=== PATIENT | male | born 1965 | race Caucasian/White ===

== ENCOUNTER 2016-07-13 11:23 | Emergency (ER) | payer MEDICAID ==
[2016-07-13] MEDS ORDERED: LORazepam 2 MG/ML SYRINGE IVP STA (12:41)
[2016-07-13] MEDS ORDERED: SODIUM CHLORIDE 0.9% 1,000 ML IV ONE (12:41)
[2016-07-13] MEDS ORDERED: LORazepam 2 MG/ML SYRINGE ONE (13:02)
== END 2016-07-13 15:14 | disposition home or self-care (01) ==
DX: F10.120 Alcohol abuse with intoxication, uncomplicated (principal); F41.9 Anxiety disorder, unspecified
CPT/HCPCS: 80053; 80320; 83690; 85025; 96361; 96375; 99283; 99284; J2060

== ENCOUNTER 2016-08-24 13:35 | Outpatient (CLI) | payer MEDICAID | END 2016-08-24 13:36 | disposition home or self-care (01) | DX: I10 Essential (primary) hypertension (principal); E78.5 Hyperlipidemia, unspecified ==

== ENCOUNTER 2016-08-28 13:05 | Outpatient (CLI) | payer MEDICAID | END 2016-08-28 13:06 | disposition home or self-care (01) | DX: D53.9 Nutritional anemia, unspecified (principal) ==

== ENCOUNTER 2016-10-30 14:33 | Outpatient (CLI) | payer MEDICAID | END 2016-10-30 14:34 | disposition critical access hospital (66) | DX: R45.851 Suicidal ideations (principal) | CPT/HCPCS: A0425; A0429 ==

== ENCOUNTER 2016-10-30 15:00 | Emergency (ER) | payer MEDICAID ==
--- NOTE | 2016-10-30 15:23 | ED Physician Documentation ---
PD HPI MHE - Stated complaint Stated Complaint: ETOH, SI - Chief complaint Chief Complaint: General - History obtained from History obtained from: Patient - History of Present Illness Primary symptom: Suicidal ideation Timing - onset: Other (several days worse than usual) Pain level max: 0 Pain level now: 0 Contributing factors: Substance abuse - ETOH ("on a reynaga since Wednesday".) Similar symptoms before: Diagnosis (SI, depression, alcoholism.) Recently seen: Not recently seen Review of Systems Unable to obtain: Intoxicated Ten Systems: 10 systems reviewed and negative Constitutional: denies: Fever, Chills Ears: denies: Ear pain Nose: denies: Rhinorrhea / runny nose, Congestion Throat: denies: Sore throat Cardiac: denies: Chest pain / pressure Respiratory: denies: Cough GI: denies: Abdominal Pain, Nausea, Vomiting, Diarrhea Skin: denies: Rash Musculoskeletal: denies: Neck pain, Back pain Psychiatric: reports: Suicidal (states wants the police to shoot him or he wants to take a lot of pills.) PD PAST MEDICAL HISTORY - Past Medical History Past Medical History: Yes Cardiovascular: High cholesterol, Arrhythmia Respiratory: Other Neuro: None Endocrine/Autoimmune: None GI: None : None HEENT: Chronic sinusitis Psych: Depression, Anxiety Musculoskeletal: None Derm: None - Past Surgical History Past Surgical History: No - Present Medications Home Medications: Ambulatory Orders Medication Instructions Recorded Confirmed Atorvastatin Calcium 80 mg PO DAILY 07/13/16 07/13/16 Gabapentin 600 mg PO DAILY 07/13/16 07/13/16 Lorazepam [Ativan] 1 mg PO Q6H PRN #25 tablet 07/13/16 Promethazine [Phenergan] 25 mg PO Q6H PRN #20 tab 07/13/16 - Allergies Allergies/Adverse Reactions: Allergies Allergy/AdvReac Type Severity Reaction Status Date / Time Penicillins Allergy Mild Unknown Verified 07/13/16 12:15 - Social History Does the pt smoke?: Yes Smoking Status: Current every day smoker Does the pt drink ETOH?: Yes Does the pt have substance abuse?: No - Immunizations Immunizations are current?: Yes - POLST Patient has POLST: No PD ED PE NORMAL - Vitals Vital signs reviewed: Yes - General General: Alert and oriented X 3, No acute distress, Well developed/nourished - HEENT HEENT: PERRL, Moist mucous membranes - Neck Neck: Supple, no meningeal sign - Cardiac Cardiac: RRR, Strong equal pulses - Respiratory Respiratory: No respiratory distress, Clear bilaterally - Abdomen Abdomen: Soft, Non tender, Non distended - Derm Derm: Warm and dry, No rash - Extremities Extremities: No deformity - Neuro Neuro: Alert and oriented X 3 - Psych Psych: Other (intoxicated) Results - Vitals Vitals: Vital Signs - 24 hr 10/30/16 10/30/16 10/30/16 15:01 18:16 23:38 Temperature 37.4 C 36.7 C Heart Rate 84 91 67 Respiratory 19 16 16 Rate Blood Pressure 153/103 H 113/90 H 120/81 H O2 Saturation 98 97 97 Oxygen O2 Source Room air - Labs Labs: Laboratory Tests 10/30/16 10/30/16 10/30/16 15:20 15:30 15:30 WBC 7.7 RBC 4.27 L Hgb 14.1 Hct 39.7 L MCV 92.9 MCH 33.0 H MCHC 35.5 RDW 13.7 Plt Count 250 MPV 7.5 Neut # 4.7 Lymph # 2.3 Bertie # 0.6 Eos # 0.0 Baso # 0.1 Absolute Nucleated RBC 0.00 Nucleated RBCs 0.0 Sodium 134 L Potassium 3.7 Chloride 97 L Carbon Dioxide 25 Anion Gap 12.0 BUN 13 Creatinine 0.7 Estimated GFR (MDRD) 118 Glucose 100 Calcium 9.8 Total Bilirubin 1.0 AST 38 ALT 30 Alkaline Phosphatase 51 Total Protein 7.3 Albumin 4.7 Globulin 2.6 Albumin/Globulin Ratio 1.8 Lipase 25 TSH Urine Color STRAW Urine Clarity CLEAR Urine pH 7.0 Ur Specific [place] <=1.005 Urine Protein NEGATIVE Urine Glucose (UA) NEGATIVE Urine Ketones NEGATIVE Urine Occult Blood NEGATIVE Urine Nitrite NEGATIVE Urine Bilirubin NEGATIVE Urine Urobilinogen 0.2 (NORMAL) Ur Leukocyte Esterase NEGATIVE Ur Microscopic Review NOT INDICATED Urine Culture Comments NOT INDICATED Salicylates < 6.0 Urine Opiates Screen NEGATIVE Ur Oxycodone Screen NEGATIVE Urine Methadone Screen NEGATIVE Ur Propoxyphene Screen NEGATIVE Acetaminophen < 10 L Ur Barbiturates Screen NEGATIVE Ur Tricyclics Screen NEGATIVE Ur Phencyclidine Scrn NEGATIVE Ur Amphetamine Screen NEGATIVE U Methamphetamines Scrn NEGATIVE U Benzodiazepines Scrn NEGATIVE Urine Cocaine Screen NEGATIVE U Cannabinoids Screen NEGATIVE Ethyl Alcohol 323.3 10/30/16 15:30 WBC RBC Hgb Hct MCV MCH MCHC RDW Plt Count MPV Neut # Lymph # Bertie # Eos # Baso # Absolute Nucleated RBC Nucleated RBCs Sodium Potassium Chloride Carbon Dioxide Anion Gap BUN Creatinine Estimated GFR (MDRD) Glucose Calcium Total Bilirubin AST ALT Alkaline Phosphatase Total Protein Albumin Globulin Albumin/Globulin Ratio Lipase TSH 1.19 Urine Color Urine Clarity Urine pH Ur Specific [place] Urine Protein Urine Glucose (UA) Urine Ketones Urine Occult Blood Urine Nitrite Urine Bilirubin Urine Urobilinogen Ur Leukocyte Esterase Ur Microscopic Review Urine Culture Comments Salicylates Urine Opiates Screen Ur Oxycodone Screen Urine Methadone Screen Ur Propoxyphene Screen Acetaminophen Ur Barbiturates Screen Ur Tricyclics Screen Ur Phencyclidine Scrn Ur Amphetamine Screen U Methamphetamines Scrn U Benzodiazepines Scrn Urine Cocaine Screen U Cannabinoids Screen Ethyl Alcohol PD MEDICAL DECISION MAKING - ED course Complexity details: reviewed old records, reviewed results, re-evaluated patient , considered differential, d/w patient ED course: Patient is a 51-year-old male with suicidal ideation. States that he has lost everything in his life and has nothing to live for. Does not see the point of going to treatment as it has not helped in the past. Patient is an alcoholic and states that he began drinking again because his doctor would not give him Ativan. He lives at home with his elderly mother. As he is significantly intoxicated here, will allow him to sober in the emergency department and be reevaluated for suicidal ideation. Patient signed out to Dr. Beach, [facility] emergency department physician for further evaluation. This document was made in part using voice recognition software. While efforts are made to proofread this document, sound alike and grammatical errors may occur. Departure - Departure Clinical Impression: Suicidal ideation Alcohol intoxication Qualifiers: Complication of substance-induced condition: uncomplicated Qualified Code(s): F10.120 - Alcohol abuse with intoxication, uncomplicated Depression Qualifiers: Depression Type: unspecified Qualified Code(s): F32.9 - Major depressive disorder, single episode, unspecified Condition: Stable
[2016-10-30 15:35] LABS: BILIRUBIN,URINE NEGATIVE (NEGATIVE)
[2016-10-30 15:36] LABS: UA CHARGE (STRIP ONLY) YES; UR CULTURE IF IND NOT INDICATED
[2016-10-30] MEDS ORDERED: FOLIC ACID INJ 1 MG, THIAMINE INJ 100 MG, MAGNESIUM SULFATE 2 GM, MULTIVITAMIN 10 ML in... IV STA ×5 (15:46)
[2016-10-30] MEDS ORDERED: PANTOPRAZOLE 40 MG VIAL IVP STA (15:46)
[2016-10-30] MEDS ORDERED: PANTOPRAZOLE 40 MG VIAL ONE (15:47)
[2016-10-30 15:49] LABS: BASOPHILS # (AUTO) 0.1 10^3/uL (0.0-0.1); EOSINOPHILS % (AUTO) 0.3 %; HCT - HEMATOCRIT 39.7 % (42.0-52.0); HGB - HEMOGLOBIN 14.1 g/dL (14.0-18.0); LYMPHOCYTES # (AUTO) 2.3 10^3/uL (1.5-3.5); LYMPHOCYTES % (AUTO) 29.9 %; MEAN CORPUSCULAR HGB CONC 35.5 g/dL (32.0-36.0); MEAN CORPUSCULAR VOLUME 92.9 fL (80.0-94.0); MEAN PLATELET VOLUME 7.5 fL (7.4-11.4); MONOCYTES # (AUTO) 0.6 10^3/uL (0.0-1.0); MONOCYTES % (AUTO) 7.2 %; NEUTROPHILS # (AUTO) 4.7 10^3/uL (1.5-6.6); NEUTROPHILS % (AUTO) 61.6 %; RED BLOOD COUNT 4.27 10^6/uL (4.70-6.10); RED CELL DISTRIBUTION WIDTH 13.7 % (12.0-15.0); UNCORRECTED WHITE BLOOD COUNT 7.7 x10^3/uL; WHITE BLOOD COUNT 7.7 x10^3/uL (4.8-10.8)
[2016-10-30 15:59] LABS: ALBUMIN/GLOBULIN RATIO 1.8 (1.0-2.2); BUN - BLOOD UREA NITROGEN 13 mg/dL (6-20); CALCIUM 9.8 mg/dL (8.5-10.3); CARBON DIOXIDE - CO2 25 mmol/L (21-32); CHLORIDE 97 mmol/L (101-111); CREATININE 0.7 mg/dL (0.6-1.2); GFR - MDRD 118 (>89); GLUCOSE 100 mg/dL (70-100); LIPASE 25 U/L (22-51); POTASSIUM 3.7 mmol/L (3.5-5.0); SALICYLATE < 6.0 mg/dL; SODIUM 134 mmol/L (135-145); TOTAL PROTEIN 7.3 g/dL (6.7-8.2)
[2016-10-30 16:04] LABS: ACETAMINOPHEN < 10 ug/mL (10-30)
[2016-10-30] MEDS ORDERED: IBUPROFEN 600 MG TABLET PO ONE (20:55)
[2016-10-30] MEDS ORDERED: IBUPROFEN 600 MG TABLET PO STA (21:47)
[2016-10-31] MEDS ORDERED: chlordiazePOXIDE 25 MG CAPSULE PO ONE (01:52)
[2016-10-31] MEDS ORDERED: chlordiazePOXIDE 25 MG CAPSULE PO STA (01:52)
[2016-10-31 01:57] VITALS: BP 133/83
--- NOTE | 2016-10-31 02:01 | ED Physician Documentation ---
ED Addendum - Addendum Addendum: 10/31/16 02:00 Patient was signed over to me from dr. Gutierrez. Patient was pending sobriety and re-evaluation. repeat etoh was 62. Patient was awake, alert and coherent. Patient was starting to feel a little tremulous and was treated with librium. patient states that he remembers last night and that he went to the ambulance station and that he wanted help to stop drinking. questioning this morning revealed an awake and alert patient. he denied any suicidal or homicidal ideation at this point. Patient's vital signs were within normal limits and patient was stable for discharge with outpatient follow up.
== END 2016-10-31 02:18 | disposition home or self-care (01) ==
LOC: EDUNIT# → SUPCPDRO 15:00 → ED 15:00
DX: F10.129 Alcohol abuse with intoxication, unspecified (principal); F32.9 Major depressive disorder, single episode, unspecified; R45.851 Suicidal ideations; E78.00 Pure hypercholesterolemia, unspecified; F17.200 Nicotine dependence, unspecified, uncomplicated
CPT/HCPCS: 36415; 80053; 80306; 80307; 80320; 80329; 81003; 83690; 84443; 85025; 96374; 96375; 99284; A9270; J3411; 81001; 87086

== ENCOUNTER 2017-02-12 09:47 | Outpatient (CLI) | payer MEDICAID | END 2017-02-12 09:48 | disposition EMS.NT | LOC: EMS 09:47 | PROVIDERS: ATTEND Surgery | DX: Z03.89 Encounter for observation for other suspected diseases and conditions ruled out (principal) ==

== ENCOUNTER → 2017-05-30 | Outpatient (CLI) | payer MEDICAID | LOC: LAB.F 08:00 | PROVIDERS: ATTEND Nurse Practitioner Family | DX: Z53.9 Procedure and treatment not carried out, unspecified reason (principal) ==

== ENCOUNTER 2017-06-03 11:35 | Outpatient (CLI) | payer MEDICAID ==
[2017-06-03 18:32] LABS: BASOPHILS % (AUTO) 0.6 %; EOSINOPHILS # (AUTO) 0.1 10^3/uL (0.0-0.7); EOSINOPHILS % (AUTO) 2.6 %; HCT - HEMATOCRIT 43.3 % (42.0-52.0); HGB - HEMOGLOBIN 14.4 g/dL (14.0-18.0); LYMPHOCYTES # (AUTO) 1.9 10^3/uL (1.5-3.5); LYMPHOCYTES % (AUTO) 34.9 %; MEAN CORPUSCULAR HEMOGLOBIN 32.5 pg (27.0-31.0); MEAN CORPUSCULAR HGB CONC 33.2 g/dL (32.0-36.0); MEAN CORPUSCULAR VOLUME 97.9 fL (80.0-94.0); MEAN PLATELET VOLUME 8.3 fL (7.4-11.4); MONOCYTES # (AUTO) 0.6 10^3/uL (0.0-1.0); MONOCYTES % (AUTO) 10.3 %; NEUTROPHILS # (AUTO) 2.8 10^3/uL (1.5-6.6); NEUTROPHILS % (AUTO) 51.6 %; NUCLEATED RED BLOOD CELLS AUTO 0.1 /100WBC; RED BLOOD COUNT 4.42 10^6/uL (4.70-6.10); RED CELL DISTRIBUTION WIDTH 14.4 % (12.0-15.0); UNCORRECTED WHITE BLOOD COUNT 5.4 x10^3/uL; WHITE BLOOD COUNT 5.4 x10^3/uL (4.8-10.8)
[2017-06-03 18:42] LABS: ALBUMIN/GLOBULIN RATIO 1.7 (1.0-2.2); BILIRUBIN,TOTAL 0.9 mg/dL (0.2-1.0); BUN - BLOOD UREA NITROGEN 16 mg/dL (6-20); CALCIUM 9.8 mg/dL (8.5-10.3); CARBON DIOXIDE - CO2 26 mmol/L (21-32); CHLORIDE 101 mmol/L (101-111); CHOL/HDL RATIO 4.4 (<5.0); CHOLESTEROL 258 mg/dL; CREATININE 0.8 mg/dL (0.6-1.2); GFR - MDRD 101 (>89); GLUCOSE 106 mg/dL (70-100); HDL CHOLESTEROL 59 mg/dL; LDL/HDL RATIO 2.8 (<3.6); POTASSIUM 4.6 mmol/L (3.5-5.0); SODIUM 137 mmol/L (135-145); TOTAL PROTEIN 7.7 g/dL (6.7-8.2); TRIGLYCERIDES 178 mg/dL; VLDL CHOLESTEROL 36 mg/dL
== END 2017-06-03 11:36 | disposition home or self-care (01) ==
LOC: LAB.F 11:35
PROVIDERS: ATTEND Nurse Practitioner Family
DX: I10 Essential (primary) hypertension (principal); E78.5 Hyperlipidemia, unspecified; Z12.11 Encounter for screening for malignant neoplasm of colon
CPT/HCPCS: 36415; 80050; 80061; 82270

== ENCOUNTER 2017-08-05 08:21 | Outpatient (CLI) | payer MEDICAID ==
[2017-08-05 14:26] LABS: ALBUMIN 4.7 g/dL (3.2-5.5); ALKALINE PHOSPHATASE 58 IU/L (42-121); ALT ALANINE AMINOTRANSFERASE 29 IU/L (10-60); AST ASPARTATE AMINOTRANSFERASE 33 IU/L (10-42); BILIRUBIN,DIRECT 0.2 mg/dL (0.1-0.5); BILIRUBIN,TOTAL 1.1 mg/dL (0.2-1.0); CHOL/HDL RATIO 2.7 (<5.0); CHOLESTEROL 146 mg/dL; HDL CHOLESTEROL 55 mg/dL; LDL CHOLESTEROL,CALCULATED 74 mg/dL; LDL/HDL RATIO 1.3 (<3.6); TOTAL PROTEIN 7.3 g/dL (6.7-8.2); VLDL CHOLESTEROL 17 mg/dL
== END 2017-08-05 08:22 | disposition home or self-care (01) ==
LOC: LAB.F 08:21
PROVIDERS: ATTEND Nurse Practitioner Family
DX: E78.5 Hyperlipidemia, unspecified (principal)
CPT/HCPCS: 36415; 80061; 80076; 83721

== ENCOUNTER 2018-05-02 07:25 | Outpatient (CLI) | payer MEDICAID | END 2018-05-02 07:26 | disposition EMS.NT | LOC: EMS 07:25 | PROVIDERS: ATTEND Surgery | DX: R44.1 Visual hallucinations (principal) ==

== ENCOUNTER 2018-05-02 08:16 | Inpatient (IN) | payer MEDICAID ==
--- NOTE | 2018-05-02 08:34 | ED Physician Documentation ---
PD HPI ALTERED MENTAL STATUS - Stated complaint Stated Complaint: TREMORS - Chief complaint Chief Complaint: MHE - History obtained from History obtained from: Patient - History of Present Illness Timing - onset: Today Timing - duration: Days (1) Timing - details: Gradual onset, Still present Quality / character: Agitated, Hallucinating (The patient was feeling anxious and reportedly was a little bit hyperactive agitated but not upset or combative. He was at home and thought he saw cats in the house that were not there and also people standing on the porch that were not there according to his mother. She called the EMS. The Dance Historian noted that the patient was really little bit anxious and agitated and was adamant about having the visions. However the officer could not see anything either. The patient was brought here for further evaluation with concern of withdrawal delirium. He states he does have history of alcoholism and had only been having 2 drinks a day for the last several months. He states he drank a little more heavily with with the football game last and may be for a few days before that. He states he then wanted to stop and so had only had 1 glass of wine 2 days ago but otherwise no alcohol for the last 3-1/2 days aside from that. He denies any new medications. He denies any recreational drug use.) Associated symptoms: No: Fever, Headache, Stiff neck, Cough, NVD, General weakness Contributing factors: Substance abuse (alcohol, with last drink 2 days ago). No: Recent med change, Recent illness, Intoxicated [place] status: Alert and oriented X 3, Ambulatory Similar symptoms before: Diagnosis (had withdrawal delerium and hallucinations few years ago, then was in detox.) Recently seen: Not recently seen Review of Systems Constitutional: denies: Fever, Chills, Myalgias Nose: denies: Rhinorrhea / runny nose, Congestion Throat: denies: Sore throat Cardiac: denies: Chest pain / pressure Respiratory: denies: Cough GI: reports: Nausea (for few days and states has not had much fluids nor food for few days.). denies: Vomiting, Diarrhea : denies: Dysuria, Frequency Neurologic: reports: Confused. denies: Generalized weakness, Focal weakness, Headache, Head injury PD PAST MEDICAL HISTORY - Past Medical History Cardiovascular: High cholesterol, Arrhythmia Respiratory: Other Endocrine/Autoimmune: None GI: None : None HEENT: Chronic sinusitis Psych: Depression, Anxiety Musculoskeletal: None Derm: None - Past Surgical History Past Surgical History: No - Present Medications Home Medications: Ambulatory Orders Medication Instructions Recorded Confirmed Gabapentin 600 mg PO TID 07/13/16 05/02/18 Lisinopril 40 mg PO DAILY 05/02/18 05/02/18 Propranolol HCl 20 mg PO TID 05/02/18 05/02/18 hydroCHLOROthiazide 25 mg PO DAILY 05/02/18 05/02/18 [Hydrochlorothiazide] - Allergies Allergies/Adverse Reactions: Allergies Allergy/AdvReac Type Severity Reaction Status Date / Time Penicillins Allergy Mild Unknown Verified 05/02/18 08:24 - Social History Does the pt smoke?: Yes Smoking Status: Current every day smoker Does the pt drink ETOH?: Yes Does the pt have substance abuse?: No - Immunizations Immunizations are current?: Yes - POLST Patient has POLST: No PD ED PE NORMAL - Vitals Vital signs reviewed: Yes - General General: Alert and oriented X 3, Well developed/nourished, Other (somewhat anxious but pleasant and interacts. Moderately hyperactive/restless. Mild tremors. ) - HEENT HEENT: Atraumatic, Ears normal, Pharynx benign. No: Moist mucous membranes - Neck Neck: Supple, no meningeal sign, No adenopathy - Cardiac Cardiac: RRR, No murmur - Respiratory Respiratory: Clear bilaterally - Abdomen Abdomen: Soft, Non tender - Back Back: No CVA TTP - Derm Derm: Normal color, Warm and dry - Extremities Extremities: No deformity, No tenderness to palpate, Normal ROM s pain - Neuro Neuro: Alert and oriented X 3, senior android developer 2-12 intact, No motor deficit, No sensory deficit, Normal speech Eye Opening: Spontaneous Motor: Obeys Commands Verbal: Oriented GCS Score: 15 Results - Vitals Vitals: Vital Signs - 24 hr 05/02/18 05/02/18 08:20 10:34 Temperature 36.7 C Heart Rate 97 95 Respiratory 16 20 Rate Blood Pressure 158/131 H 122/76 O2 Saturation 97 97 Oxygen O2 Source Room air - Labs Labs: Laboratory Tests 05/02/18 05/02/18 05/02/18 09:10 09:10 09:10 WBC 12.3 H RBC 4.11 L Hgb 13.9 L Hct 38.2 L MCV 92.9 MCH 33.7 H MCHC 36.3 H RDW 12.6 Plt Count 157 MPV 7.7 Neut # (Auto) 9.1 H Lymph # (Auto) 1.6 Stone # (Auto) 1.4 H Eos # (Auto) 0.0 Baso # (Auto) 0.1 Absolute Nucleated RBC 0.00 Nucleated RBC % 0.0 PT INR Sodium 119 L* Potassium 3.0 L Chloride 85 L Carbon Dioxide 22 Anion Gap 12.0 BUN 30 H Creatinine 1.2 Estimated GFR (MDRD) 63 L Glucose 118 H Calcium 9.1 Magnesium 1.9 Total Bilirubin 1.5 H AST 44 H ALT 27 Alkaline Phosphatase 57 Total Protein 7.1 Albumin 4.6 Globulin 2.5 Albumin/Globulin Ratio 1.8 Lipase 60 H Ethyl Alcohol 05/02/18 05/02/18 09:10 09:40 WBC RBC Hgb Hct MCV MCH MCHC RDW Plt Count MPV Neut # (Auto) Lymph # (Auto) Stone # (Auto) Eos # (Auto) Baso # (Auto) Absolute Nucleated RBC Nucleated RBC % PT 11.5 INR 1.0 Sodium Potassium Chloride Carbon Dioxide Anion Gap BUN Creatinine Estimated GFR (MDRD) Glucose Calcium Magnesium Total Bilirubin AST ALT Alkaline Phosphatase Total Protein Albumin Globulin Albumin/Globulin Ratio Lipase Ethyl Alcohol < 5.0 PD MEDICAL DECISION MAKING - ED course Complexity details: reviewed results (His sodium level is low and is acutely low compared to prior blood tests in the past. This could be accounting for some of the confusion and agitation. We will give him IV fluids. However he will be hard to tell which causes most and we also want to increase his sodium slower given the low level. I therefore think he needs to be in the hospital for further care and evaluation.), re-evaluated patient, considered differential (He is a bit hyperactive and is certain that he had the visions of people on his porch and the cats in the house. This could be withdrawal delirium and he had been drinking a little bit heavier and then states he only had one glass of wine since . So that would be a possibility. Will check metabolic causes as well.), d/w patient Departure - Departure Disposition: 66 [facility] DC/Xfer Clinical Impression: Acute hyponatremia, Visual hallucinations, Alcohol withdrawal delirium, acute, hyperactive Condition: Stable Discharge Date/Time: 05/02/18 12:57
[2018-05-02] MEDS ORDERED: LORazepam 0.5 MG TABLET PO STA (09:03)
[2018-05-02 09:13] LABS: BASOPHILS # (AUTO) 0.1 10^3/uL (0.0-0.1); BASOPHILS % (AUTO) 1.1 %; EOSINOPHILS % (AUTO) 0.3 %; HGB - HEMOGLOBIN 13.9 g/dL (14.0-18.0); LYMPHOCYTES # (AUTO) 1.6 10^3/uL (1.5-3.5); LYMPHOCYTES % (AUTO) 12.9 %; MEAN CORPUSCULAR HEMOGLOBIN 33.7 pg (27.0-31.0); MEAN CORPUSCULAR HGB CONC 36.3 g/dL (32.0-36.0); MEAN CORPUSCULAR VOLUME 92.9 fL (80.0-94.0); MEAN PLATELET VOLUME 7.7 fL (7.4-11.4); MONOCYTES # (AUTO) 1.4 10^3/uL (0.0-1.0); MONOCYTES % (AUTO) 11.7 %; NEUTROPHILS # (AUTO) 9.1 10^3/uL (1.5-6.6); PLT - PLATELET COUNT 157 10^3/uL (130-450); RED BLOOD COUNT 4.11 10^6/uL (4.70-6.10); RED CELL DISTRIBUTION WIDTH 12.6 % (12.0-15.0); WHITE BLOOD COUNT 12.3 x10^3/uL (4.8-10.8)
[2018-05-02 09:56] LABS: ALBUMIN 4.6 g/dL (3.2-5.5); ALBUMIN/GLOBULIN RATIO 1.8 (1.0-2.2); BILIRUBIN,TOTAL 1.5 mg/dL (0.2-1.0); CALCIUM 9.1 mg/dL (8.5-10.3); CREATININE 1.2 mg/dL (0.6-1.2); TOTAL PROTEIN 7.1 g/dL (6.7-8.2)
[2018-05-02] MEDS ORDERED: SODIUM CHLORIDE 0.9% 1,000 ML IV ONE ×2 (10:04→18:58)
[2018-05-02] MEDS ORDERED: ONDANSETRON 4 MG/2 ML VIAL IVP PRN (11:56)
[2018-05-02] MEDS ORDERED: SODIUM CHLORIDE 0.9% 1,000 ML IV SCH (12:00)
[2018-05-02 12:45] LABS: PT - PROTHROMBIN TIME 11.5 secs (9.9-12.6)
--- NOTE | 2018-05-02 13:44 | HISTORY & PHYSICAL EXAMINATION ---
Chief Complaint - Chief Complaint Chief Complaint: tremors History of Present Illness - History of Present Illness HPI Comment/Other: Mr. Acosta is a 52-yrs-old male with a PMH significant for HTN, essential tremor, alcoholism, current cigarette smoker, who present ER for hyperactive agitated altered mental status, and alcohol withdrawal delirium and tremors. He states he drank a quite more heavily with the football game last and may had heavily drunk for a few days before. He states his last drinking was only had 1 glass of wine 2 days ago but otherwise no alcohol for the rest two days. He report he still smoke cigarette half pack per day. He denies any new medications. He denies any illicit drug use. he decline to have Nicotine patch. Pt states he does have history of alcoholism. Pt state he is living with mother and take care of his mother. Per ER report, according to his mother's report, pt was at home and thought he saw cats in the house that were not there, and also he saw people standing on the porch but there are no people. Pt denies chest pain, headache, shortness of breath. Pt's Na is 119, potassium is 3.0, BUN 30, Creatinine 1.2, elevated bilirubin 1.5, and WBC is 12.3. Pt's is hemodynamic stable. History - Past Medical History Cardiovascular: reports: High cholesterol, Arrhythmia Respiratory: reports: Other Endocrine/Autoimmune: reports: None GI: reports: None : reports: None HEENT: reports: Chronic sinusitis Psych: reports: Depression, Anxiety Musculoskeletal: reports: None Derm: reports: None MRSA Hx?: No - Family & Social History Family History Comment/Other: pt is living with mother at [facility]. pt report he had three brothers and two sisters. Pt state he is single, no child. Social History Notes: pt state he did smoke cigarette hald pack perday, alcoholism, denies illicit drug abuse - POLST Patient has POLST: No POLST Status: Full Code Meds/Allgy - Home Medications Home Medications: Ambulatory Orders Medication Instructions Recorded Confirmed Gabapentin 600 mg PO TID 07/13/16 05/02/18 Lisinopril 40 mg PO DAILY 05/02/18 05/02/18 Propranolol HCl 20 mg PO TID 05/02/18 05/02/18 hydroCHLOROthiazide 25 mg PO DAILY 05/02/18 05/02/18 [Hydrochlorothiazide] - Allergies Allergies/Adverse Reactions: Allergies Allergy/AdvReac Type Severity Reaction Status Date / Time Penicillins Allergy Mild Unknown Verified 05/02/18 08:24 Review of Systems - Constitutional Constitutional: denies: Fever, Chills, Poor appetite, Diaphoresis - Eyes Eyes: denies: Pain, Irritation, Blurred vision, Spots in vision, Vision loss, Dipolpia - Ears, Nose & Throat Ears, Nose & Throat: denies: Ear pain, Hearing loss, Hearing aids, Tinnitus, Vertigo, Nosebleeds, Postnasal drainage, Dentures, Sore throat, Mouth lesions, Bleeding gums - Cardiovascular Cariovascular: denies: Irregular heart rate, Palpitations, Chest pain, Edema, Lightheadedness, Syncope, Exertional dyspnea - Respiratory Respiratory: denies: Cough, Sputum production, Wheezing, Hemoptysis, Orthopnea, SOB at rest, SOB with exertion - Gastrointestinal Gastrointestinal: denies: Abdominal pain, Constipation, Diarrhea, Rectal bleeding, Black stools, Bloody stools, Nausea, Vomiting, Coffee grounds emesis, Reflux/heartburn - Genitourinary Genitourinary: denies: Dysuria, Urgency, Hematuria, Incontinence, Flank pain, Urethral discharge - Musculoskeletal Musculoskeletal: denies: Muscle pain, Back pain, Stiffness, Limited range of mo tion, Muscle weakness, Joint pain - Integumentary Integumentary: denies: Rash, Pruritis, Dryness, Lumps, Pigment changes, Nail changes - Neurological Neurological: denies: General weakness, Focal weakness, Headache, Dizziness, Numbness, Memory problems, Pre-existing deficit, Abnormal gait, Seizures, Incoordination, Slurred speech - Psychiatric Psychiatric: reports: Hallucinations. denies: Depression, Anxiety, Suicidal, Delusions, Homicidal - Endocrine Endocrine: denies: Polyphagia, Intolerance to cold - Hematologic/Lymphatic Hematologic/Lymphatic: denies: Anemia, Petechiae, Blood clots, Bleeding t endencies Prior Level of Functionality: independent Exam - Vital Signs Reviewed Vital Signs: Yes Vital Signs: Vital Signs x48h Temp Pulse Pulse Resp BP BP Pulse Ox 05/02/18 13:05 36.6 C 100 16 111/74 99 05/02/18 12:40 36.5 C 88 19 130/77 97 05/02/18 12:39 36.5 C 88 130/77 98 05/02/18 10:34 95 20 122/76 97 05/02/18 08:20 36.7 C 97 16 158/131 H 97 - Physical Exam General Appearance: positive: Alert, Mild distress. negative: Lethargic Eyes Bilateral: positive: Normal inspection, PERRL, No lid inflammation, Conjunctivae nml ENT: positive: ENT inspection nml, Pharynx nml, No signs of dehydration. negati ve: Purulent nasal drainage, Pharyngeal erythema, Oral lesions Neck: positive: Nml inspection, Thyroid nml, No JVD, Trachea midline. negative: Thyromegaly, Lymphadenopathy (R), Lymphadenopathy (L), Stiff neck, Swelling/bruising, Tracheal deviation Respiratory: positive: Chest non-tender, No respiratory distress, Breath sounds nml. negative: Wheezes, Rales, Rhonchi Cardiovascular: positive: Regular rate & rhythm, No murmur, No gallop. negative: Irregularly irregular, Extrasystoles, Tachycardia, Bradycardia, JVD present, Systolic murmur, Diastolic murmur Peripheral Pulses: positive: 2+ Abdomen: positive: Non-tender, No organomegaly, Nml bowel sounds, No distention. negative: Tenderness, Guarding, Rebound Back: positive: Nml inspection. negative: CVA tenderness (R), CVA tenderness (L) Skin: positive: Color nml, No rash, Warm, Dry. negative: Cyanosis, Diaphoresis, Pallor Extremities: positive: Non-tender, Full ROM, Nml appearance. negative: Calf tenderness, Joint swelling, Isabel's sign/cords Neurologic/Psychiatric: positive: Motor nml, Sensation nml. negative: Weakness, Sensory loss, Facial droop, Slurred/abnml speech, Depressed mood/affect Sepsis Event Note (H) - Evaluation Current Stage of Sepsis: Ruled out Conclusion/Plan - Problem List (1) Alcohol withdrawal delirium, acute, hyperactive Conclusion/Plan: hx of alcoholism, recent drunk CAWA protocol, Bana bag IV of ativan droop neuro check ACHS glucose monitor lab, tele, vital monitor ICU admission (2) Acute hyponatremia Conclusion/Plan: pt had home HCTZ, will hold. It may be caused by the medication, alcohol drunk and dehydration IVF of NS lab monitor (3) Visual hallucinations Conclusion/Plan: it may be partial of alcohol withdrawal on ICU floor and neuro check CAWA evaluation and treatment (4) Hypokalemia Conclusion/Plan: K is 3, pt did not present palpitation, chest pain. replacement of potassium. lab check (5) Tremor Conclusion/Plan: it may be caused alcohol withdrawal resume home Propranolol CAWA protocol to manage alcohol withdrawal (6) HTN (hypertension) Conclusion/Plan: stable, resume home Lisinopril and Propranolol vital monitor (7) Dehydration Conclusion/Plan: pt's lab reveals slight increase BUN and Creatinine, and present dry mouth IVF of NS (8) Elevated bilirubin Conclusion/Plan: pt's total Bili is 1.5 today, mild increase. it may be caused Alcoholism and chronic liver damage from alcohol lab monitor, if continue increase, may need image study. (9) Full code status Conclusion/Plan: pt request full code - Lab Results Fish Bones: 05/02/18 09:10 05/02/18 09:10 Core Measures - Anticipated LOS I expect patient to be DC'd or transferred within 96 hours.: Yes - DVT/VTE - Prophylaxis VTE/DVT Device ordered at admit?: Yes VTE/DVT Prophylaxis med ordered at admit?: Yes
[2018-05-02 13:59] LABS: BILIRUBIN,URINE NEGATIVE (NEGATIVE); GLUCOSE, URINE (UA) NEGATIVE (NEGATIVE); KETONES,URINE (UA) NEGATIVE (NEGATIVE); LEUKOCYTE ESTERASE, URINE NEGATIVE (NEGATIVE); MUDS CUTOFF CONCENTRATIONS CUTOFF CONC BELOW:; NITRITE,URINE NEGATIVE (NEGATIVE); OCCULT BLOOD,URINE NEGATIVE (NEGATIVE); PROTEIN,URINE NEGATIVE (NEGATIVE); UROBILINOGEN,URINE 0.2 (NORMAL) E.U./dL (NORMAL)
[2018-05-02 14:00] LABS: CLARITY,URINE CLEAR (CLEAR)
[2018-05-02 14:12] LABS: AMPHETAMINE SCREEN,URINE NEGATIVE (NEGATIVE); BENZODIAZEPINES SCREEN, URINE NEGATIVE (NEGATIVE); COCAINE SCREEN URINE NEGATIVE (NEGATIVE); METHADONE SCREEN, URINE NEGATIVE (NEGATIVE); METHAMPHETAMINES SCREEN, URINE NEGATIVE (NEGATIVE); OPIATE SCREEN, URINE NEGATIVE (NEGATIVE); OXYCODONE SCREEN, URINE NEGATIVE (NEGATIVE); PROPOXYPHENE SCREEN, URINE NEGATIVE (NEGATIVE); TRICYCLIC ANTIDEPRESSANT,URINE NEGATIVE (NEGATIVE)
[2018-05-02] MEDS: MULTIVITAMIN 10 ML, THIAMINE INJ 100 MG, FOLIC ACID INJ 1 MG in SODIUM CHLORIDE 0.9% 1,... IV SCH (14:24)
[2018-05-02] MEDS: LORazepam 2 MG/ML VIAL IVP PRN ×3 (14:39→16:29)
[2018-05-02] MEDS ORDERED: POTASSIUM CHLORIDE 20 MEQ TABLET PO ONE (16:00)
[2018-05-02] MEDS ORDERED: POTASSIUM CHLOR 20 MEQ/100 ML 20 MEQ/100 ML BAG IV ONE (16:01)
[2018-05-02] MEDS ORDERED: LORazepam 2 MG/ML VIAL IVP PRN (17:48)
[2018-05-02 18:29] LABS: BASOPHILS % (AUTO) 0.5 %; EOSINOPHILS # (AUTO) 0.1 10^3/uL (0.0-0.7); EOSINOPHILS % (AUTO) 0.8 %; LYMPHOCYTES # (AUTO) 1.7 10^3/uL (1.5-3.5); LYMPHOCYTES % (AUTO) 18.2 %; MEAN CORPUSCULAR HEMOGLOBIN 33.9 pg (27.0-31.0); MEAN CORPUSCULAR VOLUME 96.9 fL (80.0-94.0); MEAN PLATELET VOLUME 7.5 fL (7.4-11.4); MONOCYTES # (AUTO) 1.2 10^3/uL (0.0-1.0); NEUTROPHILS # (AUTO) 6.4 10^3/uL (1.5-6.6); NEUTROPHILS % (AUTO) 67.5 %; PLT - PLATELET COUNT 151 10^3/uL (130-450); RED BLOOD COUNT 3.82 10^6/uL (4.70-6.10); RED CELL DISTRIBUTION WIDTH 12.8 % (12.0-15.0); WHITE BLOOD COUNT 9.5 x10^3/uL (4.8-10.8)
[2018-05-02 18:41] LABS: ALBUMIN/GLOBULIN RATIO 1.5 (1.0-2.2); CALCIUM 8.6 mg/dL (8.5-10.3); TOTAL PROTEIN 6.7 g/dL (6.7-8.2)
[2018-05-02] MEDS: SODIUM CHLORIDE FLUSH 0.9% 10 ML SYRINGE IVP SCH ×2 (18:50→23:55)
[2018-05-02] MEDS: LORazepam 100MG/100ML 100 ML IV SCH (19:18)
[2018-05-02] MEDS ORDERED: FAMOTIDINE 20 MG TABLET PO SCH (21:00)
[2018-05-02] MEDS: PROPRANOLOL 10 MG TABLET PO SCH (21:51)
--- NOTE | 2018-05-02 21:55 | CT Report ---
Reason: AMS, unsteady Procedure Date: 05/02/2018 Accession Number: [id number] / [id number] Procedure: CT - Head W/O CPT Code: FULL RESULT: EXAM: CT HEAD EXAM DATE: 05/02/2018 09:42 PM. CLINICAL HISTORY: AMS, unsteady. COMPARISON: HEAD W/O 07/14/2013 12:22 PM. TECHNIQUE: Multiaxial CT images were obtained from the foramen magnum to the vertex. Reformats: Sagittal and coronal. IV contrast: None. In accordance with CT protocol optimization, one or more of the following dose reduction techniques were utilized for this exam: automated exposure control, adjustment of mA and/or KV based on patient size, or use of iterative reconstructive technique. FINDINGS: Parenchyma: No acute changes are noted within the brain parenchyma. There are areas of decreased attenuation within the white matter tracts compatible with small vessel atherosclerotic vascular changes. There are no infarction or hemorrhagic lesions. Extraaxial Spaces: The CSF spaces are generous yet stable. No significant changes. No subdural or epidural collections identified. Ventricles: Normal in size and position. Sinuses and Orbits: Imaged paranasal sinuses, orbits, and mastoids show no significant abnormality. Bones: No evidence of fracture or calvarial defect. Other: None. IMPRESSION: Stable appearance of the brain compared to the prior study. No acute findings. RADIA
[2018-05-02] MEDS: SODIUM CHLORIDE 0.9% 1,000 ML IV SCH (23:55)
[2018-05-03] MEDS: LORazepam 100MG/100ML 100 ML IV SCH (03:37)
[2018-05-03] MEDS: PROPRANOLOL 10 MG TABLET PO SCH (06:39)
[2018-05-03 07:22] LABS: BASOPHILS # (AUTO) 0.1 10^3/uL (0.0-0.1); BASOPHILS % (AUTO) 0.7 %; EOSINOPHILS # (AUTO) 0.1 10^3/uL (0.0-0.7); EOSINOPHILS % (AUTO) 1.8 %; LYMPHOCYTES # (AUTO) 1.2 10^3/uL (1.5-3.5); LYMPHOCYTES % (AUTO) 14.8 %; MEAN CORPUSCULAR HEMOGLOBIN 34.1 pg (27.0-31.0); MEAN CORPUSCULAR HGB CONC 35.5 g/dL (32.0-36.0); MEAN CORPUSCULAR VOLUME 96.1 fL (80.0-94.0); MEAN PLATELET VOLUME 7.4 fL (7.4-11.4); MONOCYTES % (AUTO) 12.4 %; NEUTROPHILS # (AUTO) 5.8 10^3/uL (1.5-6.6); NEUTROPHILS % (AUTO) 70.3 %; PLT - PLATELET COUNT 143 10^3/uL (130-450); RED BLOOD COUNT 3.82 10^6/uL (4.70-6.10); RED CELL DISTRIBUTION WIDTH 13.2 % (12.0-15.0); WHITE BLOOD COUNT 8.2 x10^3/uL (4.8-10.8)
[2018-05-03 07:38] LABS: ALBUMIN 3.8 g/dL (3.2-5.5); ALBUMIN/GLOBULIN RATIO 1.4 (1.0-2.2); BILIRUBIN,TOTAL 1.1 mg/dL (0.2-1.0); CALCIUM 8.4 mg/dL (8.5-10.3); CREATININE 0.8 mg/dL (0.6-1.2); MAGNESIUM 2.3 mg/dL (1.7-2.8); TOTAL PROTEIN 6.5 g/dL (6.7-8.2)
[2018-05-03] MEDS ORDERED: LISINOPRIL 20 MG TABLET PO SCH (09:00)
[2018-05-03] MEDS: FAMOTIDINE 20 MG/50 ML 50 ML IV SCH ×2 (09:11→21:31)
[2018-05-03] MEDS: MULTIVITAMIN 10 ML, THIAMINE INJ 100 MG, FOLIC ACID INJ 1 MG in SODIUM CHLORIDE 0.9% 1,... IV SCH (09:14)
[2018-05-03] MEDS: POLYETHYLENE GLYCOL 3350 17 GM PACKET PO SCH (09:23)
[2018-05-03] MEDS: SODIUM CHLORIDE FLUSH 0.9% 10 ML SYRINGE IVP SCH ×2 (09:24→17:11)
[2018-05-03] MEDS: LORazepam 2 MG/ML VIAL IVP PRN ×2 (16:29→20:03)
[2018-05-03] MEDS: SODIUM CHLORIDE FLUSH 0.9% 10 ML SYRINGE IVP PRN (16:36)
[2018-05-03] MEDS: ACETAMINOPHEN 325 MG TABLET PO PRN (17:01)
--- NOTE | 2018-05-03 17:03 | PROVIDER PROGRESS NOTE ---
Assessment/Plan - Problem List (1) Alcohol withdrawal delirium, acute, hyperactive Assessment/Plan: hx of alcoholism last drink on 04/30/18 according to patient Presented with hallucinations and delirium Admitted to ICU JAMAR protocol, JAMAR Chau score up to 11 this am when awake now resting comfortably IV of ativan drip @ 3mg/hr Patient was getting apneic this am so had to reduce ativan from 4mg/hr to 3mg/hr neuro checks ACHS glucose monitor lab, tele, vital monitor CT head negative (2) Acute hyponatremia Conclusion/Plan: pt had home HCTZ, will hold. It may be caused by the medication, alcohol abuse and dehydration IVFs Na now improved from 119 to 132 (3) Visual hallucinations Conclusion/Plan: Secondary to alcohol withdrawal Continues to have hallucinations when alert and awake (4) Hypokalemia Conclusion/Plan: Resolved K now 3.5 (5) Alcohol Abuse Conclusion/Plan: Patient will be counselled once he recovers from withdrawal Social work consult (6) HTN (hypertension) Conclusion/Plan: stable despite alcohol withdrawal Patients BP meds held secondary to patient being sedated Will consider IV meds if needed (7) Dehydration Conclusion/Plan: On IVFs Improving (8) Elevated bilirubin Conclusion/Plan: Improved Likely secondary to alcohol abuse (9) Full code status Conclusion/Plan: pt request full code - Current Meds Current Meds: Current Medications Generic Name Dose Route Start Last Admin Trade Name Freq PRN Reason Stop Dose Admin Multivitamins 10 ml/ Thiamine 1,011.2 mls @ 100 mls/hr 05/02/18 13:00 05/03/18 10:00 HCl 100 mg/ Folic Acid 1 mg/ IV 100 mls/hr Sodium Chloride DAILY SAVANA Infusion Sodium Chloride 1,000 mls @ 100 mls/hr 05/03/18 00:00 05/03/18 09:21 Normal Saline 0.9% IV Infused .Q10H SAVANA Infusion Lorazepam 100 mls @ 5 mls/hr 05/02/18 18:00 05/03/18 08:20 Ativan IV 3 mg/hr .Q20H SAVANA 3 mls/hr Titration Protocol 5 MG/HR Famotidine 50 mls @ 100 mls/hr 05/03/18 09:00 05/03/18 09:41 Pepcid 20 Mg/50 Ml IV Infused BID SAVANA Infusion Lorazepam 1 mg 05/03/18 12:33 05/03/18 16:29 Ativan Inj (Vial) IVP 1 mg Q2H PRN Administration Agitation Polyethylene Glycol 17 gm 05/03/18 09:00 05/03/18 09:23 Miralax PO Not Given DAILY SAVANA Sodium Chloride 10 ml 05/02/18 11:56 05/03/18 16:36 Normal Saline Flush 0.9% IVP 10 ml PRN PRN Administration NEEDED PER PROVIDER ORDERS Sodium Chloride 10 ml 05/02/18 17:00 05/03/18 09:24 Normal Saline Flush 0.9% IVP Not Given 0100,0900,1700 SAVANA - Lab Result Lab results reviewed: Yes Fish Bone Diagrams: 05/03/18 07:13 05/03/18 07:13 - Additional Planning Condition/Complexity: Guarded My Orders: My Active Orders 05/03/18 09:00 Famotidine 20 mg/50 ml [Pepcid 20 mg/50 ml] 50 ml IV BID 05/03/18 12:33 LORazepam INJ [Ativan Inj (Vial)] 1 mg IVP Q2H PRN Plan Discussed with:: Patient Time Spent: 31-60 minutes Subjective - Subjective Patient Reports: Other (Sedated. When aroused he is hallucinating and inco herant.) Nursing Reports: Sedated Objective Vital Signs: Vital Signs - 24 hr 05/02/18 05/02/18 05/02/18 18:37 19:00 19:19 Temperature 37.5 C 37.4 C Heart Rate [ 97 112 H 89 Monitoring electrodes] Respiratory 16 16 17 Rate Blood Pressure 123/91 H 137/109 H 114/93 H [Right Brachial artery] O2 Saturation 97 96 05/02/18 05/02/18 05/02/18 20:08 21:00 22:00 Temperature Heart Rate [ 99 88 88 Monitoring electrodes] Respiratory 15 20 Rate Blood Pressure 88/64 L 127/91 H 138/53 H [Right Brachial artery] O2 Saturation 99 97 05/02/18 05/03/18 05/03/18 23:00 00:00 01:00 Temperature 36.6 C 36.3 C L Heart Rate [ 87 77 76 Monitoring electrodes] Respiratory 14 13 28 H Rate Blood Pressure 126/62 136/66 H 130/78 [Right Brachial artery] O2 Saturation 100 100 99 05/03/18 05/03/18 05/03/18 02:00 03:00 04:00 Temperature 36.1 C L Heart Rate [ 71 68 72 Monitoring electrodes] Respiratory 18 16 13 Rate Blood Pressure 112/90 H 122/78 111/84 H [Right Brachial artery] O2 Saturation 100 100 96 05/03/18 05/03/18 05/03/18 05:00 06:11 07:00 Temperature Heart Rate [ 62 64 70 Monitoring electrodes] Respiratory 18 18 18 Rate Blood Pressure 127/96 H 113/79 117/87 H [Right Brachial artery] O2 Saturation 97 100 100 05/03/18 05/03/18 05/03/18 07:37 08:46 09:00 Temperature 36.4 C L Heart Rate [ 77 60 62 Monitoring electrodes] Respiratory 20 14 14 Rate Blood Pressure 117/85 H 113/68 [Right Brachial artery] O2 Saturation 98 100 100 05/03/18 05/03/18 05/03/18 10:00 11:00 11:52 Temperature 36.9 C Heart Rate [ 52 L 69 71 Monitoring electrodes] Respiratory 14 28 H 15 Rate Blood Pressure 115/80 121/87 H 125/98 H [Right Brachial artery] O2 Saturation 100 100 100 05/03/18 05/03/18 05/03/18 14:34 15:00 16:00 Temperature Heart Rate [ 61 66 50 L Monitoring electrodes] Respiratory 11 L 16 15 Rate Blood Pressure 115/84 H 119/98 H 124/88 H [Right Brachial artery] O2 Saturation 100 100 100 05/03/18 16:53 Temperature 36.4 C L Heart Rate [ Monitoring electrodes] Respiratory Rate Blood Pressure [Right Brachial artery] O2 Saturation Oxygen O2 Source Nasal cannula I&O (Last 24 Hrs): Intake and Output Totals x24h 05/01/18 05/02/18 05/03/18 23:59 23:59 23:59 Intake Total 2212.433 1182.384 Output Total 0 1050 Balance 162.433 132.384 General: Other (Sedated, resting comfortably. When he wakes up still agitated and hallucinating) HEENT: Atraumatic, PERRLA, EOMI, Other (Dry mucus membranes) Neck: Supple, No JVD, No thyromegaly, +2 carotid pulse wo bruit, No LAD Lymphatic: no adenopathy Neuro: Non Focal, CN 2-12 Grossly Intact Cardiovascular: Regular rate, Normal S1, Normal S2 Respiratory: Chest non-tender, No respiratory distress, Breath sounds nml Abdomen: Normal bowel sounds, Soft, No tenderness, No hepatospenomegaly Extremities: No clubbing, No cyanosis, No edema, Normal pulses Skin: No rashes, No breakdown - Results Results: Laboratory Results WBC 8.2 x10^3/uL (4.8-10.8) 05/03/18 07:13 RBC 3.82 10^6/uL (4.70-6.10) L 05/03/18 07:13 Hgb 13.0 g/dL (14.0-18.0) L 05/03/18 07:13 Hct 36.7 % (42.0-52.0) L 05/03/18 07:13 MCV 96.1 fL (80.0-94.0) H 05/03/18 07:13 MCH 34.1 pg (27.0-31.0) H 05/03/18 07:13 MCHC 35.5 g/dL (32.0-36.0) 05/03/18 07:13 RDW 13.2 % (12.0-15.0) 05/03/18 07:13 Plt Count 143 10^3/uL (130-450) 05/03/18 07:13 MPV 7.4 fL (7.4-11.4) 05/03/18 07:13 Neut # (Auto) 5.8 10^3/uL (1.5-6.6) 05/03/18 07:13 Lymph # (Auto) 1.2 10^3/uL (1.5-3.5) L 05/03/18 07:13 [place] # (Auto) 1.0 10^3/uL (0.0-1.0) 05/03/18 07:13 Eos # (Auto) 0.1 10^3/uL (0.0-0.7) 05/03/18 07:13 Baso # (Auto) 0.1 10^3/uL (0.0-0.1) 05/03/18 07:13 Absolute Nucleated RBC 0.01 x10^3/uL 05/03/18 07:13 Nucleated RBC % 0.1 /100WBC 05/03/18 07:13 PT 11.5 secs (9.9-12.6) 05/02/18 09:10 INR 1.0 (0.8-1.2) 05/02/18 09:10 Sodium 132 mmol/L (135-145) L 05/03/18 07:13 Potassium 3.5 mmol/L (3.5-5.0) 05/03/18 07:13 Chloride 102 mmol/L (101-111) 05/03/18 07:13 Carbon Dioxide 25 mmol/L (21-32) 05/03/18 07:13 Anion Gap 5.0 (6-13) L 05/03/18 07:13 BUN 14 mg/dL (6-20) 05/03/18 07:13 Creatinine 0.8 mg/dL (0.6-1.2) 05/03/18 07:13 Estimated GFR (MDRD) 101 (>89) 05/03/18 07:13 Glucose 106 mg/dL (70-100) H 05/03/18 07:13 Calcium 8.4 mg/dL (8.5-10.3) L 05/03/18 07:13 Magnesium 2.3 mg/dL (1.7-2.8) 05/03/18 07:13 Total Bilirubin 1.1 mg/dL (0.2-1.0) H 05/03/18 07:13 AST 32 IU/L (10-42) 05/03/18 07:13 ALT 21 IU/L (10-60) 05/03/18 07:13 Alkaline Phosphatase 48 IU/L (42-121) 05/03/18 07:13 Total Protein 6.5 g/dL (6.7-8.2) L 05/03/18 07:13 Albumin 3.8 g/dL (3.2-5.5) 05/03/18 07:13 Globulin 2.7 g/dL (2.1-4.2) 05/03/18 07:13 Albumin/Globulin Ratio 1.4 (1.0-2.2) 05/03/18 07:13 Lipase 60 U/L (22-51) H 05/02/18 09:10 Urine Color YELLOW 05/02/18 13:45 Urine Clarity CLEAR (CLEAR) 05/02/18 13:45 Urine pH 6.0 PH (5.0-7.5) 05/02/18 13:45 Ur Specific [place] <=1.005 (1.002-1.030) 05/02/18 13:45 Urine Protein NEGATIVE mg/dL (NEGATIVE) 05/02/18 13:45 Urine Glucose (UA) NEGATIVE mg/dL (NEGATIVE) 05/02/18 13:45 Urine Ketones NEGATIVE mg/dL (NEGATIVE) 05/02/18 13:45 Urine Occult Blood NEGATIVE (NEGATIVE) 05/02/18 13:45 Urine Nitrite NEGATIVE (NEGATIVE) 05/02/18 13:45 Urine Bilirubin NEGATIVE (NEGATIVE) 05/02/18 13:45 Urine Urobilinogen 0.2 (NORMAL) E.U./dL (NORMAL) 05/02/18 13:45 Ur Leukocyte Esterase NEGATIVE (NEGATIVE) 05/02/18 13:45 Ur Microscopic Review NOT INDICATED 05/02/18 13:45 Urine Culture Comments NOT INDICATED 05/02/18 13:45 Urine Opiates Screen NEGATIVE (NEGATIVE) 05/02/18 13:45 Ur Oxycodone Screen NEGATIVE (NEGATIVE) 05/02/18 13:45 Urine Methadone Screen NEGATIVE (NEGATIVE) 05/02/18 13:45 Ur Propoxyphene Screen NEGATIVE (NEGATIVE) 05/02/18 13:45 Ur Barbiturates Screen NEGATIVE (NEGATIVE) 05/02/18 13:45 Ur Tricyclics Screen NEGATIVE (NEGATIVE) 05/02/18 13:45 Ur Phencyclidine Scrn NEGATIVE (NEGATIVE) 05/02/18 13:45 Ur Amphetamine Screen NEGATIVE (NEGATIVE) 05/02/18 13:45 U Methamphetamines Scrn NEGATIVE (NEGATIVE) 05/02/18 13:45 U Benzodiazepines Scrn NEGATIVE (NEGATIVE) 05/02/18 13:45 Urine Cocaine Screen NEGATIVE (NEGATIVE) 05/02/18 13:45 U Cannabinoids Screen NEGATIVE (NEGATIVE) 05/02/18 13:45 Ethyl Alcohol < 5.0 mg/dL 05/02/18 09:40 - Procedures Procedures: Procedures ALCOHOL DETOXIFICATION (07/14/13) Sepsis Event Note (H) - Evaluation Current Stage of Sepsis: Ruled out ABX Reporting Has patient been on IV antibiotics over the past 48 hours?: No Current Medications - Current Medications Current Medications: Medications Summary Multivitamins 10 ml/ Thiamine HCl 100 mg/ Folic Acid 1 mg/Sodium Chloride 1,011.2 mls @ 100 mls/hr IV DAILY SAVANA Last Infusion: 05/03/18 10:00 Dose: 100 mls/hr Medication Titration Document 05/03/18 10:00 HS (Rec: 05/03/18 10:33 HS [id number]) Titration Intake Titration Intake 76.667 Cumulative Intake 76.667 Container Volume 934.533 Elapsed Time 10h 17m Titration Dosing IV Rate 100 Increase/Decrease Running Cumulative Dose Not Applicable Total Intake (Rx) 1,087.867 Volume Adjustment/Waste 0 Sodium Chloride (Normal Saline 0.9%) 1,000 mls @ 100 mls/hr IV .Q10H [facility] Last Infusion: 05/03/18 09:21 Dose: 0 mls/hr Medication Titration Document 05/03/18 09:21 HS (Rec: 05/03/18 09:22 HS [id number]) Titration Intake Titration Intake 0 Cumulative Intake 935 Container Volume 0 Elapsed Time 9h 21m Titration Dosing IV Rate 0 Increase/Decrease Infused Cumulative Dose Not Applicable Total Intake (Rx) 935 Volume Adjustment/Waste 65 Lorazepam (Ativan) 100 mls @ 5 mls/hr IV .Q20H SAVANA; Protocol Last Titration: 05/03/18 08:20 Dose: 3 mg/hr, 3 mls/hr Medication Titration Document 05/03/18 08:20 [facility] (Rec: 05/03/18 08:25 [facility] [id number]) Titration Intake Titration Intake 7.6 Cumulative Intake 21.95 Container Volume 78.05 Elapsed Time 13h 2m Titration Dosing Titration Dose 3 IV Rate 3 Increase/Decrease Decreased Cumulative Dose 121.95 Total Intake (Rx) 121.95 Volume Adjustment/Waste 0 Famotidine (Pepcid 20 Mg/50 Ml) 50 mls @ 100 mls/hr IV BID SAVANA Last Infusion: 05/03/18 09:41 Dose: 0 mls/hr Medication Titration Document 05/03/18 09:41 HS (Rec: 05/03/18 10:32 HS [id number]) Titration Intake Titration Intake 50 Cumulative Intake 50 Container Volume 0 Elapsed Time 30m Titration Dosing IV Rate 0 Increase/Decrease Infused Cumulative Dose 20 Total Intake (Rx) 50 Volume Adjustment/Waste 0 Lorazepam (Ativan Inj (Vial)) 1 mg IVP Q2H PRN PRN Reason: Agitation Last Admin: 05/03/18 16:29 Dose: 1 mg CIWA-Ar Score Document 05/03/18 16:29 [facility] (Rec: 05/03/18 16:32 [facility] [id number]) Regimen Current Score 12-15 Polyethylene Glycol (Miralax) 17 gm PO DAILY SAVANA Last Admin: 05/03/18 09:23 Dose: Not Given Non-Admin Reason: Physiologically Contraindicated Sodium Chloride (Normal Saline Flush 0.9%) 10 ml IVP PRN PRN PRN Reason: NEEDED PER PROVIDER ORDERS Last Admin: 05/03/18 16:36 Dose: 10 ml Sodium Chloride (Normal Saline Flush 0.9%) 10 ml IVP 0100,0900,1700 [facility] Last Admin: 05/03/18 09:24 Dose: Not Given Non-Admin Reason: not needed Discontinued Medications Famotidine (Pepcid) 20 mg PO BID [facility] Last Admin: 05/02/18 21:51 Dose: Not Given Non-Admin Reason: Patient Refused Sodium Chloride (Normal Saline 0.9%) 1,000 mls @ 0 mls/hr IV .Q0M ONE Stop: 05/02/18 10:05 Last Infusion: 05/02/18 11:57 Dose: 0 mls/hr Medication Titration Document 05/02/18 11:57 EL (Rec: 05/02/18 11:58 EL [id number]) Titration Intake Titration Intake 1,000 Cumulative Intake 1,000 Container Volume 0 Elapsed Time 1h 23m Titration Dosing IV Rate 0 Increase/Decrease Infused Cumulative Dose Not Applicable Total Intake (Rx) 1,000 Volume Adjustment/Waste 0 Potassium Chloride (Potassium Chloride) 20 meq in 100 mls @ 50 mls/hr IV ONCE ONE Stop: 05/02/18 18:00 Last Infusion: 05/02/18 19:30 Dose: 0 mls/hr Medication Titration Document 05/02/18 19:30 RG (Rec: 05/02/18 22:54 RG [id number]) Titration Intake Titration Intake 100 Cumulative Intake 100 Container Volume 0 Elapsed Time 2h 22m Titration Dosing IV Rate 0 Increase/Decrease Infused Cumulative Dose 0 Total Intake (Rx) 100 Volume Adjustment/Waste 0 Sodium Chloride (Normal Saline 0.9%) Confirm Administered Dose 1,000 mls @ as directed IV .STK-MED ONE Stop: 05/02/18 18:59 Last Admin: 05/02/18 19:43 Dose: 20 mls/hr Medication Titration Document 05/02/18 19:43 RG (Rec: 05/02/18 19:43 RG [id number]) Titration Intake Container Volume 1,000 Elapsed Time 0m Titration Dosing IV Rate 20 Increase/Decrease Started Cumulative Dose Not Applicable Volume Adjustment/Waste 0 Lorazepam (Ativan) 2 mg PO ONCE STA Stop: 05/02/18 09:04 Last Admin: 05/02/18 09:14 Dose: 2 mg Lorazepam (Ativan Inj (Vial)) 2 mg IVP Q30M PRN; Protocol PRN Reason: CIWA >8 Last Admin: 05/02/18 16:29 Dose: 2 mg CIWA-Ar Score Document 05/02/18 16:29 [facility] (Rec: 05/02/18 16:29 [facility] [id number]) Regimen Current Score 12-15 Re-Assess: General PRN Medication Reasses Document 05/02/18 16:59 [facility] (Rec: 05/02/18 18:50 [facility] [id number]) Reassessment Effective/Ineffective Ineffective Potassium Chloride (K-Dur) 40 meq PO ONCE ONE Stop: 05/02/18 16:01 Last Admin: 05/02/18 16:30 Dose: 40 meq Propranolol HCl (Inderal) 20 mg PO TID [facility] Last Admin: 05/03/18 06:39 Dose: 20 mg
[2018-05-03] MEDS: SODIUM CHLORIDE 0.9% 1,000 ML IV SCH ×2 (19:40→21:33)
[2018-05-04] MEDS: SODIUM CHLORIDE FLUSH 0.9% 10 ML SYRINGE IVP SCH ×3 (03:07→19:01)
[2018-05-04 05:09] LABS: BASOPHILS % (AUTO) 0.6 %; EOSINOPHILS # (AUTO) 0.2 10^3/uL (0.0-0.7); EOSINOPHILS % (AUTO) 2.2 %; HGB - HEMOGLOBIN 11.9 g/dL (14.0-18.0); LYMPHOCYTES # (AUTO) 1.4 10^3/uL (1.5-3.5); LYMPHOCYTES % (AUTO) 20.5 %; MEAN CORPUSCULAR HEMOGLOBIN 33.9 pg (27.0-31.0); MEAN CORPUSCULAR HGB CONC 34.1 g/dL (32.0-36.0); MEAN CORPUSCULAR VOLUME 99.3 fL (80.0-94.0); MEAN PLATELET VOLUME 7.7 fL (7.4-11.4); MONOCYTES # (AUTO) 0.8 10^3/uL (0.0-1.0); MONOCYTES % (AUTO) 11.7 %; NEUTROPHILS # (AUTO) 4.6 10^3/uL (1.5-6.6); PLT - PLATELET COUNT 153 10^3/uL (130-450); RED BLOOD COUNT 3.52 10^6/uL (4.70-6.10); RED CELL DISTRIBUTION WIDTH 13.4 % (12.0-15.0); WHITE BLOOD COUNT 7.1 x10^3/uL (4.8-10.8)
[2018-05-04] MEDS: LORazepam 100MG/100ML 100 ML IV SCH (05:15)
[2018-05-04 05:23] LABS: ALBUMIN 3.5 g/dL (3.2-5.5); ALBUMIN/GLOBULIN RATIO 1.5 (1.0-2.2); BILIRUBIN,TOTAL 0.8 mg/dL (0.2-1.0); CALCIUM 8.3 mg/dL (8.5-10.3); CREATININE 0.7 mg/dL (0.6-1.2); TOTAL PROTEIN 5.8 g/dL (6.7-8.2)
[2018-05-04] MEDS: SODIUM CHLORIDE 0.9% 1,000 ML IV SCH (06:22)
[2018-05-04] MEDS: ACETAMINOPHEN 325 MG TABLET PO PRN ×3 (08:01→17:20)
[2018-05-04] MEDS: FAMOTIDINE 20 MG/50 ML 50 ML IV SCH ×2 (10:07→22:55)
[2018-05-04] MEDS: POLYETHYLENE GLYCOL 3350 17 GM PACKET PO SCH (10:18)
[2018-05-04] MEDS: MULTIVITAMIN 10 ML, THIAMINE INJ 100 MG, FOLIC ACID INJ 1 MG in SODIUM CHLORIDE 0.9% 1,... IV SCH (10:18)
--- NOTE | 2018-05-04 10:33 | PROVIDER PROGRESS NOTE ---
Assessment/Plan - Problem List (1) Alcohol withdrawal delirium, acute, hyperactive Assessment/Plan: hx of alcoholism last drink on 04/30/18 according to patient Presented with hallucinations and delirium Admitted to ICU CIWA protocol, Banana bag Patient was very agitated overnight Ativan drip was increased to @ 5mg/hr Patient is more alert and cooperative this am still confused but seems comfortable Will wean drip and see if patient can tolerate CT head negative (2) Acute hyponatremia Conclusion/Plan: Pt had home HCTZ, will hold. It may have been caused by the medication, alcohol abuse and dehydration Resolved (3) Visual hallucinations Conclusion/Plan: Secondary to alcohol withdrawal Improving (4) Hypokalemia Conclusion/Plan: Resolved K now 3.7 (5) Alcohol Abuse Conclusion/Plan: Patient will be counselled once he recovers from withdrawal Social work consulted (6) HTN (hypertension) Conclusion/Plan: stable despite alcohol withdrawal Patients BP meds held for now Will consider restarting if BP goes up (7) Dehydration Conclusion/Plan: On IVFs Improving (8) Elevated bilirubin Conclusion/Plan: Resolved Likely secondary to alcohol abuse - Current Meds Current Meds: Current Medications Generic Name Dose Route Start Last Admin Trade Name Freq PRN Reason Stop Dose Admin Acetaminophen 650 mg 05/02/18 11:56 05/04/18 08:01 Tylenol PO 650 mg Q4HR PRN Administration Pain 1 to 4 Multivitamins 10 ml/ Thiamine 1,011.2 mls @ 100 mls/hr 05/02/18 13:00 05/03/18 19:45 HCl 100 mg/ Folic Acid 1 mg/ IV Infused Sodium Chloride DAILY SAVANA Infusion Sodium Chloride 1,000 mls @ 100 mls/hr 05/03/18 00:00 05/04/18 08:08 Normal Saline 0.9% IV 100 mls/hr .Q10H SAVNAA Infusion Lorazepam 100 mls @ 5 mls/hr 05/02/18 18:00 05/04/18 08:08 Ativan IV 5 mg/hr .Q20H SAVANA 5 mls/hr Titration Protocol 5 MG/HR Famotidine 50 mls @ 100 mls/hr 05/03/18 09:00 05/03/18 22:05 Pepcid 20 Mg/50 Ml IV Infused BID SAVANA Infusion Lorazepam 1 mg 05/03/18 12:33 05/03/18 20:03 Ativan Inj (Vial) IVP 1 mg Q2H PRN Administration Agitation Polyethylene Glycol 17 gm 05/03/18 09:00 05/03/18 09:23 Miralax PO Not Given DAILY SAVANA Sodium Chloride 10 ml 05/02/18 11:56 05/03/18 16:36 Normal Saline Flush 0.9% IVP 10 ml PRN PRN Administration NEEDED PER PROVIDER ORDERS Sodium Chloride 10 ml 05/02/18 17:00 05/04/18 03:07 Normal Saline Flush 0.9% IVP Not Given 0100,0900,1700 SAVANA - Lab Result Lab results reviewed: Yes Fish Bone Diagrams: 05/04/18 04:20 05/04/18 04:20 - Diagnostic Imaging Results Diagnostic Imaging Results: Final report reviewed - Additional Planning Condition/Complexity: Guarded My Orders: My Active Orders 05/03/18 12:33 LORazepam INJ [Ativan Inj (Vial)] 1 mg IVP Q2H PRN Consult/Specialty: Other (Social Work) Plan Discussed with:: Patient Time Spent: 31-60 minutes Subjective - Subjective Patient Reports: Resting Comfortably, Other (Confused but alert and more oriented then yesterday. Denies any shaking or hallucinations this morning. Eating, denies any pain.) Nursing Reports: Confused Objective Vital Signs: Vital Signs - 24 hr 05/03/18 05/03/18 05/03/18 11:00 11:52 14:34 Temperature 36.9 C Heart Rate [ 69 71 61 Monitoring electrodes] Respiratory 28 H 15 11 L Rate Blood Pressure 121/87 H 125/98 H 115/84 H [Right Brachial artery] O2 Saturation 100 100 100 05/03/18 05/03/18 05/03/18 15:00 16:00 16:53 Temperature 36.4 C L Heart Rate [ 66 50 L Monitoring electrodes] Respiratory 16 15 Rate Blood Pressure 119/98 H 124/88 H [Right Brachial artery] O2 Saturation 100 100 05/03/18 05/03/18 05/03/18 17:00 18:00 19:00 Temperature Heart Rate [ 73 99 93 Monitoring electrodes] Respiratory 22 24 25 H Rate Blood Pressure 111/62 129/108 H 101/70 [Right Brachial artery] O2 Saturation 100 100 05/03/18 05/03/18 05/03/18 20:00 21:00 22:00 Temperature Heart Rate [ 75 89 66 Monitoring electrodes] Respiratory 17 29 H 13 Rate Blood Pressure 108/83 H 121/83 H 106/74 [Right Brachial artery] O2 Saturation 96 99 97 05/03/18 05/04/18 05/04/18 23:00 00:00 01:00 Temperature 36.6 C Heart Rate [ 57 L 56 L 51 L Monitoring electrodes] Respiratory 13 14 15 Rate Blood Pressure 118/79 116/84 H 135/86 H [Right Brachial artery] O2 Saturation 97 98 99 05/04/18 05/04/18 05/04/18 02:00 03:00 04:00 Temperature 36.8 C Heart Rate [ 55 L 85 71 Monitoring electrodes] Respiratory 17 24 13 Rate Blood Pressure 127/93 H 133/96 H 150/111 H [Right Brachial artery] O2 Saturation 99 99 99 05/04/18 05/04/18 05/04/18 05:00 06:00 07:00 Temperature 36.9 C Heart Rate [ 47 L 47 L 52 L Monitoring electrodes] Respiratory 11 L 13 18 Rate Blood Pressure 138/97 H 122/94 H 125/90 H [Right Brachial artery] O2 Saturation 98 99 99 05/04/18 05/04/18 05/04/18 08:00 08:44 09:06 Temperature 36.9 C Heart Rate [ 82 98 90 Monitoring electrodes] Respiratory 15 17 20 Rate Blood Pressure 125/94 H 125/94 H 128/100 H [Right Brachial artery] O2 Saturation 99 97 99 Oxygen O2 Source Room air I&O (Last 24 Hrs): Intake and Output Totals x24h 05/02/18 05/03/18 05/04/18 23:59 23:59 23:59 Intake Total 2212.433 2612.117 1423.934 Output Total 2050 1350 300 Balance 361.445 1824.117 1123.934 General: Alert, Cooperative, Other (Confused, oriented x 2) HEENT: Atraumatic, PERRLA, EOMI, Other (Dry mucus membranes) Neck: Supple, No JVD, No thyromegaly, +2 carotid pulse wo bruit, No LAD Lymphatic: no adenopathy Neuro: Alert, Non Focal, CN 2-12 Grossly Intact, Other (Oriented x 2) Cardiovascular: Regular rate, Normal S1, Normal S2, No murmurs Respiratory: Chest non-tender, No respiratory distress, Breath sounds nml Abdomen: Normal bowel sounds, Soft, No tenderness, No hepatospenomegaly Extremities: No clubbing, No cyanosis, No edema, Normal pulses Skin: No rashes, No breakdown - Results Results: Laboratory Results WBC 7.1 x10^3/uL (4.8-10.8) 05/04/18 04:20 RBC 3.52 10^6/uL (4.70-6.10) L 05/04/18 04:20 Hgb 11.9 g/dL (14.0-18.0) L 05/04/18 04:20 Hct 34.9 % (42.0-52.0) L 05/04/18 04:20 MCV 99.3 fL (80.0-94.0) H 05/04/18 04:20 MCH 33.9 pg (27.0-31.0) H 05/04/18 04:20 MCHC 34.1 g/dL (32.0-36.0) 05/04/18 04:20 RDW 13.4 % (12.0-15.0) 05/04/18 04:20 Plt Count 153 10^3/uL (130-450) 05/04/18 04:20 MPV 7.7 fL (7.4-11.4) 05/04/18 04:20 Neut # (Auto) 4.6 10^3/uL (1.5-6.6) 05/04/18 04:20 Lymph # (Auto) 1.4 10^3/uL (1.5-3.5) L 05/04/18 04:20 [place] # (Auto) 0.8 10^3/uL (0.0-1.0) 05/04/18 04:20 Eos # (Auto) 0.2 10^3/uL (0.0-0.7) 05/04/18 04:20 Baso # (Auto) 0.0 10^3/uL (0.0-0.1) 05/04/18 04:20 Absolute Nucleated RBC 0.00 x10^3/uL 05/04/18 04:20 Nucleated RBC % 0.0 /100WBC 05/04/18 04:20 PT 11.5 secs (9.9-12.6) 05/02/18 09:10 INR 1.0 (0.8-1.2) 05/02/18 09:10 Sodium 136 mmol/L (135-145) 05/04/18 04:20 Potassium 3.7 mmol/L (3.5-5.0) 05/04/18 04:20 Chloride 104 mmol/L (101-111) 05/04/18 04:20 Carbon Dioxide 25 mmol/L (21-32) 05/04/18 04:20 Anion Gap 7.0 (6-13) 05/04/18 04:20 BUN 9 mg/dL (6-20) 05/04/18 04:20 Creatinine 0.7 mg/dL (0.6-1.2) 05/04/18 04:20 Estimated GFR (MDRD) 118 (>89) 05/04/18 04:20 Glucose 119 mg/dL (70-100) H 05/04/18 04:20 Calcium 8.3 mg/dL (8.5-10.3) L 05/04/18 04:20 Magnesium 2.3 mg/dL (1.7-2.8) 05/03/18 07:13 Total Bilirubin 0.8 mg/dL (0.2-1.0) 05/04/18 04:20 AST 26 IU/L (10-42) 05/04/18 04:20 ALT 18 IU/L (10-60) 05/04/18 04:20 Alkaline Phosphatase 43 IU/L (42-121) 05/04/18 04:20 Total Protein 5.8 g/dL (6.7-8.2) L 05/04/18 04:20 Albumin 3.5 g/dL (3.2-5.5) 05/04/18 04:20 Globulin 2.3 g/dL (2.1-4.2) 05/04/18 04:20 Albumin/Globulin Ratio 1.5 (1.0-2.2) 05/04/18 04:20 Lipase 60 U/L (22-51) H 05/02/18 09:10 Urine Color YELLOW 05/02/18 13:45 Urine Clarity CLEAR (CLEAR) 05/02/18 13:45 Urine pH 6.0 PH (5.0-7.5) 05/02/18 13:45 Ur Specific [place] <=1.005 (1.002-1.030) 05/02/18 13:45 Urine Protein NEGATIVE mg/dL (NEGATIVE) 05/02/18 13:45 Urine Glucose (UA) NEGATIVE mg/dL (NEGATIVE) 05/02/18 13:45 Urine Ketones NEGATIVE mg/dL (NEGATIVE) 05/02/18 13:45 Urine Occult Blood NEGATIVE (NEGATIVE) 05/02/18 13:45 Urine Nitrite NEGATIVE (NEGATIVE) 05/02/18 13:45 Urine Bilirubin NEGATIVE (NEGATIVE) 05/02/18 13:45 Urine Urobilinogen 0.2 (NORMAL) E.U./dL (NORMAL) 05/02/18 13:45 Ur Leukocyte Esterase NEGATIVE (NEGATIVE) 05/02/18 13:45 Ur Microscopic Review NOT INDICATED 05/02/18 13:45 Urine Culture Comments NOT INDICATED 05/02/18 13:45 Urine Opiates Screen NEGATIVE (NEGATIVE) 05/02/18 13:45 Ur Oxycodone Screen NEGATIVE (NEGATIVE) 05/02/18 13:45 Urine Methadone Screen NEGATIVE (NEGATIVE) 05/02/18 13:45 Ur Propoxyphene Screen NEGATIVE (NEGATIVE) 05/02/18 13:45 Ur Barbiturates Screen NEGATIVE (NEGATIVE) 05/02/18 13:45 Ur Tricyclics Screen NEGATIVE (NEGATIVE) 05/02/18 13:45 Ur Phencyclidine Scrn NEGATIVE (NEGATIVE) 05/02/18 13:45 Ur Amphetamine Screen NEGATIVE (NEGATIVE) 05/02/18 13:45 U Methamphetamines Scrn NEGATIVE (NEGATIVE) 05/02/18 13:45 U Benzodiazepines Scrn NEGATIVE (NEGATIVE) 05/02/18 13:45 Urine Cocaine Screen NEGATIVE (NEGATIVE) 05/02/18 13:45 U Cannabinoids Screen NEGATIVE (NEGATIVE) 05/02/18 13:45 Ethyl Alcohol < 5.0 mg/dL 05/02/18 09:40 - Procedures Procedures: Procedures ALCOHOL DETOXIFICATION (07/14/13) Sepsis Event Note (H) - Evaluation Current Stage of Sepsis: Ruled out ABX Reporting Has patient been on IV antibiotics over the past 48 hours?: No Current Medications - Current Medications Current Medications: Active Medications Generic Name Dose Route Start Last Admin Trade Name Freq PRN Reason Stop Dose Admin Acetaminophen 650 mg 05/02/18 11:56 05/04/18 08:01 Tylenol PO 650 mg Q4HR PRN Administration Pain 1 to 4 Multivitamins 10 ml/ Thiamine 1,011.2 mls @ 100 mls/hr 05/02/18 13:00 05/04/18 10:18 HCl 100 mg/ Folic Acid 1 mg/ IV 100 mls/hr Sodium Chloride DAILY SAVANA Administration Sodium Chloride 1,000 mls @ 100 mls/hr 05/03/18 00:00 05/04/18 10:19 Normal Saline 0.9% IV Infused .Q10H SAVANA Infusion Lorazepam 100 mls @ 5 mls/hr 05/02/18 18:00 05/04/18 08:08 Ativan IV 5 mg/hr .Q20H SAVANA 5 mls/hr Titration Protocol 5 MG/HR Famotidine 50 mls @ 100 mls/hr 05/03/18 09:00 05/04/18 10:07 Pepcid 20 Mg/50 Ml IV 100 mls/hr BID SAVANA Administration Lorazepam 1 mg 05/03/18 12:33 05/03/18 20:03 Ativan Inj (Vial) IVP 1 mg Q2H PRN Administration Agitation Ondansetron HCl 4 mg 05/02/18 11:56 Zofran Inj IVP Q6HR PRN Nausea / Vomiting Polyethylene Glycol 17 gm 05/03/18 09:00 05/04/18 10:18 Miralax PO Not Given DAILY SAVANA Sodium Chloride 10 ml 05/02/18 11:56 05/03/18 16:36 Normal Saline Flush 0.9% IVP 10 ml PRN PRN Administration NEEDED PER PROVIDER ORDERS Sodium Chloride 10 ml 05/02/18 17:00 05/04/18 10:21 Normal Saline Flush 0.9% IVP Not Given 0100,0900,1700 SAVANA Gabapentin 600 mg PO TID 07/13/16 Lisinopril 40 mg PO DAILY 05/02/18 Propranolol HCl 20 mg PO TID 05/02/18 hydroCHLOROthiazide [Hydrochlorothiazide] 25 mg PO DAILY 05/02/18
[2018-05-04] MEDS: LORazepam 2 MG/ML VIAL IVP PRN ×3 (16:06→21:51)
[2018-05-04] MEDS: SODIUM CHLORIDE FLUSH 0.9% 10 ML SYRINGE IVP PRN ×2 (16:07→19:18)
[2018-05-04] MEDS: NS W/20 MEQ KCL 1,000 ML IV SCH (22:43)
[2018-05-04] MEDS: DEXMEDETOMIDINE 400 MCG/100 ML 100 ML IV PRN ×2 (22:43→22:47)
[2018-05-05] MEDS: SODIUM CHLORIDE FLUSH 0.9% 10 ML SYRINGE IVP SCH ×4 (01:43→23:47)
[2018-05-05] MEDS: LORazepam 2 MG/ML VIAL IVP PRN ×2 (04:35→21:55)
[2018-05-05 04:41] LABS: BASOPHILS # (AUTO) 0.1 10^3/uL (0.0-0.1); BASOPHILS % (AUTO) 0.8 %; EOSINOPHILS # (AUTO) 0.2 10^3/uL (0.0-0.7); EOSINOPHILS % (AUTO) 2.5 %; HGB - HEMOGLOBIN 11.7 g/dL (14.0-18.0); LYMPHOCYTES # (AUTO) 1.9 10^3/uL (1.5-3.5); LYMPHOCYTES % (AUTO) 27.9 %; MEAN CORPUSCULAR HEMOGLOBIN 33.8 pg (27.0-31.0); MEAN CORPUSCULAR HGB CONC 34.2 g/dL (32.0-36.0); MEAN CORPUSCULAR VOLUME 98.6 fL (80.0-94.0); MEAN PLATELET VOLUME 7.5 fL (7.4-11.4); MONOCYTES # (AUTO) 0.7 10^3/uL (0.0-1.0); MONOCYTES % (AUTO) 10.2 %; NEUTROPHILS % (AUTO) 58.6 %; PLT - PLATELET COUNT 158 10^3/uL (130-450); RED BLOOD COUNT 3.45 10^6/uL (4.70-6.10); RED CELL DISTRIBUTION WIDTH 13.3 % (12.0-15.0); WHITE BLOOD COUNT 6.8 x10^3/uL (4.8-10.8)
[2018-05-05 04:48] LABS: ALBUMIN 3.3 g/dL (3.2-5.5); ALBUMIN/GLOBULIN RATIO 1.1 (1.0-2.2); BILIRUBIN,TOTAL 0.7 mg/dL (0.2-1.0); CALCIUM 8.4 mg/dL (8.5-10.3); CREATININE 0.7 mg/dL (0.6-1.2); TOTAL PROTEIN 6.3 g/dL (6.7-8.2)
[2018-05-05] MEDS ORDERED: WATER FOR INJECTION,STERILE 10 ML ONE ×2 (05:06→10:51)
[2018-05-05] MEDS: ZIPRASIDONE 20 MG VIAL IM PRN ×2 (05:10→10:56)
[2018-05-05] MEDS: NS W/20 MEQ KCL 1,000 ML IV SCH ×3 (08:50→19:49)
[2018-05-05] MEDS: FAMOTIDINE 20 MG/50 ML 50 ML IV SCH ×2 (09:08→20:49)
[2018-05-05] MEDS: ENOXAPARIN 40 MG/0.4 ML SYRINGE SUBQ SCH (09:09)
[2018-05-05] MEDS: DEXMEDETOMIDINE 400 MCG/100 ML 100 ML IV PRN (09:31)
[2018-05-05] MEDS: PRENATAL VITAMIN TABLET PO SCH (11:30)
[2018-05-05] MEDS: POLYETHYLENE GLYCOL 3350 17 GM PACKET PO SCH (11:30)
[2018-05-05] MEDS: THIAMINE 100 MG TABLET PO SCH (11:30)
[2018-05-05] MEDS ORDERED: SODIUM CHLORIDE 0.9% 1,000 ML IV ONE ×2 (14:33→14:54)
[2018-05-05] MEDS ORDERED: LORazepam 100MG/100ML 100 ML IV SCH (15:15)
[2018-05-05] MEDS ORDERED: hydrALAZINE INJ 20 MG/ML VIAL IVP PRN (16:45)
--- NOTE | 2018-05-05 16:46 | PROVIDER PROGRESS NOTE ---
Assessment/Plan - Problem List (1) Alcohol withdrawal delirium, acute, hyperactive Assessment/Plan: hx of alcoholism last drink on 04/30/18 according to patient Presented with hallucinations and delirium Admitted to ICU Was on an ativan drip but was on max dose last night very combative and delirious therefore given Giodon and switched to precedex drip Today on precedex drip patient became very bradycardic down to the 30s therefore it was stopped and patient placed back on ativan drip and librium ATC Patient is currently well sedated and seems to be comfortable but continues to be very combative and delirious when he is awake Will wean drip and see if patient can tolerate CT head negative (2) Bradycardia Conclusion/Plan: Patient had bradycardia with HR in the 30s today Secondary to precedex EKG showed sinus eve with prolonged QT Precedex stopped Monitor closely on tele BP stable (3) Acute hyponatremia Conclusion/Plan: Pt had home HCTZ, will hold. It may have been caused by the medication, alcohol abuse and dehydration Resolved (4) Visual hallucinations Conclusion/Plan: Secondary to alcohol withdrawal Improving (5) Hypokalemia Conclusion/Plan: Resolved K now 4.1 (6) Alcohol Abuse Conclusion/Plan: Patient will be counselled once he recovers from withdrawal Social work consulted (7) HTN (hypertension) Conclusion/Plan: BP has been trending up since last night likely secondary to withdrawal Start prn hydralazine IV Once patient more alert will restart PO meds (8) Dehydration Conclusion/Plan: Resolved (9) Elevated bilirubin Conclusion/Plan: Resolved Likely secondary to alcohol abuse - Current Meds Current Meds: Current Medications Generic Name Dose Route Start Last Admin Trade Name Freq PRN Reason Stop Dose Admin Acetaminophen 650 mg 05/02/18 11:56 05/04/18 17:20 Tylenol PO 650 mg Q4HR PRN Administration Pain 1 to 4 Enoxaparin Sodium 40 mg 05/05/18 09:00 05/05/18 09:09 Lovenox SUBQ 40 mg DAILY SAVANA Administration Famotidine 50 mls @ 100 mls/hr 05/03/18 09:00 05/05/18 09:30 Pepcid 20 Mg/50 Ml IV Infused BID SAVANA Infusion Potassium Chloride/Sodium Chloride 1,000 mls @ 125 mls/hr 05/04/18 23:00 05/05/18 15:00 Normal Saline 0.9% W/20 Meq Kcl IV 125 mls/hr .Q8H SAVANA Infusion Lorazepam 100 mls @ 5 mls/hr 05/05/18 15:15 05/05/18 16:00 Ativan IV 5 mg/hr .Q20H SAVNAA 5 mls/hr Administration Protocol 5 MG/HR Lorazepam 1 mg 05/03/18 12:33 05/05/18 04:35 Ativan Inj (Vial) IVP 1 mg Q2H PRN Administration Agitation Polyethylene Glycol 17 gm 05/03/18 09:00 05/05/18 11:30 Miralax PO Not Given DAILY SAVANA Multivit/Folic Acid/Iron 1 tab 05/05/18 09:00 05/05/18 11:30 Trinatal Rx 1 PO Not Given DAILY SAVANA Sodium Chloride 10 ml 05/02/18 11:56 05/04/18 19:18 Normal Saline Flush 0.9% IVP 10 ml PRN PRN Administration NEEDED PER PROVIDER ORDERS Sodium Chloride 10 ml 05/02/18 17:00 05/05/18 09:12 Normal Saline Flush 0.9% IVP 10 ml 0100,0900,1700 SAVANA Administration Thiamine HCl 100 mg 05/05/18 09:00 05/05/18 11:30 Vitamin B-1 PO Not Given DAILY SAVANA Ziprasidone 10 mg 05/05/18 04:48 05/05/18 10:56 Geodon Im IM 10 mg Q6H PRN Administration Agitation - Lab Result Lab results reviewed: Yes Fish Bone Diagrams: 05/05/18 04:05 05/05/18 04:05 - EKG Results EKG Interpreted Independently: Yes EKG Findings: Sinus bradycardia - Diagnostic Imaging Results Diagnostic Imaging Results: Final report reviewed - Additional Planning Condition/Complexity: Critical My Orders: My Active Orders 05/04/18 18:58 1:1 Observation [RC] once 05/05/18 09:00 Enoxaparin [Lovenox] 40 mg SUBQ DAILY Vitamin [Trinatal Rx 1] 1 tab PO DAILY Thiamine [Vitamin B-1] 100 mg PO DAILY 05/05/18 15:15 LORazepam 100MG/100ML [Ativan] 100 ml IV 5 mg/hr 05/05/18 18:00 chlordiazePOXIDE [Librium] 25 mg PO Q6HR Plan Discussed with:: Patient Time Spent: Greater than 60 minutes Subjective - Subjective Patient Reports: Other (Patient agitated and delirious this am. He is now re sting comfortably as he is sedated. Patient continues to want to leave and has been aggresive towards the nursing staff. He does get loud and beligerant at times.) Nursing Reports: No Complaints Objective Vital Signs: Vital Signs - 24 hr 05/04/18 05/04/18 05/04/18 17:00 17:57 18:00 Temperature 37.2 C Heart Rate 99 Heart Rate [ 106 H 73 Monitoring electrodes] Respiratory 22 17 26 H Rate Blood Pressure 112/70 87/54 L [Right Brachial artery] O2 Saturation 100 05/04/18 05/04/18 05/04/18 19:00 20:00 20:26 Temperature 36.7 C Heart Rate Heart Rate [ 63 104 H 68 Monitoring electrodes] Respiratory 22 20 14 Rate Blood Pressure 102/57 L 131/103 H 137/97 H [Right Brachial artery] O2 Saturation 05/04/18 05/04/18 05/04/18 21:00 22:00 23:00 Temperature Heart Rate Heart Rate [ 69 57 L 62 Monitoring electrodes] Respiratory 19 19 19 Rate Blood Pressure 129/96 H 152/106 H 135/101 H [Right Brachial artery] O2 Saturation 97 05/05/18 05/05/18 05/05/18 00:00 01:00 02:00 Temperature 36.7 C Heart Rate Heart Rate [ 60 54 L 48 L Monitoring electrodes] Respiratory 13 11 L 11 L Rate Blood Pressure 144/100 H 148/97 H 142/106 H [Right Brachial artery] O2 Saturation 97 97 97 05/05/18 05/05/18 05/05/18 03:00 04:00 05:00 Temperature Heart Rate Heart Rate [ 50 L 47 L 46 L Monitoring electrodes] Respiratory 10 L 11 L 13 Rate Blood Pressure 146/101 H 150/104 H 124/79 [Right Brachial artery] O2 Saturation 97 97 97 05/05/18 05/05/18 05/05/18 06:00 07:00 08:00 Temperature Heart Rate Heart Rate [ 45 L 43 L 48 L Monitoring electrodes] Respiratory 13 11 L 14 Rate Blood Pressure 138/86 H 114/54 L 166/105 H [Right Brachial artery] O2 Saturation 98 98 97 05/05/18 05/05/18 05/05/18 09:00 10:00 11:00 Temperature 37.0 C Heart Rate Heart Rate [ 65 68 61 Monitoring electrodes] Respiratory 13 15 14 Rate Blood Pressure 177/124 H 162/149 H 174/111 H [Right Brachial artery] O2 Saturation 98 100 98 05/05/18 05/05/18 05/05/18 12:00 12:02 12:05 Temperature Heart Rate Heart Rate [ 44 L 36 L 53 L Monitoring electrodes] Respiratory 9 L Rate Blood Pressure 151/105 H 148/102 H 168/119 H [Right Brachial artery] O2 Saturation 98 05/05/18 05/05/18 05/05/18 12:08 13:03 14:00 Temperature Heart Rate Heart Rate [ 35 L 41 L 35 L Monitoring electrodes] Respiratory 13 11 L Rate Blood Pressure 157/103 H 170/104 H 170/99 H [Right Brachial artery] O2 Saturation 99 99 05/05/18 05/05/18 05/05/18 14:02 15:00 16:00 Temperature Heart Rate Heart Rate [ 42 L 36 L 36 L Monitoring electrodes] Respiratory 13 18 9 L Rate Blood Pressure 146/107 H 168/106 H 167/101 H [Right Brachial artery] O2 Saturation 99 100 Oxygen O2 Source Room air I&O (Last 24 Hrs): Intake and Output Totals x24h 05/03/18 05/04/18 05/05/18 23:59 23:59 23:59 Intake Total 2612.117 5504.467 2904.667 Output Total 1350 2625 1650 Balance 1002.256 8917.467 1254.667 General: Moderate distress (Agrivated and delirious), Other (Combative.) HEENT: Atraumatic, PERRLA, EOMI, Mucous membr. moist/pink, Other (Diaphoretic) Neck: Supple, No JVD, No thyromegaly, +2 carotid pulse wo bruit, No LAD Lymphatic: no adenopathy Neuro: Disoriented, Non Focal, CN 2-12 Grossly Intact Cardiovascular: Normal S1, Normal S2, Other (Bradycardic) Respiratory: Chest non-tender, No respiratory distress, Breath sounds nml Abdomen: Normal bowel sounds, Soft, No tenderness, No hepatospenomegaly Extremities: No clubbing, No cyanosis, No edema, Normal pulses Skin: No rashes, No breakdown - Results Results: Laboratory Results WBC 6.8 x10^3/uL (4.8-10.8) 05/05/18 04:05 RBC 3.45 10^6/uL (4.70-6.10) L 05/05/18 04:05 Hgb 11.7 g/dL (14.0-18.0) L 05/05/18 04:05 Hct 34.0 % (42.0-52.0) L 05/05/18 04:05 MCV 98.6 fL (80.0-94.0) H 05/05/18 04:05 MCH 33.8 pg (27.0-31.0) H 05/05/18 04:05 MCHC 34.2 g/dL (32.0-36.0) 05/05/18 04:05 RDW 13.3 % (12.0-15.0) 05/05/18 04:05 Plt Count 158 10^3/uL (130-450) 05/05/18 04:05 MPV 7.5 fL (7.4-11.4) 05/05/18 04:05 Neut # (Auto) 4.0 10^3/uL (1.5-6.6) 05/05/18 04:05 Lymph # (Auto) 1.9 10^3/uL (1.5-3.5) 05/05/18 04:05 [place] # (Auto) 0.7 10^3/uL (0.0-1.0) 05/05/18 04:05 Eos # (Auto) 0.2 10^3/uL (0.0-0.7) 05/05/18 04:05 Baso # (Auto) 0.1 10^3/uL (0.0-0.1) 05/05/18 04:05 Absolute Nucleated RBC 0.00 x10^3/uL 05/05/18 04:05 Nucleated RBC % 0.0 /100WBC 05/05/18 04:05 PT 11.5 secs (9.9-12.6) 05/02/18 09:10 INR 1.0 (0.8-1.2) 05/02/18 09:10 Sodium 140 mmol/L (135-145) 05/05/18 04:05 Potassium 4.1 mmol/L (3.5-5.0) 05/05/18 04:05 Chloride 109 mmol/L (101-111) 05/05/18 04:05 Carbon Dioxide 24 mmol/L (21-32) 05/05/18 04:05 Anion Gap 7.0 (6-13) 05/05/18 04:05 BUN 7 mg/dL (6-20) 05/05/18 04:05 Creatinine 0.7 mg/dL (0.6-1.2) 05/05/18 04:05 Estimated GFR (MDRD) 118 (>89) 05/05/18 04:05 Glucose 115 mg/dL (70-100) H 05/05/18 04:05 Calcium 8.4 mg/dL (8.5-10.3) L 05/05/18 04:05 Magnesium 2.3 mg/dL (1.7-2.8) 05/03/18 07:13 Total Bilirubin 0.7 mg/dL (0.2-1.0) 05/05/18 04:05 AST 22 IU/L (10-42) 05/05/18 04:05 ALT 18 IU/L (10-60) 05/05/18 04:05 Alkaline Phosphatase 42 IU/L (42-121) 05/05/18 04:05 Total Protein 6.3 g/dL (6.7-8.2) L 05/05/18 04:05 Albumin 3.3 g/dL (3.2-5.5) 05/05/18 04:05 Globulin 3.0 g/dL (2.1-4.2) 05/05/18 04:05 Albumin/Globulin Ratio 1.1 (1.0-2.2) 05/05/18 04:05 Lipase 60 U/L (22-51) H 05/02/18 09:10 Urine Color YELLOW 05/02/18 13:45 Urine Clarity CLEAR (CLEAR) 05/02/18 13:45 Urine pH 6.0 PH (5.0-7.5) 05/02/18 13:45 Ur Specific [place] <=1.005 (1.002-1.030) 05/02/18 13:45 Urine Protein NEGATIVE mg/dL (NEGATIVE) 05/02/18 13:45 Urine Glucose (UA) NEGATIVE mg/dL (NEGATIVE) 05/02/18 13:45 Urine Ketones NEGATIVE mg/dL (NEGATIVE) 05/02/18 13:45 Urine Occult Blood NEGATIVE (NEGATIVE) 05/02/18 13:45 Urine Nitrite NEGATIVE (NEGATIVE) 05/02/18 13:45 Urine Bilirubin NEGATIVE (NEGATIVE) 05/02/18 13:45 Urine Urobilinogen 0.2 (NORMAL) E.U./dL (NORMAL) 05/02/18 13:45 Ur Leukocyte Esterase NEGATIVE (NEGATIVE) 05/02/18 13:45 Ur Microscopic Review NOT INDICATED 05/02/18 13:45 Urine Culture Comments NOT INDICATED 05/02/18 13:45 Urine Opiates Screen NEGATIVE (NEGATIVE) 05/02/18 13:45 Ur Oxycodone Screen NEGATIVE (NEGATIVE) 05/02/18 13:45 Urine Methadone Screen NEGATIVE (NEGATIVE) 05/02/18 13:45 Ur Propoxyphene Screen NEGATIVE (NEGATIVE) 05/02/18 13:45 Ur Barbiturates Screen NEGATIVE (NEGATIVE) 05/02/18 13:45 Ur Tricyclics Screen NEGATIVE (NEGATIVE) 05/02/18 13:45 Ur Phencyclidine Scrn NEGATIVE (NEGATIVE) 05/02/18 13:45 Ur Amphetamine Screen NEGATIVE (NEGATIVE) 05/02/18 13:45 U Methamphetamines Scrn NEGATIVE (NEGATIVE) 05/02/18 13:45 U Benzodiazepines Scrn NEGATIVE (NEGATIVE) 05/02/18 13:45 Urine Cocaine Screen NEGATIVE (NEGATIVE) 05/02/18 13:45 U Cannabinoids Screen NEGATIVE (NEGATIVE) 05/02/18 13:45 Ethyl Alcohol < 5.0 mg/dL 05/02/18 09:40 - Procedures Procedures: Procedures ALCOHOL DETOXIFICATION (07/14/13) Sepsis Event Note (H) - Evaluation Current Stage of Sepsis: Ruled out ABX Reporting Has patient been on IV antibiotics over the past 48 hours?: No Current Medications - Current Medications Current Medications: Active Medications Generic Name Dose Route Start Last Admin Trade Name Freq PRN Reason Stop Dose Admin Acetaminophen 650 mg 05/02/18 11:56 05/04/18 17:20 Tylenol PO 650 mg Q4HR PRN Administration Pain 1 to 4 Chlordiazepoxide HCl 25 mg 05/05/18 18:00 Librium PO Q6HR SAVANA Enoxaparin Sodium 40 mg 05/05/18 09:00 05/05/18 09:09 Lovenox SUBQ 40 mg DAILY SAVANA Administration Hydralazine HCl 10 mg 05/05/18 16:45 Apresoline Inj IVP TID PRN hypertension SBP >160 Famotidine 50 mls @ 100 mls/hr 05/03/18 09:00 05/05/18 09:30 Pepcid 20 Mg/50 Ml IV Infused BID SAVANA Infusion Potassium Chloride/Sodium Chloride 1,000 mls @ 125 mls/hr 05/04/18 23:00 05/05/18 15:00 Normal Saline 0.9% W/20 Meq Kcl IV 125 mls/hr .Q8H SAVANA Infusion Lorazepam 100 mls @ 5 mls/hr 05/05/18 15:15 05/05/18 16:00 Ativan IV 5 mg/hr .Q20H SAVANA 5 mls/hr Administration Protocol 5 MG/HR Lorazepam 1 mg 05/03/18 12:33 05/05/18 04:35 Ativan Inj (Vial) IVP 1 mg Q2H PRN Administration Agitation Ondansetron HCl 4 mg 05/02/18 11:56 Zofran Inj IVP Q6HR PRN Nausea / Vomiting Polyethylene Glycol 17 gm 05/03/18 09:00 05/05/18 11:30 Miralax PO Not Given DAILY [facility] Multivit/Folic Acid/Iron 1 tab 05/05/18 09:00 05/05/18 11:30 Trinatal Rx 1 PO Not Given DAILY [facility] Sodium Chloride 10 ml 05/02/18 11:56 05/04/18 19:18 Normal Saline Flush 0.9% IVP 10 ml PRN PRN Administration NEEDED PER PROVIDER ORDERS Sodium Chloride 10 ml 05/02/18 17:00 05/05/18 09:12 Normal Saline Flush 0.9% IVP 10 ml 0100,[id number],1700 [facility] Administration Thiamine HCl 100 mg 05/05/18 09:00 05/05/18 11:30 Vitamin B-1 PO Not Given DAILY [facility] Ziprasidone 10 mg 05/05/18 04:48 05/05/18 10:56 Geodon Im IM 10 mg Q6H PRN Administration Agitation Gabapentin 600 mg PO TID 07/13/16 Lisinopril 40 mg PO DAILY 05/02/18 Propranolol HCl 20 mg PO TID 05/02/18 hydroCHLOROthiazide [Hydrochlorothiazide] 25 mg PO DAILY 05/02/18
[2018-05-05] MEDS: chlordiazePOXIDE 25 MG CAPSULE PO SCH ×2 (18:37→23:47)
[2018-05-05] MEDS ORDERED: DEXTROSE 5% 50 ML IV ONE (21:52)
[2018-05-05] MEDS ORDERED: DEXMEDETOMIDINE 400 MCG/100 ML 100 ML IV PRN (23:16)
[2018-05-05] MEDS ORDERED: LACTATED RINGERS 1,000 ML IV SCH (23:45)
[2018-05-06] MEDS: LORazepam 2 MG/ML VIAL IVP PRN ×2 (00:55→05:24)
[2018-05-06] MEDS: SODIUM CHLORIDE FLUSH 0.9% 10 ML SYRINGE IVP SCH ×4 (00:56→18:30)
[2018-05-06 05:17] LABS: BASOPHILS % (AUTO) 0.8 %; EOSINOPHILS # (AUTO) 0.2 10^3/uL (0.0-0.7); EOSINOPHILS % (AUTO) 3.1 %; HGB - HEMOGLOBIN 11.4 g/dL (14.0-18.0); LYMPHOCYTES # (AUTO) 1.7 10^3/uL (1.5-3.5); LYMPHOCYTES % (AUTO) 25.7 %; MEAN CORPUSCULAR HEMOGLOBIN 34.3 pg (27.0-31.0); MEAN CORPUSCULAR HGB CONC 34.6 g/dL (32.0-36.0); MEAN PLATELET VOLUME 7.6 fL (7.4-11.4); MONOCYTES # (AUTO) 0.8 10^3/uL (0.0-1.0); NEUTROPHILS # (AUTO) 3.7 10^3/uL (1.5-6.6); NEUTROPHILS % (AUTO) 57.4 %; PLT - PLATELET COUNT 170 10^3/uL (130-450); RED BLOOD COUNT 3.32 10^6/uL (4.70-6.10); RED CELL DISTRIBUTION WIDTH 13.7 % (12.0-15.0); WHITE BLOOD COUNT 6.4 x10^3/uL (4.8-10.8)
[2018-05-06] MEDS: chlordiazePOXIDE 25 MG CAPSULE PO SCH (05:24)
[2018-05-06 05:27] LABS: ALBUMIN 3.4 g/dL (3.2-5.5); ALBUMIN/GLOBULIN RATIO 1.4 (1.0-2.2); BILIRUBIN,TOTAL 0.6 mg/dL (0.2-1.0); CALCIUM 8.4 mg/dL (8.5-10.3); CREATININE 0.8 mg/dL (0.6-1.2); TOTAL PROTEIN 5.8 g/dL (6.7-8.2)
[2018-05-06] MEDS: ENOXAPARIN 40 MG/0.4 ML SYRINGE SUBQ SCH (09:39)
[2018-05-06] MEDS: FAMOTIDINE 20 MG/50 ML 50 ML IV SCH (09:44)
[2018-05-06] MEDS: PRENATAL VITAMIN TABLET PO SCH (09:55)
[2018-05-06] MEDS: THIAMINE 100 MG TABLET PO SCH (09:55)
[2018-05-06] MEDS: POLYETHYLENE GLYCOL 3350 17 GM PACKET PO SCH (12:06)
[2018-05-06] MEDS: HALOPERIDOL 5 MG/ML VIAL IVP PRN ×3 (12:09→22:48)
[2018-05-06] MEDS: SODIUM CHLORIDE FLUSH 0.9% 10 ML SYRINGE IVP PRN ×2 (12:15→22:48)
--- NOTE | 2018-05-06 14:02 | PROVIDER PROGRESS NOTE ---
Assessment/Plan - Problem List (1) Alcohol withdrawal delirium, acute, hyperactive Assessment/Plan: Pt still very confused, only oriented to self. Will start to transition off Ativan, in case that is causing some of the confusion. Will make the CIWA protocol prn, not q1h. Will used HAldol prn agitation. Pt still needs 1:1 BARREL TESTER. (2) HTN (hypertension) Assessment/Plan: Pt on his Lisinopril and Propranolol tid for BP. HCTZ on hold, since he wasn't hydrating. Will change short-acting Propranolol, to Metoprilol Succinate, fo better BP control. - Current Meds Current Meds: Current Medications Generic Name Dose Route Start Last Admin Trade Name Freq PRN Reason Stop Dose Admin Acetaminophen 650 mg 05/02/18 11:56 05/04/18 17:20 Tylenol PO 650 mg Q4HR PRN Administration Pain 1 to 4 Enoxaparin Sodium 40 mg 05/05/18 09:00 05/06/18 09:39 Lovenox SUBQ 40 mg DAILY SAVANA Administration Haloperidol 1 mg 05/06/18 11:00 05/06/18 12:09 Haldol Inj IVP 1 mg Q6H PRN Administration Agitation Famotidine 50 mls @ 100 mls/hr 05/03/18 09:00 05/06/18 12:08 Pepcid 20 Mg/50 Ml IV Infused BID SAVANA Infusion Lorazepam 1 mg 05/03/18 12:33 05/06/18 05:24 Ativan Inj (Vial) IVP 1 mg Q2H PRN Administration Agitation Polyethylene Glycol 17 gm 05/03/18 09:00 05/06/18 12:06 Miralax PO Not Given DAILY SAVANA Multivit/Folic Acid/Iron 1 tab 05/05/18 09:00 05/06/18 09:55 Trinatal Rx 1 PO 1 tab DAILY SAVANA Administration Sodium Chloride 10 ml 05/02/18 11:56 05/06/18 12:15 Normal Saline Flush 0.9% IVP 10 ml PRN PRN Administration NEEDED PER PROVIDER ORDERS Sodium Chloride 10 ml 05/02/18 17:00 05/06/18 12:07 Normal Saline Flush 0.9% IVP Not Given 0100,0900,1700 SAVANA Thiamine HCl 100 mg 05/05/18 09:00 05/06/18 09:55 Vitamin B-1 PO 100 mg DAILY SAVANA Administration - Lab Result Fish Bone Diagrams: 05/06/18 04:54 05/06/18 04:54 - Additional Planning My Orders: My Active Orders 05/06/18 11:00 Haloperidol Inj [Haldol Inj] 1 mg IVP Q6H PRN Subjective - Subjective Patient Reports: Other (He says he "cannot figure out this puzzle", cried when I tarted talking abut his mother, who called after that and he did not know how long he has been here.) Nursing Reports: Other (Picking at his patches, confused, oriented to self only.) Objective Vital Signs: Vital Signs - 24 hr 05/05/18 05/05/18 05/05/18 14:02 15:00 16:00 Temperature Heart Rate [ 42 L 36 L 36 L Monitoring electrodes] Respiratory 13 18 9 L Rate Blood Pressure [Left Brachial artery] Blood Pressure 146/107 H 168/106 H 167/101 H [Right Brachial artery] O2 Saturation 99 100 05/05/18 05/05/18 05/05/18 17:00 19:00 20:00 Temperature 36.7 C Heart Rate [ 36 L 84 74 Monitoring electrodes] Respiratory 9 L 16 10 L Rate Blood Pressure [Left Brachial artery] Blood Pressure 170/88 H 111/92 H 138/97 H [Right Brachial artery] O2 Saturation 99 99 100 05/05/18 05/05/18 05/05/18 21:00 22:00 23:00 Temperature Heart Rate [ 75 73 94 Monitoring electrodes] Respiratory 19 16 16 Rate Blood Pressure [Left Brachial artery] Blood Pressure 122/107 H 148/98 H 154/93 H [Right Brachial artery] O2 Saturation 100 100 100 05/06/18 05/06/18 05/06/18 00:03 01:02 02:00 Temperature Heart Rate [ 84 65 76 Monitoring electrodes] Respiratory 18 16 18 Rate Blood Pressure [Left Brachial artery] Blood Pressure 145/99 H 128/91 H 141/94 H [Right Brachial artery] O2 Saturation 97 100 100 05/06/18 05/06/18 05/06/18 03:00 04:02 05:02 Temperature Heart Rate [ 63 66 83 Monitoring electrodes] Respiratory 16 16 16 Rate Blood Pressure [Left Brachial artery] Blood Pressure 136/97 H 147/101 H 160/106 H [Right Brachial artery] O2 Saturation 98 100 96 05/06/18 05/06/18 05/06/18 06:03 07:05 08:00 Temperature 36.5 C Heart Rate [ 60 79 94 Monitoring electrodes] Respiratory 16 18 19 Rate Blood Pressure 168/104 H [Left Brachial artery] Blood Pressure 137/85 H 130/87 H [Right Brachial artery] O2 Saturation 99 100 97 05/06/18 05/06/18 05/06/18 09:00 10:00 11:00 Temperature 36.5 C Heart Rate [ 95 74 52 L Monitoring electrodes] Respiratory 13 21 18 Rate Blood Pressure 149/98 H 171/142 H 151/99 H [Left Brachial artery] Blood Pressure [Right Brachial artery] O2 Saturation 98 97 95 05/06/18 05/06/18 11:55 13:00 Temperature Heart Rate [ 59 L 80 Monitoring electrodes] Respiratory 20 17 Rate Blood Pressure 168/102 H 166/113 H [Left Brachial artery] Blood Pressure [Right Brachial artery] O2 Saturation 97 98 Oxygen O2 Source Room air I&O (Last 24 Hrs): Intake and Output Totals x24h 05/04/18 05/05/18 05/06/18 23:59 23:59 23:59 Intake Total 5504.467 5112.666 2295.700 Output Total 2625 1650 2750 Balance 2879.467 3462.666 -454.300 General: Other (speaking but confused and poss still hallucinating.) HEENT: Mucous membr. moist/pink Neck: Supple Neuro: Non Focal Cardiovascular: Regular rate, No murmurs Respiratory: No respiratory distress, Breath sounds nml Abdomen: Soft Extremities: No cyanosis, No edema - Results Results: Laboratory Results WBC 6.4 x10^3/uL (4.8-10.8) 05/06/18 04:54 RBC 3.32 10^6/uL (4.70-6.10) L 05/06/18 04:54 Hgb 11.4 g/dL (14.0-18.0) L 05/06/18 04:54 Hct 32.9 % (42.0-52.0) L 05/06/18 04:54 MCV 99.0 fL (80.0-94.0) H 05/06/18 04:54 MCH 34.3 pg (27.0-31.0) H 05/06/18 04:54 MCHC 34.6 g/dL (32.0-36.0) 05/06/18 04:54 RDW 13.7 % (12.0-15.0) 05/06/18 04:54 Plt Count 170 10^3/uL (130-450) 05/06/18 04:54 MPV 7.6 fL (7.4-11.4) 05/06/18 04:54 Neut # (Auto) 3.7 10^3/uL (1.5-6.6) 05/06/18 04:54 Lymph # (Auto) 1.7 10^3/uL (1.5-3.5) 05/06/18 04:54 [place] # (Auto) 0.8 10^3/uL (0.0-1.0) 05/06/18 04:54 Eos # (Auto) 0.2 10^3/uL (0.0-0.7) 05/06/18 04:54 Baso # (Auto) 0.0 10^3/uL (0.0-0.1) 05/06/18 04:54 Absolute Nucleated RBC 0.01 x10^3/uL 05/06/18 04:54 Nucleated RBC % 0.1 /100WBC 05/06/18 04:54 PT 11.5 secs (9.9-12.6) 05/02/18 09:10 INR 1.0 (0.8-1.2) 05/02/18 09:10 Sodium 140 mmol/L (135-145) 05/06/18 04:54 Potassium 3.9 mmol/L (3.5-5.0) 05/06/18 04:54 Chloride 113 mmol/L (101-111) H 05/06/18 04:54 Carbon Dioxide 22 mmol/L (21-32) 05/06/18 04:54 Anion Gap 5.0 (6-13) L 05/06/18 04:54 BUN 5 mg/dL (6-20) L 05/06/18 04:54 Creatinine 0.8 mg/dL (0.6-1.2) 05/06/18 04:54 Estimated GFR (MDRD) 101 (>89) 05/06/18 04:54 Glucose 97 mg/dL (70-100) 05/06/18 04:54 Calcium 8.4 mg/dL (8.5-10.3) L 05/06/18 04:54 Magnesium 2.3 mg/dL (1.7-2.8) 05/03/18 07:13 Total Bilirubin 0.6 mg/dL (0.2-1.0) 05/06/18 04:54 AST 22 IU/L (10-42) 05/06/18 04:54 ALT 18 IU/L (10-60) 05/06/18 04:54 Alkaline Phosphatase 41 IU/L (42-121) L 05/06/18 04:54 Total Protein 5.8 g/dL (6.7-8.2) L 05/06/18 04:54 Albumin 3.4 g/dL (3.2-5.5) 05/06/18 04:54 Globulin 2.4 g/dL (2.1-4.2) 05/06/18 04:54 Albumin/Globulin Ratio 1.4 (1.0-2.2) 05/06/18 04:54 Lipase 60 U/L (22-51) H 05/02/18 09:10 Urine Color YELLOW 05/02/18 13:45 Urine Clarity CLEAR (CLEAR) 05/02/18 13:45 Urine pH 6.0 PH (5.0-7.5) 05/02/18 13:45 Ur Specific [place] <=1.005 (1.002-1.030) 05/02/18 13:45 Urine Protein NEGATIVE mg/dL (NEGATIVE) 05/02/18 13:45 Urine Glucose (UA) NEGATIVE mg/dL (NEGATIVE) 05/02/18 13:45 Urine Ketones NEGATIVE mg/dL (NEGATIVE) 05/02/18 13:45 Urine Occult Blood NEGATIVE (NEGATIVE) 05/02/18 13:45 Urine Nitrite NEGATIVE (NEGATIVE) 05/02/18 13:45 Urine Bilirubin NEGATIVE (NEGATIVE) 05/02/18 13:45 Urine Urobilinogen 0.2 (NORMAL) E.U./dL (NORMAL) 05/02/18 13:45 Ur Leukocyte Esterase NEGATIVE (NEGATIVE) 05/02/18 13:45 Ur Microscopic Review NOT INDICATED 05/02/18 13:45 Urine Culture Comments NOT INDICATED 05/02/18 13:45 Urine Opiates Screen NEGATIVE (NEGATIVE) 05/02/18 13:45 Ur Oxycodone Screen NEGATIVE (NEGATIVE) 05/02/18 13:45 Urine Methadone Screen NEGATIVE (NEGATIVE) 05/02/18 13:45 Ur Propoxyphene Screen NEGATIVE (NEGATIVE) 05/02/18 13:45 Ur Barbiturates Screen NEGATIVE (NEGATIVE) 05/02/18 13:45 Ur Tricyclics Screen NEGATIVE (NEGATIVE) 05/02/18 13:45 Ur Phencyclidine Scrn NEGATIVE (NEGATIVE) 05/02/18 13:45 Ur Amphetamine Screen NEGATIVE (NEGATIVE) 05/02/18 13:45 U Methamphetamines Scrn NEGATIVE (NEGATIVE) 05/02/18 13:45 U Benzodiazepines Scrn NEGATIVE (NEGATIVE) 05/02/18 13:45 Urine Cocaine Screen NEGATIVE (NEGATIVE) 05/02/18 13:45 U Cannabinoids Screen NEGATIVE (NEGATIVE) 05/02/18 13:45 Ethyl Alcohol < 5.0 mg/dL 05/02/18 09:40 - Procedures Procedures: Procedures ALCOHOL DETOXIFICATION (07/14/13) Sepsis Event Note (H) - Evaluation Current Stage of Sepsis: Ruled out
[2018-05-06] MEDS ORDERED: LISINOPRIL 5 MG TABLET PO SCH (15:42)
[2018-05-06] MEDS ORDERED: ACETAMINOPHEN 1,000 MG/100 ML 100 ML IV PRN (17:58)
[2018-05-06] MEDS: FAMOTIDINE 20 MG TABLET PO SCH (20:45)
[2018-05-06] MEDS: METOPROLOL SUCCINATE 25 MG TABLET PO SCH (20:45)
[2018-05-06] MEDS ORDERED: LABETALOL 20 MG/4 ML SYRINGE IVP ONE (22:22)
[2018-05-07] MEDS: SODIUM CHLORIDE FLUSH 0.9% 10 ML SYRINGE IVP SCH ×3 (05:12→16:41)
[2018-05-07] MEDS: LISINOPRIL 20 MG TABLET PO SCH (08:05)
[2018-05-07] MEDS: METOPROLOL SUCCINATE 25 MG TABLET PO SCH ×2 (08:05→20:46)
[2018-05-07] MEDS: THIAMINE 100 MG TABLET PO SCH (08:05)
[2018-05-07] MEDS: FAMOTIDINE 20 MG TABLET PO SCH ×2 (08:06→20:46)
[2018-05-07] MEDS: POLYETHYLENE GLYCOL 3350 17 GM PACKET PO SCH (08:06)
[2018-05-07] MEDS: PRENATAL VITAMIN TABLET PO SCH (08:18)
[2018-05-07] MEDS: ENOXAPARIN 40 MG/0.4 ML SYRINGE SUBQ SCH (09:20)
--- NOTE | 2018-05-07 16:08 | PROVIDER PROGRESS NOTE ---
Assessment/Plan - Problem List (1) Alcohol withdrawal delirium, acute, hyperactive Assessment/Plan: Pt is now > 5 days since his last EtOH, and off iv Ativan, iv Precedex and Haldol boluses. Ammonia level is neg. Pt refused brain MRI and is still fidgety, per RN and may not stay still for brain imaging. Confusion remains. Will continue close 1:1 observation in ICU, restraints prn and try to stay off sedatives to allow sensorium to clear. I also plan to reach out to Neurology at [facility] to discuss his case. (2) HTN (hypertension) Assessment/Plan: HT is not adequately controlled. This may be a sign of hos DTs yet plus underlying essential HTN. Meds being adjusted for BP control with prn iv Labetolol, however he refuses those doses occais. - Current Meds Current Meds: Current Medications Generic Name Dose Route Start Last Admin Trade Name Freq PRN Reason Stop Dose Admin Acetaminophen 650 mg 05/02/18 11:56 05/04/18 17:20 Tylenol PO 650 mg Q4HR PRN Administration Pain 1 to 4 Enoxaparin Sodium 40 mg 05/05/18 09:00 05/07/18 09:20 Lovenox SUBQ 40 mg DAILY SAVANA Administration Famotidine 20 mg 05/06/18 21:00 05/07/18 08:06 Pepcid PO 20 mg BID SAVANA Administration Haloperidol 1 mg 05/06/18 22:25 05/06/18 22:48 Haldol Inj IVP 1 mg Q1HR PRN Administration Agitation Lisinopril 20 mg 05/07/18 09:00 05/07/18 08:05 Zestril PO 20 mg DAILY SAVANA Administration Lorazepam 1 mg 05/03/18 12:33 05/06/18 05:24 Ativan Inj (Vial) IVP 1 mg Q2H PRN Administration Agitation Metoprolol Succinate 25 mg 05/06/18 21:00 05/07/18 08:05 Toprol Xl PO 25 mg BID SAVANA Administration Polyethylene Glycol 17 gm 05/03/18 09:00 05/07/18 08:06 Miralax PO Not Given DAILY SAVANA Multivit/Folic Acid/Iron 1 tab 05/05/18 09:00 05/07/18 08:18 Trinatal Rx 1 PO 1 tab DAILY SAVANA Administration Sodium Chloride 10 ml 05/02/18 11:56 05/06/18 22:48 Normal Saline Flush 0.9% IVP 10 ml PRN PRN Administration NEEDED PER PROVIDER ORDERS Sodium Chloride 10 ml 05/02/18 17:00 05/07/18 08:06 Normal Saline Flush 0.9% IVP 10 ml 0100,0900,1700 SAVANA Administration Thiamine HCl 100 mg 05/05/18 09:00 05/07/18 08:05 Vitamin B-1 PO 100 mg DAILY SAVANA Administration - Lab Result Fish Bone Diagrams: 05/06/18 04:54 05/06/18 04:54 - Additional Planning My Orders: My Active Orders 05/06/18 17:58 Acetaminophen 1,000 mg/100 ml [Ofirmev] 100 ml IV Q6HR 05/06/18 21:00 Famotidine [Pepcid] 20 mg PO BID Metoprolol Succinate [Toprol Xl] 25 mg PO BID 05/07/18 09:00 Lisinopril [Zestril] 20 mg PO DAILY Subjective - Subjective Patient Reports: Other (Thinks he is in a place with columns outdoors, cannot be more spcific.) Nursing Reports: Other (Confused and talking about things that are not there) Objective Vital Signs: Vital Signs - 24 hr 05/06/18 05/06/18 05/06/18 17:00 18:00 19:00 Temperature 37.4 C Heart Rate [ 112 H 129 H 95 Monitoring electrodes] Respiratory 17 16 19 Rate Blood Pressure 168/119 H 160/117 H 155/113 H [Left Brachial artery] O2 Saturation 96 94 96 05/06/18 05/06/18 05/06/18 20:00 21:00 22:00 Temperature Heart Rate [ 74 68 95 Monitoring electrodes] Respiratory 15 22 17 Rate Blood Pressure 169/113 H 165/106 H 185/103 H [Left Brachial artery] O2 Saturation 96 97 05/06/18 05/06/18 05/06/18 22:45 22:52 22:57 Temperature Heart Rate [ 98 Monitoring electrodes] Respiratory 14 Rate Blood Pressure 124/93 H 186/109 H 176/110 H [Left Brachial artery] O2 Saturation 96 05/06/18 05/06/18 05/06/18 23:15 23:30 23:45 Temperature Heart Rate [ Monitoring electrodes] Respiratory Rate Blood Pressure 165/106 H 174/99 H 162/91 H [Left Brachial artery] O2 Saturation 05/07/18 05/07/18 05/07/18 00:00 01:00 02:00 Temperature 36.6 C Heart Rate [ 74 54 L Monitoring electrodes] Respiratory 20 14 Rate Blood Pressure 167/98 H 145/96 H 142/95 H [Left Brachial artery] O2 Saturation 97 97 05/07/18 05/07/18 05/07/18 03:00 04:00 05:00 Temperature Heart Rate [ 73 43 L 54 L Monitoring electrodes] Respiratory 16 14 14 Rate Blood Pressure 156/107 H 153/103 H 146/97 H [Left Brachial artery] O2 Saturation 97 05/07/18 05/07/18 05/07/18 06:00 07:00 08:00 Temperature 36.6 C 36.7 C Heart Rate [ 83 53 L 85 Monitoring electrodes] Respiratory 15 13 19 Rate Blood Pressure 151/101 H 160/100 H 144/104 H [Left Brachial artery] O2 Saturation 98 96 05/07/18 05/07/18 05/07/18 09:00 10:00 11:00 Temperature Heart Rate [ 111 H 72 83 Monitoring electrodes] Respiratory 18 15 18 Rate Blood Pressure 141/105 H 119/83 H 158/102 H [Left Brachial artery] O2 Saturation 96 97 96 05/07/18 05/07/18 05/07/18 12:00 13:00 14:00 Temperature Heart Rate [ 113 H 108 H 99 Monitoring electrodes] Respiratory 16 19 20 Rate Blood Pressure 185/112 H 165/107 H 179/109 H [Left Brachial artery] O2 Saturation 96 96 96 05/07/18 05/07/18 15:00 16:00 Temperature Heart Rate [ 111 H 88 Monitoring electrodes] Respiratory 19 16 Rate Blood Pressure 154/100 H 183/119 H [Left Brachial artery] O2 Saturation 96 97 Oxygen O2 Source Room air I&O (Last 24 Hrs): Intake and Output Totals x24h 05/05/18 05/06/18 05/07/18 23:59 23:59 23:59 Intake Total 5112.666 3275.700 600 Output Total 1650 4575 675 Balance 3462.666 -1299.300 -75 General: Other (Appears fatigued, is awake and answering slowly.) HEENT: Mucous membr. moist/pink Neck: Supple, No JVD Neuro: Non Focal, Speech Slurred Cardiovascular: Regular rate, No murmurs Respiratory: No respiratory distress, Breath sounds nml Abdomen: Soft Extremities: No edema - Results Results: Laboratory Results WBC 6.4 x10^3/uL (4.8-10.8) 05/06/18 04:54 RBC 3.32 10^6/uL (4.70-6.10) L 05/06/18 04:54 Hgb 11.4 g/dL (14.0-18.0) L 05/06/18 04:54 Hct 32.9 % (42.0-52.0) L 05/06/18 04:54 MCV 99.0 fL (80.0-94.0) H 05/06/18 04:54 MCH 34.3 pg (27.0-31.0) H 05/06/18 04:54 MCHC 34.6 g/dL (32.0-36.0) 05/06/18 04:54 RDW 13.7 % (12.0-15.0) 05/06/18 04:54 Plt Count 170 10^3/uL (130-450) 05/06/18 04:54 MPV 7.6 fL (7.4-11.4) 05/06/18 04:54 Neut # (Auto) 3.7 10^3/uL (1.5-6.6) 05/06/18 04:54 Lymph # (Auto) 1.7 10^3/uL (1.5-3.5) 05/06/18 04:54 [place] # (Auto) 0.8 10^3/uL (0.0-1.0) 05/06/18 04:54 Eos # (Auto) 0.2 10^3/uL (0.0-0.7) 05/06/18 04:54 Baso # (Auto) 0.0 10^3/uL (0.0-0.1) 05/06/18 04:54 Absolute Nucleated RBC 0.01 x10^3/uL 05/06/18 04:54 Nucleated RBC % 0.1 /100WBC 05/06/18 04:54 PT 11.5 secs (9.9-12.6) 05/02/18 09:10 INR 1.0 (0.8-1.2) 05/02/18 09:10 Sodium 140 mmol/L (135-145) 05/06/18 04:54 Potassium 3.9 mmol/L (3.5-5.0) 05/06/18 04:54 Chloride 113 mmol/L (101-111) H 05/06/18 04:54 Carbon Dioxide 22 mmol/L (21-32) 05/06/18 04:54 Anion Gap 5.0 (6-13) L 05/06/18 04:54 BUN 5 mg/dL (6-20) L 05/06/18 04:54 Creatinine 0.8 mg/dL (0.6-1.2) 05/06/18 04:54 Estimated GFR (MDRD) 101 (>89) 05/06/18 04:54 Glucose 97 mg/dL (70-100) 05/06/18 04:54 Calcium 8.4 mg/dL (8.5-10.3) L 05/06/18 04:54 Magnesium 2.3 mg/dL (1.7-2.8) 05/03/18 07:13 Total Bilirubin 0.6 mg/dL (0.2-1.0) 05/06/18 04:54 AST 22 IU/L (10-42) 05/06/18 04:54 ALT 18 IU/L (10-60) 05/06/18 04:54 Alkaline Phosphatase 41 IU/L (42-121) L 05/06/18 04:54 Ammonia < 10.0 umol/L (7-35) 05/07/18 00:10 Total Protein 5.8 g/dL (6.7-8.2) L 05/06/18 04:54 Albumin 3.4 g/dL (3.2-5.5) 05/06/18 04:54 Globulin 2.4 g/dL (2.1-4.2) 05/06/18 04:54 Albumin/Globulin Ratio 1.4 (1.0-2.2) 05/06/18 04:54 Lipase 60 U/L (22-51) H 05/02/18 09:10 Urine Color YELLOW 05/02/18 13:45 Urine Clarity CLEAR (CLEAR) 05/02/18 13:45 Urine pH 6.0 PH (5.0-7.5) 05/02/18 13:45 Ur Specific [place] <=1.005 (1.002-1.030) 05/02/18 13:45 Urine Protein NEGATIVE mg/dL (NEGATIVE) 05/02/18 13:45 Urine Glucose (UA) NEGATIVE mg/dL (NEGATIVE) 05/02/18 13:45 Urine Ketones NEGATIVE mg/dL (NEGATIVE) 05/02/18 13:45 Urine Occult Blood NEGATIVE (NEGATIVE) 05/02/18 13:45 Urine Nitrite NEGATIVE (NEGATIVE) 05/02/18 13:45 Urine Bilirubin NEGATIVE (NEGATIVE) 05/02/18 13:45 Urine Urobilinogen 0.2 (NORMAL) E.U./dL (NORMAL) 05/02/18 13:45 Ur Leukocyte Esterase NEGATIVE (NEGATIVE) 05/02/18 13:45 Ur Microscopic Review NOT INDICATED 05/02/18 13:45 Urine Culture Comments NOT INDICATED 05/02/18 13:45 Urine Opiates Screen NEGATIVE (NEGATIVE) 05/02/18 13:45 Ur Oxycodone Screen NEGATIVE (NEGATIVE) 05/02/18 13:45 Urine Methadone Screen NEGATIVE (NEGATIVE) 05/02/18 13:45 Ur Propoxyphene Screen NEGATIVE (NEGATIVE) 05/02/18 13:45 Ur Barbiturates Screen NEGATIVE (NEGATIVE) 05/02/18 13:45 Ur Tricyclics Screen NEGATIVE (NEGATIVE) 05/02/18 13:45 Ur Phencyclidine Scrn NEGATIVE (NEGATIVE) 05/02/18 13:45 Ur Amphetamine Screen NEGATIVE (NEGATIVE) 05/02/18 13:45 U Methamphetamines Scrn NEGATIVE (NEGATIVE) 05/02/18 13:45 U Benzodiazepines Scrn NEGATIVE (NEGATIVE) 05/02/18 13:45 Urine Cocaine Screen NEGATIVE (NEGATIVE) 05/02/18 13:45 U Cannabinoids Screen NEGATIVE (NEGATIVE) 05/02/18 13:45 Ethyl Alcohol < 5.0 mg/dL 05/02/18 09:40 - Procedures Procedures: Procedures ALCOHOL DETOXIFICATION (07/14/13) Sepsis Event Note (H) - Evaluation Current Stage of Sepsis: Ruled out
[2018-05-07] MEDS: LABETALOL 20 MG/4 ML SYRINGE IVP PRN (17:48)
[2018-05-07] MEDS: HALOPERIDOL 5 MG/ML VIAL IVP PRN (23:33)
[2018-05-08] MEDS: SODIUM CHLORIDE FLUSH 0.9% 10 ML SYRINGE IVP SCH ×5 (00:40→23:41)
[2018-05-08] MEDS: HALOPERIDOL 5 MG/ML VIAL IVP PRN ×2 (00:41→09:07)
[2018-05-08] MEDS: LABETALOL 20 MG/4 ML SYRINGE IVP PRN ×2 (03:10→11:00)
[2018-05-08] MEDS: LORazepam 2 MG/ML VIAL IVP PRN ×2 (03:22→09:29)
[2018-05-08] MEDS: SODIUM CHLORIDE FLUSH 0.9% 10 ML SYRINGE IVP PRN ×2 (03:22→09:07)
[2018-05-08] MEDS: ENOXAPARIN 40 MG/0.4 ML SYRINGE SUBQ SCH (08:32)
[2018-05-08] MEDS: FAMOTIDINE 20 MG TABLET PO SCH ×2 (08:33→20:56)
[2018-05-08] MEDS: LISINOPRIL 20 MG TABLET PO SCH ×2 (08:33→20:56)
[2018-05-08] MEDS: PRENATAL VITAMIN TABLET PO SCH (08:35)
[2018-05-08] MEDS: THIAMINE 100 MG TABLET PO SCH (08:35)
[2018-05-08] MEDS: METOPROLOL SUCCINATE 25 MG TABLET PO SCH ×2 (08:39→20:56)
[2018-05-08] MEDS ORDERED: METOPROLOL SUCCINATE 25 MG TABLET PO SCH (10:46)
[2018-05-08] MEDS ORDERED: cloNIDine 0.1 MG PATCH TOP SCH (11:00)
[2018-05-08] MEDS ORDERED: LORazepam 0.5 MG TABLET PO PRN (11:35)
--- NOTE | 2018-05-08 11:42 | PROVIDER PROGRESS NOTE ---
Assessment/Plan - Problem List (1) Alcohol withdrawal delirium, acute, hyperactive Assessment/Plan: I spoke to the Neurologist On-Call from [facility] today and reviewed the case. The Neurologist's impression was that the patient is still going through a long alcohol withdrawal, by exhibiting diffuse encephalopathy and agitation. These symptoms could last as long as 10-14 days from an alcoholic's last alcohol drink. We are now on day 8 post-last drink of alcohol and his 5th day as an inpatient. This is an unexpectedly long withdrawal period, that could not have been anticipated at the time of admission. He will need continued inpatient management here, as there are no procedures, meds or management that we need to transfer him for. No repeat imaging of the brain is necessary, per the specialist. The Neurologist advised continued management with a [facility] protocol to watch for seizures, and use benzodiazepines or anti-psychotics for treating agitation, to prevent harm to himself and staff. Will start a scheduled dose of po Ativan and continue prn Haldol and prn iv At [place]. Continue restraints if he is agitated. Continue Thiamine replacement. Will check a MUDS test for any toxic metabolites, in case there has been anyone possibly visiting and slipping him illicit drugs. (2) HTN (hypertension) Assessment/Plan: HR and BP are elevated. This does suggest continued withdrawal symptoms. Will increase his B-kaley dose. Will order his home dose of Lisinopril 40 mg daily, but in divided doses of 20 mg bid. Will NOT resume his HCTZ which likely added to his hyponatremia, seen at admission. Will add a Clonidone topical patch. Continue Labetolol iv prn, for excessive BPs. Will change his Reg diet to a 2gm low-salt diet. - Current Meds Current Meds: Current Medications Generic Name Dose Route Start Last Admin Trade Name Freq PRN Reason Stop Dose Admin Acetaminophen 650 mg 05/02/18 11:56 05/04/18 17:20 Tylenol PO 650 mg Q4HR PRN Administration Pain 1 to 4 Clonidine HCl 1 patch 05/08/18 11:00 05/08/18 10:53 [id number] TOP 1 patch Q7D SAVANA Administration Enoxaparin Sodium 40 mg 05/05/18 09:00 05/08/18 08:32 Lovenox SUBQ 40 mg DAILY SAVANA Administration Famotidine 20 mg 05/06/18 21:00 05/08/18 08:33 Pepcid PO 20 mg BID SAVANA Administration Haloperidol 1 mg 05/06/18 22:25 05/08/18 09:07 Haldol Inj IVP 1 mg Q1HR PRN Administration Agitation Labetalol HCl 10 mg 05/06/18 23:59 05/08/18 11:00 Trandate Syringe IVP 10 mg Q8HR PRN Administration SBP>165 Lorazepam 1 mg 05/03/18 12:33 05/08/18 09:29 Ativan Inj (Vial) IVP 1 mg Q2H PRN Administration Agitation Polyethylene Glycol 17 gm 05/03/18 09:00 05/07/18 08:06 Miralax PO Not Given DAILY SAVANA Multivit/Folic Acid/Iron 1 tab 05/05/18 09:00 05/08/18 08:35 Trinatal Rx 1 PO 1 tab DAILY SAVANA Administration Sodium Chloride 10 ml 05/02/18 11:56 05/08/18 09:07 Normal Saline Flush 0.9% IVP 10 ml PRN PRN Administration NEEDED PER PROVIDER ORDERS Sodium Chloride 10 ml 05/02/18 17:00 05/08/18 08:38 Normal Saline Flush 0.9% IVP 10 ml 0100,0900,1700 SAVANA Administration Thiamine HCl 100 mg 05/05/18 09:00 05/08/18 08:35 Vitamin B-1 PO 100 mg DAILY SAVANA Administration - Lab Result Fish Bone Diagrams: 05/06/18 04:54 05/06/18 04:54 - Additional Planning My Orders: My Active Orders 05/07/18 16:50 Restraints [RC] Q24H 05/08/18 DRUG SCREEN MEDICAL (MUDS) [URIN] Routine 05/08/18 10:35 Restraints Safety Checks [RC] Q5MIN Restraints [RC] Q24H 05/08/18 10:46 Metoprolol Succinate [Toprol Xl] 25 mg PO ONCE 05/08/18 11:00 cloNIDine 0.1 MG PATCH [[id number]-Zyh-5] 1 patch TOP Q7D 05/08/18 12:00 LORazepam [Ativan] 0.5 mg PO Q6H 05/08/18 21:00 Lisinopril [Zestril] 20 mg PO BID Metoprolol Succinate [Toprol Xl] 50 mg PO BID 05/08/18 Lunch DIET [Low Sodium Diet] [DIET] Subjective - Subjective Patient Reports: Feeling Better, Other (Fidgety) Nursing Reports: Other (He was again combative overnight, got Haldol.) Objective Vital Signs: Vital Signs - 24 hr 05/07/18 05/07/18 05/07/18 12:00 13:00 14:00 Temperature Heart Rate [ 113 H 108 H 99 Monitoring electrodes] Respiratory 16 19 20 Rate Blood Pressure 185/112 H 165/107 H 179/109 H [Left Brachial artery] Blood Pressure [Right Brachial artery] O2 Saturation 96 96 96 05/07/18 05/07/18 05/07/18 15:00 16:00 17:00 Temperature Heart Rate [ 111 H 88 110 H Monitoring electrodes] Respiratory 19 16 20 Rate Blood Pressure 154/100 H 183/119 H 194/119 H [Left Brachial artery] Blood Pressure [Right Brachial artery] O2 Saturation 96 97 96 05/07/18 05/07/18 05/07/18 17:52 18:02 18:10 Temperature Heart Rate [ 87 84 95 Monitoring electrodes] Respiratory 19 15 17 Rate Blood Pressure 176/117 H 176/108 H 176/116 H [Left Brachial artery] Blood Pressure [Right Brachial artery] O2 Saturation 96 96 96 05/07/18 05/07/18 05/07/18 19:00 20:00 21:00 Temperature Heart Rate [ 88 70 76 Monitoring electrodes] Respiratory 20 13 16 Rate Blood Pressure 159/107 H 138/105 H 173/109 H [Left Brachial artery] Blood Pressure [Right Brachial artery] O2 Saturation 96 96 05/07/18 05/07/18 05/08/18 22:00 23:00 00:00 Temperature Heart Rate [ 72 82 90 Monitoring electrodes] Respiratory 13 17 17 Rate Blood Pressure 152/98 H 170/119 H 172/119 H [Left Brachial artery] Blood Pressure [Right Brachial artery] O2 Saturation 96 95 05/08/18 05/08/18 05/08/18 01:02 02:03 03:00 Temperature Heart Rate [ 60 79 105 H Monitoring electrodes] Respiratory 12 16 20 Rate Blood Pressure 158/109 H 136/85 H 181/124 H [Left Brachial artery] Blood Pressure [Right Brachial artery] O2 Saturation 05/08/18 05/08/18 05/08/18 03:15 03:20 03:32 Temperature Heart Rate [ 95 89 92 Monitoring electrodes] Respiratory 13 14 14 Rate Blood Pressure 182/123 H 189/121 H 185/116 H [Left Brachial artery] Blood Pressure [Right Brachial artery] O2 Saturation 05/08/18 05/08/18 05/08/18 03:45 04:00 04:15 Temperature Heart Rate [ 92 71 65 Monitoring electrodes] Respiratory 14 16 16 Rate Blood Pressure 199/136 H 179/110 H 168/92 H [Left Brachial artery] Blood Pressure [Right Brachial artery] O2 Saturation 95 05/08/18 05/08/18 05/08/18 05:00 06:00 07:00 Temperature Heart Rate [ 81 55 L Monitoring electrodes] Respiratory 14 11 L 12 Rate Blood Pressure 176/118 H 131/101 H 137/113 H [Left Brachial artery] Blood Pressure [Right Brachial artery] O2 Saturation 05/08/18 05/08/18 05/08/18 08:00 09:00 09:14 Temperature 37 C Heart Rate [ 67 107 H 105 H Monitoring electrodes] Respiratory 14 17 Rate Blood Pressure [Left Brachial artery] Blood Pressure 135/99 H 168/114 H 157/111 H [Right Brachial artery] O2 Saturation 93 95 95 05/08/18 05/08/18 05/08/18 10:00 11:00 11:05 Temperature Heart Rate [ 103 H 88 85 Monitoring electrodes] Respiratory 15 13 12 Rate Blood Pressure [Left Brachial artery] Blood Pressure 187/116 H 158/116 H 166/109 H [Right Brachial artery] O2 Saturation 96 92 95 05/08/18 05/08/18 11:10 11:15 Temperature Heart Rate [ 89 98 Monitoring electrodes] Respiratory 14 12 Rate Blood Pressure [Left Brachial artery] Blood Pressure 160/117 H 164/114 H [Right Brachial artery] O2 Saturation 95 98 Oxygen O2 Source Room air I&O (Last 24 Hrs): Intake and Output Totals x24h 05/06/18 05/07/18 05/08/18 23:59 23:59 23:59 Intake Total 3275.700 1000 950 Output Total 4575 950 775 Balance -1299.300 50 175 General: Other (Lethargic, words are slurring) HEENT: Mucous membr. moist/pink Neck: Supple Neuro: Other (Lethargic, words are alurring, was able to walk in hallway this am however, side by side with RN and PHOTO EDITOR) Cardiovascular: Regular rate, No murmurs Respiratory: No respiratory distress, Breath sounds nml Abdomen: Soft Extremities: No edema - Results Results: Laboratory Results WBC 6.4 x10^3/uL (4.8-10.8) 05/06/18 04:54 RBC 3.32 10^6/uL (4.70-6.10) L 05/06/18 04:54 Hgb 11.4 g/dL (14.0-18.0) L 05/06/18 04:54 Hct 32.9 % (42.0-52.0) L 05/06/18 04:54 MCV 99.0 fL (80.0-94.0) H 05/06/18 04:54 MCH 34.3 pg (27.0-31.0) H 05/06/18 04:54 MCHC 34.6 g/dL (32.0-36.0) 05/06/18 04:54 RDW 13.7 % (12.0-15.0) 05/06/18 04:54 Plt Count 170 10^3/uL (130-450) 05/06/18 04:54 MPV 7.6 fL (7.4-11.4) 05/06/18 04:54 Neut # (Auto) 3.7 10^3/uL (1.5-6.6) 05/06/18 04:54 Lymph # (Auto) 1.7 10^3/uL (1.5-3.5) 05/06/18 04:54 [place] # (Auto) 0.8 10^3/uL (0.0-1.0) 05/06/18 04:54 Eos # (Auto) 0.2 10^3/uL (0.0-0.7) 05/06/18 04:54 Baso # (Auto) 0.0 10^3/uL (0.0-0.1) 05/06/18 04:54 Absolute Nucleated RBC 0.01 x10^3/uL 05/06/18 04:54 Nucleated RBC % 0.1 /100WBC 05/06/18 04:54 PT 11.5 secs (9.9-12.6) 05/02/18 09:10 INR 1.0 (0.8-1.2) 05/02/18 09:10 Sodium 140 mmol/L (135-145) 05/06/18 04:54 Potassium 3.9 mmol/L (3.5-5.0) 05/06/18 04:54 Chloride 113 mmol/L (101-111) H 05/06/18 04:54 Carbon Dioxide 22 mmol/L (21-32) 05/06/18 04:54 Anion Gap 5.0 (6-13) L 05/06/18 04:54 BUN 5 mg/dL (6-20) L 05/06/18 04:54 Creatinine 0.8 mg/dL (0.6-1.2) 05/06/18 04:54 Estimated GFR (MDRD) 101 (>89) 05/06/18 04:54 Glucose 97 mg/dL (70-100) 05/06/18 04:54 Calcium 8.4 mg/dL (8.5-10.3) L 05/06/18 04:54 Magnesium 2.3 mg/dL (1.7-2.8) 05/03/18 07:13 Total Bilirubin 0.6 mg/dL (0.2-1.0) 05/06/18 04:54 AST 22 IU/L (10-42) 05/06/18 04:54 ALT 18 IU/L (10-60) 05/06/18 04:54 Alkaline Phosphatase 41 IU/L (42-121) L 05/06/18 04:54 Ammonia < 10.0 umol/L (7-35) 05/07/18 00:10 Total Protein 5.8 g/dL (6.7-8.2) L 05/06/18 04:54 Albumin 3.4 g/dL (3.2-5.5) 05/06/18 04:54 Globulin 2.4 g/dL (2.1-4.2) 05/06/18 04:54 Albumin/Globulin Ratio 1.4 (1.0-2.2) 05/06/18 04:54 Lipase 60 U/L (22-51) H 05/02/18 09:10 Urine Color YELLOW 05/02/18 13:45 Urine Clarity CLEAR (CLEAR) 05/02/18 13:45 Urine pH 6.0 PH (5.0-7.5) 05/02/18 13:[address] <=1.005 (1.002-1.030) 05/02/18 13:45 Urine Protein NEGATIVE mg/dL (NEGATIVE) 05/02/18 13:45 Urine Glucose (UA) NEGATIVE mg/dL (NEGATIVE) 05/02/18 13:45 Urine Ketones NEGATIVE mg/dL (NEGATIVE) 05/02/18 13:45 Urine Occult Blood NEGATIVE (NEGATIVE) 05/02/18 13:45 Urine Nitrite NEGATIVE (NEGATIVE) 05/02/18 13:45 Urine Bilirubin NEGATIVE (NEGATIVE) 05/02/18 13:45 Urine Urobilinogen 0.2 (NORMAL) E.U./dL (NORMAL) 05/02/18 13:45 Ur Leukocyte Esterase NEGATIVE (NEGATIVE) 05/02/18 13:45 Ur Microscopic Review NOT INDICATED 05/02/18 13:45 Urine Culture Comments NOT INDICATED 05/02/18 13:45 Urine Opiates Screen NEGATIVE (NEGATIVE) 05/02/18 13:45 Ur Oxycodone Screen NEGATIVE (NEGATIVE) 05/02/18 13:45 Urine Methadone Screen NEGATIVE (NEGATIVE) 05/02/18 13:45 Ur Propoxyphene Screen NEGATIVE (NEGATIVE) 05/02/18 13:45 Ur Barbiturates Screen NEGATIVE (NEGATIVE) 05/02/18 13:45 Ur Tricyclics Screen NEGATIVE (NEGATIVE) 05/02/18 13:45 Ur Phencyclidine Scrn NEGATIVE (NEGATIVE) 05/02/18 13:45 Ur Amphetamine Screen NEGATIVE (NEGATIVE) 05/02/18 13:45 U Methamphetamines Scrn NEGATIVE (NEGATIVE) 05/02/18 13:45 U Benzodiazepines Scrn NEGATIVE (NEGATIVE) 05/02/18 13:45 Urine Cocaine Screen NEGATIVE (NEGATIVE) 05/02/18 13:45 U Cannabinoids Screen NEGATIVE (NEGATIVE) 05/02/18 13:45 Ethyl Alcohol < 5.0 mg/dL 05/02/18 09:40 - Procedures Procedures: Procedures ALCOHOL DETOXIFICATION (07/14/13) Sepsis Event Note (H) - Evaluation Current Stage of Sepsis: Ruled out
[2018-05-08] MEDS: POLYETHYLENE GLYCOL 3350 17 GM PACKET PO SCH (12:11)
[2018-05-08] MEDS: LORazepam 0.5 MG TABLET PO SCH ×3 (12:46→23:41)
[2018-05-08 13:24] LABS: MUDS CUTOFF CONCENTRATIONS CUTOFF CONC BELOW:
[2018-05-08 13:46] LABS: AMPHETAMINE SCREEN,URINE NEGATIVE (NEGATIVE); BENZODIAZEPINES SCREEN, URINE POSITIVE (NEGATIVE); COCAINE SCREEN URINE NEGATIVE (NEGATIVE); METHADONE SCREEN, URINE NEGATIVE (NEGATIVE); METHAMPHETAMINES SCREEN, URINE NEGATIVE (NEGATIVE); OPIATE SCREEN, URINE NEGATIVE (NEGATIVE); OXYCODONE SCREEN, URINE NEGATIVE (NEGATIVE); PROPOXYPHENE SCREEN, URINE NEGATIVE (NEGATIVE); TRICYCLIC ANTIDEPRESSANT,URINE NEGATIVE (NEGATIVE)
[2018-05-09] MEDS: LORazepam 0.5 MG TABLET PO SCH ×3 (06:04→17:26)
[2018-05-09] MEDS: POLYETHYLENE GLYCOL 3350 17 GM PACKET PO SCH (08:46)
[2018-05-09] MEDS: PRENATAL VITAMIN TABLET PO SCH (09:16)
[2018-05-09] MEDS: FAMOTIDINE 20 MG TABLET PO SCH ×2 (09:16→20:43)
[2018-05-09] MEDS: METOPROLOL SUCCINATE 25 MG TABLET PO SCH ×2 (09:16→20:43)
[2018-05-09] MEDS: LISINOPRIL 20 MG TABLET PO SCH ×2 (09:16→20:43)
[2018-05-09] MEDS: THIAMINE 100 MG TABLET PO SCH (09:16)
[2018-05-09] MEDS: SODIUM CHLORIDE FLUSH 0.9% 10 ML SYRINGE IVP SCH ×2 (09:19→17:26)
[2018-05-09] MEDS: ENOXAPARIN 40 MG/0.4 ML SYRINGE SUBQ SCH ×2 (09:19→10:30)
--- NOTE | 2018-05-09 17:25 | PROVIDER PROGRESS NOTE ---
Assessment/Plan - Problem List (1) Alcohol withdrawal delirium, acute, hyperactive Assessment/Plan: Today is the first day that he converses normally and also has improved memory. He is able to tell me today that he has had possibly 8 previous episodes of hospitalization for alcohol withdrawal delerium, the longest hospitalization was 2 mos. Will ask for Social Work mental analiarodolfo lunaregina for recommendations about detox or psych treatment. He can come out of ICU to a MedSur bed and be off 1:1 observation, which was ordered for agitation and not for suicidal ideations. (2) HTN (hypertension) Qualifiers: Hypertension type: essential hypertension Qualified Code(s): I10 - Essential (primary) hypertension Assessment/Plan: Better control with increased meds and less agitated condition. Monitor VS less often out of ICU. - Current Meds Current Meds: Current Medications Generic Name Dose Route Start Last Admin Trade Name Freq PRN Reason Stop Dose Admin Acetaminophen 650 mg 05/02/18 11:56 05/04/18 17:20 Tylenol PO 650 mg Q4HR PRN Administration Pain 1 to 4 Clonidine HCl 1 patch 05/08/18 11:00 05/08/18 10:53 [id number]-Zhs-4 TOP 1 patch Q7D SAVANA Administration Enoxaparin Sodium 40 mg 05/05/18 09:00 05/09/18 10:30 Lovenox SUBQ Not Given DAILY SAVANA Famotidine 20 mg 05/06/18 21:00 05/09/18 09:16 Pepcid PO 20 mg BID SAVANA Administration Haloperidol 1 mg 05/06/18 22:25 05/08/18 09:07 Haldol Inj IVP 1 mg Q1HR PRN Administration Agitation Labetalol HCl 10 mg 05/06/18 23:59 05/08/18 11:00 Trandate Syringe IVP 10 mg Q8HR PRN Administration SBP>165 Lisinopril 20 mg 05/08/18 21:00 05/09/18 09:16 Zestril PO 20 mg BID SAVANA Administration Lorazepam 1 mg 05/03/18 12:33 05/08/18 09:29 Ativan Inj (Vial) IVP 1 mg Q2H PRN Administration Agitation Lorazepam 0.5 mg 05/08/18 12:00 05/09/18 12:36 Ativan PO 0.5 mg Q6H SAVANA Administration Metoprolol Succinate 50 mg 05/08/18 21:00 05/09/18 09:16 Toprol Xl PO 50 mg BID SAVANA Administration Polyethylene Glycol 17 gm 05/03/18 09:00 05/09/18 08:46 Miralax PO Not Given DAILY SAVANA Multivit/Folic Acid/Iron 1 tab 05/05/18 09:00 05/09/18 09:16 Trinatal Rx 1 PO 1 tab DAILY SAVANA Administration Sodium Chloride 10 ml 05/02/18 11:56 05/08/18 09:07 Normal Saline Flush 0.9% IVP 10 ml PRN PRN Administration NEEDED PER PROVIDER ORDERS Sodium Chloride 10 ml 05/02/18 17:00 05/09/18 09:19 Normal Saline Flush 0.9% IVP 10 ml 0100,0900,1700 SAVANA Administration Thiamine HCl 100 mg 05/05/18 09:00 05/09/18 09:16 Vitamin B-1 PO 100 mg DAILY SAVANA Administration - Lab Result Fish Bone Diagrams: 05/06/18 04:54 05/06/18 04:54 - Additional Planning My Orders: My Active Orders 05/08/18 16:32 Heat [Cold / Heat Application] [RC] PRN 05/08/18 21:00 Lisinopril [Zestril] 20 mg PO BID Metoprolol Succinate [Toprol Xl] 50 mg PO BID 05/09/18 Social Work Consult [CONS] Routine Subjective - Subjective Patient Reports: Feeling Better, Other (Walking in hallway, using a walker, does not turn his neck from side to side normally) Objective Vital Signs: Vital Signs - 24 hr 05/08/18 05/08/18 05/08/18 18:00 19:00 19:59 Temperature 36.7 C Heart Rate [ 96 90 77 Monitoring electrodes] Respiratory 16 15 16 Rate Blood Pressure 128/99 H 133/108 H 150/107 H [Right Brachial artery] O2 Saturation 96 96 99 05/08/18 05/09/18 05/09/18 23:52 06:00 09:14 Temperature 36.3 C L 37.1 C Heart Rate [ 67 77 109 H Monitoring electrodes] Respiratory 18 18 20 Rate Blood Pressure 153/91 H 133/95 H 130/95 H [Right Brachial artery] O2 Saturation 98 97 96 05/09/18 05/09/18 12:00 14:31 Temperature 37.1 C Heart Rate [ 96 93 Monitoring electrodes] Respiratory 19 Rate Blood Pressure 98/76 [Right Brachial artery] O2 Saturation 98 Oxygen O2 Source Room air I&O (Last 24 Hrs): Intake and Output Totals x24h 05/07/18 05/08/18 05/09/18 23:59 23:59 23:59 Intake Total 1000 1510 1075 Output Total 950 1100 300 Balance 50 410 775 General: Alert, Oriented x3 HEENT: Mucous membr. moist/pink Neck: Supple, No JVD Neuro: Non Focal, Other (Speech is better, crying several times today) Cardiovascular: Regular rate, No murmurs Respiratory: No respiratory distress, Breath sounds nml Abdomen: Soft Extremities: No edema - Results Results: Laboratory Results WBC 6.4 x10^3/uL (4.8-10.8) 05/06/18 04:54 RBC 3.32 10^6/uL (4.70-6.10) L 05/06/18 04:54 Hgb 11.4 g/dL (14.0-18.0) L 05/06/18 04:54 Hct 32.9 % (42.0-52.0) L 05/06/18 04:54 MCV 99.0 fL (80.0-94.0) H 05/06/18 04:54 MCH 34.3 pg (27.0-31.0) H 05/06/18 04:54 MCHC 34.6 g/dL (32.0-36.0) 05/06/18 04:54 RDW 13.7 % (12.0-15.0) 05/06/18 04:54 Plt Count 170 10^3/uL (130-450) 05/06/18 04:54 MPV 7.6 fL (7.4-11.4) 05/06/18 04:54 Neut # (Auto) 3.7 10^3/uL (1.5-6.6) 05/06/18 04:54 Lymph # (Auto) 1.7 10^3/uL (1.5-3.5) 05/06/18 04:54 [place] # (Auto) 0.8 10^3/uL (0.0-1.0) 05/06/18 04:54 Eos # (Auto) 0.2 10^3/uL (0.0-0.7) 05/06/18 04:54 Baso # (Auto) 0.0 10^3/uL (0.0-0.1) 05/06/18 04:54 Absolute Nucleated RBC 0.01 x10^3/uL 05/06/18 04:54 Nucleated RBC % 0.1 /100WBC 05/06/18 04:54 PT 11.5 secs (9.9-12.6) 05/02/18 09:10 INR 1.0 (0.8-1.2) 05/02/18 09:10 Sodium 140 mmol/L (135-145) 05/06/18 04:54 Potassium 3.9 mmol/L (3.5-5.0) 05/06/18 04:54 Chloride 113 mmol/L (101-111) H 05/06/18 04:54 Carbon Dioxide 22 mmol/L (21-32) 05/06/18 04:54 Anion Gap 5.0 (6-13) L 05/06/18 04:54 BUN 5 mg/dL (6-20) L 05/06/18 04:54 Creatinine 0.8 mg/dL (0.6-1.2) 05/06/18 04:54 Estimated GFR (MDRD) 101 (>89) 05/06/18 04:54 Glucose 97 mg/dL (70-100) 05/06/18 04:54 Calcium 8.4 mg/dL (8.5-10.3) L 05/06/18 04:54 Magnesium 2.3 mg/dL (1.7-2.8) 05/03/18 07:13 Total Bilirubin 0.6 mg/dL (0.2-1.0) 05/06/18 04:54 AST 22 IU/L (10-42) 05/06/18 04:54 ALT 18 IU/L (10-60) 05/06/18 04:54 Alkaline Phosphatase 41 IU/L (42-121) L 05/06/18 04:54 Ammonia < 10.0 umol/L (7-35) 05/07/18 00:10 Total Protein 5.8 g/dL (6.7-8.2) L 05/06/18 04:54 Albumin 3.4 g/dL (3.2-5.5) 05/06/18 04:54 Globulin 2.4 g/dL (2.1-4.2) 05/06/18 04:54 Albumin/Globulin Ratio 1.4 (1.0-2.2) 05/06/18 04:54 Lipase 60 U/L (22-51) H 05/02/18 09:10 Urine Color YELLOW 05/02/18 13:45 Urine Clarity CLEAR (CLEAR) 05/02/18 13:45 Urine pH 6.0 PH (5.0-7.5) 05/02/18 13:45 Ur Specific [place] <=1.005 (1.002-1.030) 05/02/18 13:45 Urine Protein NEGATIVE mg/dL (NEGATIVE) 05/02/18 13:45 Urine Glucose (UA) NEGATIVE mg/dL (NEGATIVE) 05/02/18 13:45 Urine Ketones NEGATIVE mg/dL (NEGATIVE) 05/02/18 13:45 Urine Occult Blood NEGATIVE (NEGATIVE) 05/02/18 13:45 Urine Nitrite NEGATIVE (NEGATIVE) 05/02/18 13:45 Urine Bilirubin NEGATIVE (NEGATIVE) 05/02/18 13:45 Urine Urobilinogen 0.2 (NORMAL) E.U./dL (NORMAL) 05/02/18 13:45 Ur Leukocyte Esterase NEGATIVE (NEGATIVE) 05/02/18 13:45 Ur Microscopic Review NOT INDICATED 05/02/18 13:45 Urine Culture Comments NOT INDICATED 05/02/18 13:45 Urine Opiates Screen NEGATIVE (NEGATIVE) 05/08/18 13:15 Ur Oxycodone Screen NEGATIVE (NEGATIVE) 05/08/18 13:15 Urine Methadone Screen NEGATIVE (NEGATIVE) 05/08/18 13:15 Ur Propoxyphene Screen NEGATIVE (NEGATIVE) 05/08/18 13:15 Ur Barbiturates Screen NEGATIVE (NEGATIVE) 05/08/18 13:15 Ur Tricyclics Screen NEGATIVE (NEGATIVE) 05/08/18 13:15 Ur Phencyclidine Scrn NEGATIVE (NEGATIVE) 05/08/18 13:15 Ur Amphetamine Screen NEGATIVE (NEGATIVE) 05/08/18 13:15 U Methamphetamines Scrn NEGATIVE (NEGATIVE) 05/08/18 13:15 U Benzodiazepines Scrn POSITIVE (NEGATIVE) H 05/08/18 13:15 Urine Cocaine Screen NEGATIVE (NEGATIVE) 05/08/18 13:15 U Cannabinoids Screen NEGATIVE (NEGATIVE) 05/08/18 13:15 Ethyl Alcohol < 5.0 mg/dL 05/02/18 09:40 - Procedures Procedures: Procedures ALCOHOL DETOXIFICATION (07/14/13) Sepsis Event Note (H) - Evaluation Current Stage of Sepsis: Ruled out
[2018-05-10] MEDS: LORazepam 0.5 MG TABLET PO SCH ×3 (00:54→11:30)
[2018-05-10] MEDS: SODIUM CHLORIDE FLUSH 0.9% 10 ML SYRINGE IVP SCH ×2 (00:58→08:27)
[2018-05-10] MEDS: FLUTICASONE NASAL SPRAY NAS SCH ×2 (07:09→07:16)
--- NOTE | 2018-05-10 07:22 | PROVIDER PROGRESS NOTE ---
Subjective - Prog Note Date Prog Note Date: 05/10/18 Prog Note Time: 07:19 - Subjective Pt reports feeling: Improved Subjective: overnight there were no events. Vitals have been stable with no hypertension, no tachycardia, no fever. Current Medications - Current Medications Current Medications: Active Medications Acetaminophen (Tylenol) 650 mg PO Q4HR PRN PRN Reason: Pain 1 to 4 Last Admin: 05/04/18 17:20 Dose: 650 mg Clonidine HCl (Hywfcmfl-Amw-5) 1 patch TOP Q7D [facility] Last Admin: 05/08/18 10:53 Dose: 1 patch Enoxaparin Sodium (Lovenox) 40 mg SUBQ DAILY [facility] Last Admin: 05/09/18 10:30 Dose: Not Given Famotidine (Pepcid) 20 mg PO BID [facility] Last Admin: 05/09/18 20:43 Dose: 20 mg Fluticasone Propionate (Flonase) 1 sprays [place] DAILY [facility] Last Admin: 05/10/18 07:16 Dose: Not Given Haloperidol (Haldol Inj) 1 mg IVP Q1HR PRN PRN Reason: Agitation Last Admin: 05/08/18 09:07 Dose: 1 mg Labetalol HCl (Trandate Syringe) 10 mg IVP Q8HR PRN PRN Reason: SBP>165 Last Admin: 05/08/18 11:00 Dose: 10 mg Lisinopril (Zestril) 20 mg PO BID [facility] Last Admin: 05/09/18 20:43 Dose: 20 mg Lorazepam (Ativan Inj (Vial)) 1 mg IVP Q2H PRN PRN Reason: Agitation Last Admin: 05/08/18 09:29 Dose: 1 mg Lorazepam (Ativan) 0.5 mg PO Q6H [facility] Last Admin: 05/10/18 06:01 Dose: 0.5 mg Metoprolol Succinate (Toprol Xl) 50 mg PO BID [facility] Last Admin: 05/09/18 20:43 Dose: 50 mg Polyethylene Glycol (Miralax) 17 gm PO DAILY [facility] Last Admin: 05/09/18 08:46 Dose: Not Given Multivit/Folic Acid/Iron (Trinatal Rx 1) 1 tab PO DAILY [facility] Last Admin: 05/09/18 09:16 Dose: 1 tab Sodium Chloride (Normal Saline Flush 0.9%) 10 ml IVP PRN PRN PRN Reason: NEEDED PER PROVIDER ORDERS Last Admin: 05/08/18 09:07 Dose: 10 ml Sodium Chloride (Normal Saline Flush 0.9%) 10 ml IVP 0100,0900,1700 [facility] Last Admin: 05/10/18 00:58 Dose: 10 ml Thiamine HCl (Vitamin B-1) 100 mg PO DAILY [facility] Last Admin: 05/09/18 09:16 Dose: 100 mg Gabapentin 600 mg PO TID 07/13/16 Lisinopril 40 mg PO DAILY 05/02/18 Propranolol HCl 20 mg PO TID 05/02/18 hydroCHLOROthiazide [Hydrochlorothiazide] 25 mg PO DAILY 05/02/18 Objective - Vital Signs/Intake & Output Reviewed Vital Signs: Yes Vital Signs: Vital Signs x48h Temp Pulse Resp BP Pulse Ox 05/10/18 06:04 36.5 C 83 18 110/75 99 05/10/18 00:40 36.5 C 61 18 130/96 H 97 Intake & Output: Intake & Output 05/07/18 05/08/18 05/09/18 05/10/18 23:59 23:59 23:59 23:59 Intake Total 1000 1510 1525 400 Output Total 950 1100 300 Balance 50 410 1225 400 - Lab Results Fish Bones: 05/06/18 04:54 05/06/18 04:54 ABX Reporting Has patient been on IV antibiotics over the past 48 hours?: No Sepsis Event Note (H) - Evaluation Current Stage of Sepsis: Ruled out
[2018-05-10 08:07] VITALS: BP 132/91
[2018-05-10] MEDS: ENOXAPARIN 40 MG/0.4 ML SYRINGE SUBQ SCH (08:26)
[2018-05-10] MEDS: METOPROLOL SUCCINATE 25 MG TABLET PO SCH (08:26)
[2018-05-10] MEDS: PRENATAL VITAMIN TABLET PO SCH (08:26)
[2018-05-10] MEDS: THIAMINE 100 MG TABLET PO SCH (08:26)
[2018-05-10] MEDS: LISINOPRIL 20 MG TABLET PO SCH (08:26)
[2018-05-10] MEDS: FAMOTIDINE 20 MG TABLET PO SCH (08:26)
[2018-05-10] MEDS: POLYETHYLENE GLYCOL 3350 17 GM PACKET PO SCH (08:27)
[2018-05-10] MEDS ORDERED: FLUTICASONE NASAL SPRAY NAS SCH (09:00)
--- NOTE | 2018-05-10 09:31 | Discharge Plan ---
Discharge Plan Disposition: 01 Home, Self Care Condition: Stable Prescriptions: LORazepam [Ativan] 1 mg PO DAILY PRN #7 tablet PRN Reason: Agitation Diet: Regular Activity Restrictions: No Restrictions Shower Restrictions: No Driving Restrictions: No Additional Instructions or Follow Up instructions: Unfortunately you were admitted for alcohol withdrawal. You became quite belligerent and altered in your mental status. You required sedation, wrist restraints, and sedation to get you through this. We also needed to give you extra blood pressure medicine. You are now through the worst of it. You are eating. Ambulating in your room normally. You have asked for Ativan once a day. We are giving you 1 tablet a day until you see Drea Mitchell in follow-up in the next week. You have assured me that you have a close network of support. You are in Alcoholics Anonymous and you have a sponsor. You also have friends. You have promised that you will try and not to drink anymore. Please take a daily multivitamin as well as daily thiamine. In drinking, you become folate deficient. 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 Make sure you take these vitamins daily. No Smoking: If you smoke, Please STOP! Call for help. Follow-up with: Drea Mitchell ARNP [Primary Care Provider] -
--- NOTE | 2018-05-10 11:28 | DISCHARGE SUMMARY ---
Discharge Summary Admit Date: 05/02/18 Discharge Date: 05/10/18 Discharging Provider: Fauzia Mcbride MD Primary Care Provider: TRIP Welsh Code Status: Attempt Resuscitation Condition at Discharge: Stable Discharge Disposition: 01 Home, Self Care - DIAGNOSES Discharge Diagnoses with Status of Each Condition: 1. Alcohol withdrawal delirium, acute, hyperactive. Resolved 2. Acute hyponatremia, improved but still present 3. Hypokalemia, resolved 4. Alcohol abuse 5. Hypertension 6. Dehydration 7. Elevated bilirubin - HPI History of Present Illness: He is a 52-year-old white male who has a previous history of alcohol abuse, and is a current alcohol user. He started increased April 25, drinking on and by April 28 was drinking quite heavily. He did not define what "heavily" meant. His last drink was 2 days ago. He lives with his mother, she has dementia, and he takes care of her. He started hallucinating cats that were in the house, he also saw people standing in the porch but there were no people. His mom called EMS and he was brought to the emergency room. He denies chest pain, headache, shortness of breath. He was mildly hypertensive at 158/131. Afebrile. Respirations 16. Pulse 97 and oxygenating normally on room air. He was not diaphoretic. Motor exam was normal. He was brought into the hospital for probable alcohol withdrawal that was in his early stages. His sodium was 119, potassium 3, BUN 30, creatinine 1.2, bilirubin 1.5, and white cell count 12.3. - CONSULTS | PROCEDURES Procedures: 1. Head CT. Stable appearance of the brain compared to July 14, 2013. No acute findings. 2. Toxicology negative for all substances. Ethyl alcohol level less than 5. 3. Precedex drip stopped and changed to Ativan drip because of bradycardia - HOSPITAL COURSE Hospital Course: The patient was placed on MedSurg. And started on CIWA protocol with Librium and Ativan. As the hours progressed he became more agitated and he was transferred to the ICU and placed on Ativan drip. By the evening of the he was very combative, delirious in spite of Ativan drip. He was given Geodon and then switched to Precedex drip. While on the Precedex drip May 05, he became very bradycardic into the 30s and the drip was stopped and he was replaced back on the Ativan drip with Librium. Sedation was achieved. However every time he woke up he was still delirious and combative. He remembers being in restraints and is adamant that 100 pound weights were used on his arms to keep him sedated and he did not like that. Bradycardia with the Precedex resolved. EKG showed sinus bradycardia with a prolonged QT. Hyponatremia was felt to be from hydrochlorothiazide as well as lack of p.o. intake. He was felt to be mildly dehydrated and was hydrated with 0.9 normal saline. Sodium went from 126-140 on the day of discharge. Bilirubin was initially elevated 1.5 and was down to 0.6 on the day of discharge. AST was mildly elevated at 44 and was down to 22. ALT was normal at 27 on admission and down to 18 at discharge. He is felt to have mild abnormalities of his liver enzymes from his chronic alcohol abuse but not acute alcoholic hepatitis. Ammonia level was less than 10. Potassium started at 3.0 and was supplemented. By the time of discharge with IV supplementation and oral supplementation potassium was 3.9 at discharge. While in the ICU he was on a D5 drip and glucose did go up to 119 max but was back down to 97 by May 06. He was given a banana bag with thiamine and folate. Hypertension was controlled with labetalol IV, and a clonidine patch. His highest blood pressure was 187/116. By the time this gentleman woke up, his blood pressure was stable and no longer requiring large doses of antihypertensives. On the day of discharge was 132/91 and his usual home medications of lisinopril and propranolol and hydrochlorothiazide. I would recommend that his BMP be checked in the next week to make sure his hyponatremia is not returning on the hydrochlorothiazide. I have also requested that he stay on the vitamin and thiamine in the outpatient setting. He says that he has an excellent support group at home. He is a member of Alcoholics Anonymous and does have a sponsor. He also sees other support groups. He also states that his friend friends are very supportive of him stopping drinking as well. He is adamant that he will not drink again. 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 We wanted to make sure his mom was taking care of while he was in the hospital these 9 days. He was sent home on Ativan 1 mg a day, #7. If he needs further refills have asked him to contact his primary care provider. - ALLERGIES Allergies/Adverse Reactions: Allergies Allergy/AdvReac Type Severity Reaction Status Date / Time Penicillins Allergy Mild Unknown Verified 05/02/18 08:24 - MEDICATIONS Home Medications: Ambulatory Orders Medication Instructions Recorded Confirmed Gabapentin 600 mg PO TID 07/13/16 05/02/18 Lisinopril 40 mg PO DAILY 05/02/18 05/02/18 Propranolol HCl 20 mg PO TID 05/02/18 05/02/18 hydroCHLOROthiazide 25 mg PO DAILY 05/02/18 05/02/18 [Hydrochlorothiazide] LORazepam [Ativan] 1 mg PO DAILY PRN #7 tablet 05/10/18 Vitamin [Trinatal Rx 1] 1 tab PO DAILY tablet 05/10/18 Thiamine [Vitamin B-1] 100 mg PO DAILY tablet 05/10/18 - PHYSICAL EXAM AT DISCHARGE General Appearance: positive: No acute distress, Alert Eyes Bilateral: positive: PERRL ENT: positive: Pharynx nml Neck: positive: No JVD Respiratory: positive: Chest non-tender. negative: Wheezes, Rales, Rhonchi Cardiovascular: positive: Regular rate & rhythm. negative: Tachycardia, Systolic murmur, Gallop/S4, Friction rub Peripheral Pulses: positive: 1+ Abdomen: positive: Non-tender, No organomegaly, Nml bowel sounds, No distention Skin: positive: Warm, Dry Extremities: positive: Full ROM, No pedal edema Neurologic/Psychiatric: positive: Oriented x3, CN's nml (2-12), Motor nml, Sensation nml, Other (He is ambulating in his room, anxious to get out of here, no ataxia. Tearful because he wishes that he could just stop drinking and not keep on doing this.) Reflexes: Bicep (R): 2+, Bicep (L): 2+, Knee (R): 2+, Knee (L): 2+, Ankle (R): 0, Ankle (L): 0 Babinski Reflex: Right: Down, Left: Down - LABS Result Diagrams: 05/06/18 04:54 05/06/18 04:54 - TIME SPENT Time Spent in Discharge (Minutes): 40
== END 2018-05-10 12:43 | disposition home or self-care (01) | DRG 897 ==
LOC: ED 08:16 → MS2 11:56 → ICU 18:21 → MS2 05-09 13:48 → ICU 05-09 13:50 → MS2 05-09 17:50
PROVIDERS: ADMIT Nurse Practitioner Gerontology; ATTEND Specialist
DX: F10.231 Alcohol dependence with withdrawal delirium (principal); E87.1 Hypo-osmolality and hyponatremia; E87.6 Hypokalemia; E86.0 Dehydration; T50.2X5A Adverse effect of carbonic-anhydrase inhibitors, benzothiadiazides and other diuretics, initial encounter; R00.1 Bradycardia, unspecified; R06.81 Apnea, not elsewhere classified; T42.6X5A Adverse effect of other antiepileptic and sedative-hypnotic drugs, initial encounter; Y92.230 Patient room in hospital as the place of occurrence of the external cause; I10 Essential (primary) hypertension; G25.0 Essential tremor; F17.210 Nicotine dependence, cigarettes, uncomplicated; Y90.0 Blood alcohol level of less than 20 mg/100 ml; Z78.1 Physical restraint status; Z79.899 Other long term (current) drug therapy; Z63.6 Dependent relative needing care at home
CPT/HCPCS: 36415; 70450; 80053; 80306; 80320; 81001; 81003; 82140; 83690; 83735; 85025; 85610; 87086; 87150; 93005; 96360; 99284

== ENCOUNTER 2018-07-06 10:47 | Outpatient (CLI) | payer MEDICAID ==
[2018-07-06 17:40] LABS: BASOPHILS % (AUTO) 0.5 %; EOSINOPHILS # (AUTO) 0.1 10^3/uL (0.0-0.7); EOSINOPHILS % (AUTO) 1.1 %; HGB - HEMOGLOBIN 14.4 g/dL (14.0-18.0); LYMPHOCYTES # (AUTO) 1.6 10^3/uL (1.5-3.5); LYMPHOCYTES % (AUTO) 27.6 %; MEAN CORPUSCULAR HEMOGLOBIN 33.3 pg (27.0-31.0); MEAN CORPUSCULAR HGB CONC 33.3 g/dL (32.0-36.0); MEAN CORPUSCULAR VOLUME 99.9 fL (80.0-94.0); MEAN PLATELET VOLUME 8.1 fL (7.4-11.4); MONOCYTES # (AUTO) 0.6 10^3/uL (0.0-1.0); MONOCYTES % (AUTO) 9.5 %; NEUTROPHILS # (AUTO) 3.6 10^3/uL (1.5-6.6); NEUTROPHILS % (AUTO) 61.3 %; PLT - PLATELET COUNT 276 10^3/uL (130-450); RED BLOOD COUNT 4.32 10^6/uL (4.70-6.10); RED CELL DISTRIBUTION WIDTH 14.5 % (12.0-15.0); WHITE BLOOD COUNT 5.8 x10^3/uL (4.8-10.8)
[2018-07-06 18:10] LABS: ALBUMIN 4.8 g/dL (3.2-5.5); ALBUMIN/GLOBULIN RATIO 1.8 (1.0-2.2); ALKALINE PHOSPHATASE 50 IU/L (42-121); ALT ALANINE AMINOTRANSFERASE 24 IU/L (10-60); AST ASPARTATE AMINOTRANSFERASE 25 IU/L (10-42); BILIRUBIN,TOTAL 1.1 mg/dL (0.2-1.0); BUN - BLOOD UREA NITROGEN 15 mg/dL (6-20); CALCIUM 9.6 mg/dL (8.5-10.3); CARBON DIOXIDE - CO2 25 mmol/L (21-32); CHLORIDE 102 mmol/L (101-111); CHOL/HDL RATIO 4.7 (<5.0); CHOLESTEROL 267 mg/dL; CREATININE 0.9 mg/dL (0.6-1.2); GFR - MDRD 88 (>89); GLUCOSE 119 mg/dL (70-100); HDL CHOLESTEROL 57 mg/dL; LDL CHOLESTEROL,CALCULATED 174 mg/dL; LDL/HDL RATIO 3.1 (<3.6); SODIUM 136 mmol/L (135-145); TOTAL PROTEIN 7.5 g/dL (6.7-8.2); URIC ACID 6.2 mg/dL (2.6-7.2); VLDL CHOLESTEROL 36 mg/dL
[2018-07-06 18:11] LABS: CRP - C-REACTIVE PROTEIN < 1.0 mg/dL (0-1.0)
[2018-07-06 20:12] LABS: RHEUMATOID FACTOR NEGATIVE (Negative)
== END 2018-07-06 10:48 | disposition home or self-care (01) ==
LOC: LAB.F 10:47
PROVIDERS: ATTEND Nurse Practitioner Family
DX: I10 Essential (primary) hypertension (principal); E78.5 Hyperlipidemia, unspecified; M79.643 Pain in unspecified hand
CPT/HCPCS: 36415; 80050; 80061; 83721; 84550; 85651; 86038; 86140; 86200; 86430

== ENCOUNTER 2018-07-08 13:16 | Outpatient (CLI) | payer MEDICAID | END 2018-07-08 13:17 | disposition home or self-care (01) | LOC: LAB.F 13:16 | PROVIDERS: ATTEND Nurse Practitioner Family | DX: D53.9 Nutritional anemia, unspecified (principal) | CPT/HCPCS: 36415; 82607; 82746; 82977 ==

== ENCOUNTER 2019-02-16 10:56 | Emergency (ER) | payer MEDICAID ==
[2019-02-16 12:35] VITALS: BP 159/88
[2019-02-16 12:57] LABS: BASOPHILS % (AUTO) 0.4 %; EOSINOPHILS % (AUTO) 0.2 %; HGB - HEMOGLOBIN 14.7 g/dL (14.0-18.0); LYMPHOCYTES # (AUTO) 1.5 10^3/uL (1.5-3.5); LYMPHOCYTES % (AUTO) 26.8 %; MEAN CORPUSCULAR HEMOGLOBIN 33.1 pg (27.0-31.0); MEAN CORPUSCULAR HGB CONC 36.3 g/dL (32.0-36.0); MEAN CORPUSCULAR VOLUME 91.2 fL (80.0-94.0); MEAN PLATELET VOLUME 9.2 fL (7.4-11.4); MONOCYTES # (AUTO) 0.5 10^3/uL (0.0-1.0); MONOCYTES % (AUTO) 9.9 %; NEUTROPHILS # (AUTO) 3.4 10^3/uL (1.5-6.6); PLT - PLATELET COUNT 236 10^3/uL (130-450); RED BLOOD COUNT 4.44 10^6/uL (4.70-6.10); RED CELL DISTRIBUTION WIDTH 12.3 % (12.0-15.0); WHITE BLOOD COUNT 5.4 x10^3/uL (4.8-10.8)
[2019-02-16 13:10] LABS: ALBUMIN 4.6 g/dL (3.2-5.5); ALBUMIN/GLOBULIN RATIO 1.6 (1.0-2.2); BILIRUBIN,TOTAL 0.5 mg/dL (0.2-1.0); CALCIUM 9.1 mg/dL (8.5-10.3); CREATININE 0.7 mg/dL (0.6-1.2); TOTAL PROTEIN 7.4 g/dL (6.7-8.2)
--- NOTE | 2019-02-16 13:14 | ED Physician Documentation ---
History of Present Illness - Stated complaint Stated Complaint: ETOH - Chief complaint Chief Complaint: General - History obtained from History obtained from: Patient, Family (Mother), Friend - Additonal information Additional information: The patient is a 53-year-old male who states, "I have problems with alcohol." He has a history of alcoholism, and is undergone inpatient alcohol treatment 2 years ago at [place]. He normally drinks 2 or 3 drinks each evening, but 4 days ago began drinking heavily again. He presents now concerned about alcohol withdrawal symptoms if he discontinues alcohol. He has had bad extremes with DTs in the past, but denies alcohol withdrawal seizures. He lives with his mother who accompanies him in the emergency department, and also has a friend who accompanies him. They are willing to assist him through alcohol withdrawal. He denies abdominal pain, vomiting, or headache. Review of Systems Constitutional: denies: Fever Ears: denies: Tinnitus/ringing Nose: denies: Congestion Throat: denies: Sore throat Cardiac: denies: Chest pain / pressure Respiratory: denies: Dyspnea, Cough GI: denies: Abdominal Pain, Nausea, Vomiting Skin: denies: Rash Musculoskeletal: denies: Extremity swelling Neurologic: denies: Focal weakness, Numbness, Headache PD PAST MEDICAL HISTORY - Past Medical History Cardiovascular: High cholesterol, Arrhythmia Respiratory: Other Neuro: None Endocrine/Autoimmune: None GI: None : None HEENT: Chronic sinusitis Psych: Depression, Anxiety Musculoskeletal: None Derm: None - Past Surgical History Past Surgical History: No - Present Medications Home Medications: Ambulatory Orders Medication Instructions Recorded Confirmed Gabapentin 600 mg PO TID 07/13/16 05/02/18 Lisinopril 40 mg PO DAILY 05/02/18 05/02/18 Propranolol HCl 20 mg PO TID 05/02/18 05/02/18 hydroCHLOROthiazide 25 mg PO DAILY 05/02/18 05/02/18 [Hydrochlorothiazide] Vitamin [Trinatal Rx 1] 1 tab PO DAILY tablet 05/10/18 Thiamine [Vitamin B-1] 100 mg PO DAILY tablet 05/10/18 LORazepam [Lorazepam] 1 - 2 mg PO Q6HR PRN #20 tablet 02/16/19 Promethazine [Phenergan] 25 mg PO Q6H PRN #10 tab 02/16/19 - Allergies Allergies/Adverse Reactions: Allergies Allergy/AdvReac Type Severity Reaction Status Date / Time Penicillins Allergy Mild Unknown Verified 02/16/19 11:21 - Social History Does the pt smoke?: Yes Smoking Status: Current every day smoker Does the pt drink ETOH?: Yes Does the pt have substance abuse?: No - Immunizations Immunizations are current?: Yes - POLST Patient has POLST: No POLST Status: Full Code PD ED PE NORMAL - Vitals Vital signs reviewed: Yes (Hypertensive) - General General: Alert and oriented X 3, Well developed/nourished, Other (Odor of alcohol on his breath.) - HEENT HEENT: Atraumatic, PERRL, EOMI, Pharynx benign - Neck Neck: Supple, no meningeal sign, No JVD - Cardiac Cardiac: RRR - Respiratory Respiratory: No respiratory distress, Clear bilaterally - Abdomen Abdomen: Soft, Non tender, No organomegaly - Back Back: No CVA TTP - Derm Derm: No rash - Extremities Extremities: No edema, No calf tenderness / cord - Neuro Neuro: Alert and oriented X 3, No motor deficit, No sensory deficit Results - Vitals Vitals: Vital Signs - 24 hr 02/16/19 02/16/19 11:15 12:35 Temperature 36.8 C Heart Rate 86 82 Respiratory 22 15 Rate Blood Pressure 145/105 H 159/88 H O2 Saturation 99 96 Oxygen O2 Source Room air - Labs Labs: Laboratory Tests 02/16/19 02/16/19 12:15 12:30 WBC 5.4 RBC 4.44 L Hgb 14.7 Hct 40.5 L MCV 91.2 MCH 33.1 H MCHC 36.3 H RDW 12.3 Plt Count 236 MPV 9.2 Neut # (Auto) 3.4 Lymph # (Auto) 1.5 [place] # (Auto) 0.5 Eos # (Auto) 0.0 Baso # (Auto) 0.0 Absolute Nucleated RBC 0.00 Nucleated RBC % 0.0 Sodium 128 L Potassium 3.5 Chloride 90 L Carbon Dioxide 24 Anion Gap 14.0 H BUN 11 Creatinine 0.7 Estimated GFR (MDRD) 117 Glucose 108 H Calcium 9.1 Total Bilirubin 0.5 AST 35 ALT 27 Alkaline Phosphatase 45 Total Protein 7.4 Albumin 4.6 Globulin 2.8 Albumin/Globulin Ratio 1.6 Lipase 47 Ethyl Alcohol 237.7 PD MEDICAL DECISION MAKING - ED course Complexity details: reviewed results, re-evaluated patient, considered stiven manrique, d/w patient, d/w family ED course: The patient's presentation is consistent with alcohol intoxication, with history of long-term alcohol use. He is not having withdrawal symptoms at the moment, with an alcohol level of 237. He does want to discontinue his abuse of alcohol, but is concerned about alcohol withdrawal symptoms. He is being discharged with prescription for lorazepam to be administered by his mother or his friend. I discussed with him the importance of outpatient follow-up, as well as potentially worrisome signs or symptoms that should prompt reevaluation in the emergency department. Departure - Departure Disposition: 01 Home, Self Care Clinical Impression: Alcohol abuse Alcohol intoxication Qualifiers: Complication of substance-induced condition: uncomplicated Qualified Code(s): F10.920 - Alcohol use, unspecified with intoxication, uncomplicated Condition: Stable Instructions: ED Alcohol Intoxication, ED Withdrawal Alcohol Follow-Up: Liz Atkinson ARNP [Credentialed Staff Provider] - Prescriptions: LORazepam [Lorazepam] 1 - 2 mg PO Q6HR PRN #20 tablet PRN Reason: Anxiety Promethazine [Phenergan] 25 mg PO Q6H PRN #10 tab PRN Reason: Nausea / Vomiting Comments: Try to refrain from alcohol. Drink plenty of fluids. You can use lorazepam as prescribed if needed for withdrawal symptoms. You can use Phenergan as prescribed if needed for nausea. Follow-up with your primary physician within 1 week. Call to schedule appointment. Return to the emergency department if you develop persistent vomiting, increasing abdominal pain, or otherwise worsening symptoms.
== END 2019-02-16 13:40 | disposition home or self-care (01) ==
LOC: ED 10:56
DX: F10.229 Alcohol dependence with intoxication, unspecified (principal); Y90.7 Blood alcohol level of 200-239 mg/100 ml; F17.200 Nicotine dependence, unspecified, uncomplicated
CPT/HCPCS: 36415; 80053; 80320; 83690; 85025; 99283

== ENCOUNTER 2019-07-28 17:11 | Emergency (ER) | payer MEDICAID ==
[2019-07-28] MEDS ORDERED: SODIUM CHLORIDE 0.9% 1,000 ML IV ONE (17:31)
[2019-07-28] MEDS ORDERED: THIAMINE INJ 100 MG in SODIUM CHLORIDE 0.9% 50 ML IV STA (17:31)
--- NOTE | 2019-07-28 17:46 | ED Physician Documentation ---
<Jean-Claude Baptiste - Last Filed: 07/29/19 06:23> PD HPI MHE - Stated complaint Stated Complaint: HBD - Chief complaint Chief Complaint: MHE PD PAST MEDICAL HISTORY - Present Medications Home Medications: Ambulatory Orders Medication Instructions Recorded Confirmed Gabapentin 600 mg PO TID 07/13/16 05/02/18 Propranolol HCl 20 mg PO TID 05/02/18 05/02/18 hydroCHLOROthiazide 25 mg PO DAILY 05/02/18 05/02/18 [Hydrochlorothiazide] lisinopriL [Lisinopril] 40 mg PO DAILY 05/02/18 05/02/18 Vitamin [Trinatal Rx 1] 1 tab PO DAILY tablet 05/10/18 Thiamine [Vitamin B-1] 100 mg PO DAILY tablet 05/10/18 LORazepam [Lorazepam] 1 - 2 mg PO Q6HR PRN #20 tablet 02/16/19 Promethazine [Phenergan] 25 mg PO Q6H PRN #10 tab 02/16/19 Lorazepam [Ativan] 1 mg PO TID PRN #10 tablet 07/28/19 - Allergies Allergies/Adverse Reactions: Allergies Allergy/AdvReac Type Severity Reaction Status Date / Time Penicillins Allergy Mild Unknown Verified 07/28/19 17:23 PD MEDICAL DECISION MAKING - ED course Complexity details: other (06:25 patient signed out to me by dr martin. patient is clinically sober at this time, steady gait, clear speech, tolerated liquids. ) Departure - Departure Disposition: 01 Home, Self Care Clinical Impression: Alcohol intoxication Qualifiers: Complication of substance-induced condition: uncomplicated Qualified Code(s): F10.920 - Alcohol use, unspecified with intoxication, uncomplicated Condition: Good Instructions: ED Alcohol Intoxication Prescriptions: Lorazepam [Ativan] 1 mg PO TID PRN #10 tablet PRN Reason: Anxiety Comments: It is very important to get counseling and other treatment for your alcohol abuse anxiety and depression. Talk about this with your primary care physician. Return for new or worsening symptoms. Recommend that a nonalcoholic and sober family member keep the prescription for Ativan such that she do not misuse it. Discharge Date/Time: 07/29/19 06:56 <Faustino Martin - Last Filed: 07/29/19 07:17> PD HPI MHE - History obtained from History obtained from: Patient - History of Present Illness Primary symptom: Other (53-year-old gentleman presents by cab requesting help with alcohol detoxification. Over the last few days he has been drinking heavily, about a liter of vodka a day. He says he is doing this because he is depressed and anxious. No SI. He lives with his mother. Declines offers of inpatient treatment. Mostly says he wants a prescription for Ativan to help him with impending withdrawal.) Review of Systems Constitutional: denies: Fever, Chills Cardiac: denies: Chest pain / pressure, Palpitations Respiratory: denies: Dyspnea, Cough GI: denies: Abdominal Pain, Nausea, Vomiting, Diarrhea, Hematemesis, Bloody / black stool PD PAST MEDICAL HISTORY - Past Medical History Past Medical History: Yes Cardiovascular: High cholesterol, Arrhythmia Respiratory: Other Neuro: None Endocrine/Autoimmune: None GI: None : None HEENT: Chronic sinusitis Psych: Depression, Anxiety Musculoskeletal: None Derm: None - Past Surgical History Past Surgical History: No - Social History Does the pt smoke?: Yes Smoking Status: Current every day smoker Does the pt drink ETOH?: Yes Does the pt have substance abuse?: No - Immunizations Immunizations are current?: Yes - POLST Patient has POLST: No POLST Status: Full Code PD ED PE NORMAL - Vitals Vital signs reviewed: Yes - General General: Other (Cooperative ebullient behavior, slurred speech but not slow. Not confused.) - HEENT HEENT: PERRL, EOMI - Neck Neck: Supple, no meningeal sign, No bony TTP - Abdomen Abdomen: Soft, Non tender - Derm Derm: Normal color, Warm and dry - Extremities Extremities: No deformity, No tenderness to palpate, Normal ROM s pain, No edema, No calf tenderness / cord - Neuro Neuro: Alert and oriented X 3, No motor deficit, No sensory deficit, Normal speech Results - Vitals Vitals: Vital Signs - 24 hr 07/28/19 07/28/19 07/28/19 17:17 17:22 18:10 Temperature 37.2 C 37.2 C Heart Rate 124 H 124 H 86 Respiratory 20 20 20 Rate Blood Pressure 167/128 H 167/128 H 133/88 H O2 Saturation 99 99 97 07/28/19 07/29/19 07/29/19 21:00 00:34 05:10 Temperature 36.3 C L 36.4 C L Heart Rate 91 73 74 Respiratory 18 17 18 Rate Blood Pressure 100/76 100/85 H 138/101 H O2 Saturation 97 97 98 07/29/19 06:28 Temperature 36.3 C L Heart Rate 67 Respiratory 17 Rate Blood Pressure 124/78 O2 Saturation 98 Oxygen O2 Source Room air - Labs Labs: Laboratory Tests 07/28/19 07/28/19 07/28/19 17:21 17:49 17:49 WBC 6.3 RBC 4.82 Hgb 16.1 Hct 44.8 MCV 92.9 MCH 33.4 H MCHC 35.9 RDW 12.5 Plt Count 235 MPV 8.9 Neut # (Auto) 3.4 Lymph # (Auto) 2.2 [place] # (Auto) 0.6 Eos # (Auto) 0.0 Baso # (Auto) 0.0 Absolute Nucleated RBC 0.00 Nucleated RBC % 0.0 PT 10.6 INR 0.9 Sodium Potassium Chloride Carbon Dioxide Anion Gap BUN Creatinine Estimated GFR (MDRD) Glucose Calcium Total Bilirubin AST ALT Alkaline Phosphatase Total Protein Albumin Globulin Albumin/Globulin Ratio Lipase Urine Color YELLOW Urine Clarity CLEAR Urine pH 7.0 Ur Specific [place] <=1.005 Urine Protein NEGATIVE Urine Glucose (UA) NEGATIVE Urine Ketones NEGATIVE Urine Occult Blood NEGATIVE Urine Nitrite NEGATIVE Urine Bilirubin NEGATIVE Urine Urobilinogen 0.2 (NORMAL) Ur Leukocyte Esterase NEGATIVE Ur Microscopic Review NOT INDICATED Urine Culture Comments NOT INDICATED Salicylates Urine Opiates Screen NEGATIVE Ur Oxycodone Screen NEGATIVE Urine Methadone Screen NEGATIVE Ur Propoxyphene Screen NEGATIVE Acetaminophen Ur Barbiturates Screen NEGATIVE Ur Tricyclics Screen NEGATIVE Ur Phencyclidine Scrn NEGATIVE Ur Amphetamine Screen NEGATIVE U Methamphetamines Scrn NEGATIVE U Benzodiazepines Scrn NEGATIVE Urine Cocaine Screen NEGATIVE U Cannabinoids Screen NEGATIVE Ethyl Alcohol 07/28/19 17:49 WBC RBC Hgb Hct MCV MCH MCHC RDW Plt Count MPV Neut # (Auto) Lymph # (Auto) [place] # (Auto) Eos # (Auto) Baso # (Auto) Absolute Nucleated RBC Nucleated RBC % PT INR Sodium 137 Potassium 3.7 Chloride 96 L Carbon Dioxide 24 Anion Gap 17.0 H BUN 8 Creatinine 0.8 Estimated GFR (MDRD) 100 Glucose 116 H Calcium 9.3 Total Bilirubin 0.7 AST 56 H ALT 43 Alkaline Phosphatase 51 Total Protein 7.9 Albumin 5.2 Globulin 2.7 Albumin/Globulin Ratio 1.9 Lipase 46 Urine Color Urine Clarity Urine pH Ur Specific [place] Urine Protein Urine Glucose (UA) Urine Ketones Urine Occult Blood Urine Nitrite Urine Bilirubin Urine Urobilinogen Ur Leukocyte Esterase Ur Microscopic Review Urine Culture Comments Salicylates < 6.0 Urine Opiates Screen Ur Oxycodone Screen Urine Methadone Screen Ur Propoxyphene Screen Acetaminophen < 10 L Ur Barbiturates Screen Ur Tricyclics Screen Ur Phencyclidine Scrn Ur Amphetamine Screen U Methamphetamines Scrn U Benzodiazepines Scrn Urine Cocaine Screen U Cannabinoids Screen Ethyl Alcohol 361.9 PD MEDICAL DECISION MAKING - ED course ED course: 53-year-old gentleman presents intoxicated requesting prescription for Ativan for withdrawal. He is clearly not withdrawing at this juncture and his blood alcohol was quite elevated. As such as requested plan of just going home with a prescription Ativan at this juncture is inappropriate. He was administered some IV fluids and thiamine. He is happy to board in the department pending either social work evaluation or discharge in the morning with potential Ativan at that time. Departure - Departure Record reviewed to determine appropriate education?: Yes
[2019-07-28 17:54] LABS: BASOPHILS % (AUTO) 0.6 %; EOSINOPHILS % (AUTO) 0.2 %; HGB - HEMOGLOBIN 16.1 g/dL (14.0-18.0); LYMPHOCYTES # (AUTO) 2.2 10^3/uL (1.5-3.5); LYMPHOCYTES % (AUTO) 35.4 %; MEAN CORPUSCULAR HEMOGLOBIN 33.4 pg (27.0-31.0); MEAN CORPUSCULAR HGB CONC 35.9 g/dL (32.0-36.0); MEAN CORPUSCULAR VOLUME 92.9 fL (80.0-94.0); MEAN PLATELET VOLUME 8.9 fL (7.4-11.4); MONOCYTES # (AUTO) 0.6 10^3/uL (0.0-1.0); MONOCYTES % (AUTO) 9.4 %; NEUTROPHILS # (AUTO) 3.4 10^3/uL (1.5-6.6); NEUTROPHILS % (AUTO) 54.1 %; PLT - PLATELET COUNT 235 10^3/uL (130-450); RED BLOOD COUNT 4.82 10^6/uL (4.70-6.10); RED CELL DISTRIBUTION WIDTH 12.5 % (12.0-15.0); WHITE BLOOD COUNT 6.3 x10^3/uL (4.8-10.8)
[2019-07-28 18:04] LABS: INR 0.9 (0.8-1.2); PT - PROTHROMBIN TIME 10.6 secs (9.9-12.6)
[2019-07-28 18:10] LABS: ACETAMINOPHEN < 10 ug/mL (10-30); ALBUMIN 5.2 g/dL (3.2-5.5); ALBUMIN/GLOBULIN RATIO 1.9 (1.0-2.2); ALKALINE PHOSPHATASE 51 IU/L (42-121); ALT ALANINE AMINOTRANSFERASE 43 IU/L (10-60); AST ASPARTATE AMINOTRANSFERASE 56 IU/L (10-42); BILIRUBIN,TOTAL 0.7 mg/dL (0.2-1.0); BUN - BLOOD UREA NITROGEN 8 mg/dL (6-20); CALCIUM 9.3 mg/dL (8.5-10.3); CARBON DIOXIDE - CO2 24 mmol/L (21-32); CHLORIDE 96 mmol/L (101-111); CREATININE 0.8 mg/dL (0.6-1.2); GFR - MDRD 100 (>89); GLUCOSE 116 mg/dL (70-100); LIPASE 46 U/L (22-51); SALICYLATE < 6.0 mg/dL; SODIUM 137 mmol/L (135-145); TOTAL PROTEIN 7.9 g/dL (6.7-8.2)
[2019-07-28] MEDS ORDERED: KETOROLAC 30 MG/ML VIAL IVP STA (18:36)
[2019-07-28] MEDS ORDERED: PANTOPRAZOLE 40 MG VIAL IVP STA (18:36)
[2019-07-28 18:44] LABS: MUDS CUTOFF CONCENTRATIONS CUTOFF CONC BELOW:
[2019-07-28 18:46] LABS: BILIRUBIN,URINE NEGATIVE (NEGATIVE); GLUCOSE, URINE (UA) NEGATIVE (NEGATIVE); KETONES,URINE (UA) NEGATIVE (NEGATIVE); LEUKOCYTE ESTERASE, URINE NEGATIVE (NEGATIVE); NITRITE,URINE NEGATIVE (NEGATIVE); OCCULT BLOOD,URINE NEGATIVE (NEGATIVE); PROTEIN,URINE NEGATIVE (NEGATIVE); UROBILINOGEN,URINE 0.2 (NORMAL) E.U./dL (NORMAL)
[2019-07-28 18:59] LABS: CLARITY,URINE CLEAR (CLEAR)
[2019-07-28 19:00] LABS: AMPHETAMINE SCREEN,URINE NEGATIVE (NEGATIVE); BENZODIAZEPINES SCREEN, URINE NEGATIVE (NEGATIVE); COCAINE SCREEN URINE NEGATIVE (NEGATIVE); METHADONE SCREEN, URINE NEGATIVE (NEGATIVE); METHAMPHETAMINES SCREEN, URINE NEGATIVE (NEGATIVE); OPIATE SCREEN, URINE NEGATIVE (NEGATIVE); OXYCODONE SCREEN, URINE NEGATIVE (NEGATIVE); PROPOXYPHENE SCREEN, URINE NEGATIVE (NEGATIVE); TRICYCLIC ANTIDEPRESSANT,URINE NEGATIVE (NEGATIVE)
[2019-07-28] MEDS ORDERED: lisinopriL 5 MG TABLET PO STA (20:30)
[2019-07-28] MEDS ORDERED: PROPRANOLOL 10 MG TABLET PO STA (20:30)
[2019-07-28] MEDS ORDERED: hydroCHLOROthiazide 25 MG TABLET PO STA (20:30)
[2019-07-29] MEDS ORDERED: ONDANSETRON ODT 4 MG TABLET TL STA (00:26)
[2019-07-29 06:29] VITALS: BP 124/78
[2019-07-29] MEDS ORDERED: LORazepam 0.5 MG TABLET PO STA (06:30)
== END 2019-07-29 06:56 | disposition home or self-care (01) ==
LOC: ED 17:11
DX: F10.129 Alcohol abuse with intoxication, unspecified (principal)
CPT/HCPCS: 36415; 80053; 80306; 80307; 80320; 80329; 81003; 83690; 85025; 85610; 96365; 96375; 99283; 99284; A9270; J3411; J7040; Q0162; 81001; 87086

== ENCOUNTER 2019-11-01 15:42 | Outpatient (CLI) | payer MEDICAID | END 2019-11-01 15:43 | disposition critical access hospital (66) | LOC: EMS 15:42 | PROVIDERS: ATTEND Surgery | DX: R11.2 Nausea with vomiting, unspecified (principal); R06.02 Shortness of breath; R52 Pain, unspecified | CPT/HCPCS: A0425; A0427; A0999 ==

== ENCOUNTER 2019-11-01 16:15 | Emergency (ER) | payer MEDICAID ==
--- NOTE | 2019-11-01 16:28 | ED Physician Documentation ---
PD HPI NVD - Stated complaint Stated Complaint: VOMITING/DIZZY - History obtained from History obtained from: Patient, EMS - History of Present Illness Timing - onset: How many days ago (2) Timing - duration: Days (2) Timing - details: Abrupt onset, Still present Associated symptoms: Abdominal pain. No: Fever Contributing factors: Alcohol use (he says he is alcoholic and had been sober recently but started a new binge about 4-5 days ago. Onset upper abd pain and vomiting without hematemesis 2 days ago. Trying to drink some at times to limit withdrawal symptoms.). No: Sick contact, Bad food, Recent antibiotics Improved by: No: Vomiting Worsened by: Eating Similar symptoms before: Diagnosis (alcoholic gastritis in the past. Denies history of pancreatitis nor jaundice.) Recently seen: Not recently seen Review of Systems Constitutional: reports: Chills, Fatigue. denies: Fever, Myalgias Nose: denies: Rhinorrhea / runny nose, Congestion Throat: denies: Sore throat Cardiac: denies: Chest pain / pressure Respiratory: denies: Cough GI: reports: Abdominal Pain, Nausea, Vomiting. denies: Abdominal Swelling, Constipation, Diarrhea, Hematemesis, Bloody / black stool : denies: Dysuria, Frequency Neurologic: reports: Generalized weakness, Confused. denies: Focal weakness, Numbness, Altered mental status, Headache PD PAST MEDICAL HISTORY - Past Medical History Cardiovascular: High cholesterol, Arrhythmia Respiratory: Other Neuro: None Endocrine/Autoimmune: None GI: None : None HEENT: Chronic sinusitis Psych: Depression, Anxiety Musculoskeletal: None Derm: None - Past Surgical History Past Surgical History: No - Present Medications Home Medications: Ambulatory Orders Medication Instructions Recorded Confirmed Gabapentin 600 mg PO TID 07/13/16 05/02/18 Propranolol HCl 20 mg PO TID 05/02/18 05/02/18 hydroCHLOROthiazide 25 mg PO DAILY 05/02/18 05/02/18 [Hydrochlorothiazide] lisinopriL [Lisinopril] 40 mg PO DAILY 05/02/18 05/02/18 Vitamin [Trinatal Rx 1] 1 tab PO DAILY tablet 05/10/18 Thiamine [Vitamin B-1] 100 mg PO DAILY tablet 05/10/18 LORazepam [Lorazepam] 1 - 2 mg PO Q6HR PRN #20 tablet 02/16/19 Promethazine [Phenergan] 25 mg PO Q6H PRN #10 tab 02/16/19 Lorazepam [Ativan] 1 mg PO TID PRN #10 tablet 07/28/19 Famotidine 20 mg PO DAILY #30 tablet 11/01/19 LORazepam [Ativan] 1 mg PO Q6H PRN #25 tablet 11/01/19 Ondansetron Odt [Zofran] 4 mg TL Q6H PRN #10 tablet 11/01/19 - Allergies Allergies/Adverse Reactions: Allergies Allergy/AdvReac Type Severity Reaction Status Date / Time Penicillins Allergy Mild Unknown Verified 11/01/19 16:25 sertraline Allergy Unknown Verified 11/02/19 08:47 - Social History Does the pt smoke?: Yes Smoking Status: Current every day smoker Does the pt drink ETOH?: Yes Does the pt have substance abuse?: No - Immunizations Immunizations are current?: Yes - POLST Patient has POLST: No POLST Status: Full Code PD ED PE NORMAL - Vitals Vital signs reviewed: Yes - General General: Alert and oriented X 3, Well developed/nourished - HEENT HEENT: Ears normal, Pharynx benign. No: Moist mucous membranes - Neck Neck: Supple, no meningeal sign, No adenopathy - Cardiac Cardiac: RRR, No murmur - Respiratory Respiratory: Clear bilaterally - Abdomen Abdomen: Soft, Non distended, No organomegaly, Other (tender epigastric area. Not focally tender in RUQ. ). No: Normal bowel sounds (decreased) - Back Back: No CVA TTP - Derm Derm: Warm and dry. No: Normal color (somewhat pale) Results - Vitals Vitals: Vital Signs - 24 hr 11/01/19 11/01/19 11/01/19 16:25 16:29 19:30 Temperature 37.8 C H Heart Rate 88 92 Respiratory 18 16 Rate Blood Pressure 137/98 H 119/86 H O2 Saturation 98 98 11/01/19 20:52 Temperature Heart Rate 90 Respiratory 14 Rate Blood Pressure 124/88 H O2 Saturation 98 Oxygen O2 Source Room air - Labs Labs: Laboratory Tests 11/01/19 11/01/19 11/01/19 17:11 17:11 19:40 WBC 6.1 RBC 3.90 L Hgb 13.2 L Hct 36.3 L MCV 93.1 MCH 33.8 H MCHC 36.4 H RDW 12.8 Plt Count 167 MPV 9.3 Neut # (Auto) 4.3 Lymph # (Auto) 1.2 L [place] # (Auto) 0.5 Eos # (Auto) 0.0 Baso # (Auto) 0.0 Absolute Nucleated RBC 0.00 Nucleated RBC % 0.0 Sodium 129 L Potassium 3.3 L Chloride 91 L Carbon Dioxide 21 Anion Gap 17.0 H BUN 14 Creatinine 0.7 Estimated GFR (MDRD) 117 Glucose 121 H Calcium 9.0 Magnesium 1.6 L Total Bilirubin 1.1 H AST 60 H ALT 37 Alkaline Phosphatase 47 Total Protein 6.7 Albumin 4.1 Globulin 2.6 Albumin/Globulin Ratio 1.6 Lipase 83 H Urine Color YELLOW Urine Clarity CLEAR Urine pH 6.0 Ur Specific [place] 1.010 Urine Protein NEGATIVE Urine Glucose (UA) NEGATIVE Urine Ketones NEGATIVE Urine Occult Blood NEGATIVE Urine Nitrite NEGATIVE Urine Bilirubin NEGATIVE Urine Urobilinogen 0.2 (NORMAL) Ur Leukocyte Esterase NEGATIVE Ur Microscopic Review NOT INDICATED Urine Culture Comments NOT INDICATED Ethyl Alcohol 223.8 PD MEDICAL DECISION MAKING - ED course Complexity details: considered differential (most likely alcoholic gastritis. Can check labs to ensure lipase/LFTs are okay. Will give fluids/antiemetics/acid recudtion. He has had drinks today, but is still shaky, so some ativan. He says he wants to stop drinking again (had been sober and just recent binge) so asks for Ativan Rx. ), d/w patient Departure - Departure Disposition: 01 Home, Self Care Clinical Impression: Dehydration Acute gastritis without bleeding Qualifiers: Gastritis type: alcoholic Qualified Code(s): K29.20 - Alcoholic gastritis without bleeding Alcohol withdrawal Qualifiers: Complication of substance-induced condition: uncomplicated Qualified Code(s): F10.230 - Alcohol dependence with withdrawal, uncomplicated Condition: Stable Record reviewed to determine appropriate education?: Yes Instructions: ED Gastritis Follow-Up: Liz Atkinson ARNP [Primary Care Provider] - Prescriptions: Famotidine 20 mg PO DAILY #30 tablet LORazepam [Ativan] 1 mg PO Q6H PRN #25 tablet PRN Reason: Alcohol Withdrawal Ondansetron Odt [Zofran] 4 mg TL Q6H PRN #10 tablet PRN Reason: Nausea / Vomiting Comments: Small frequent fluids and bland food initially. Progress as able. Ondansetron if needed for nausea. Famotidine twice daily for a week and then once daily for another week or 2. Avoid alcohol. Lorazepam (Ativan) 1-2 every 6 hours if needed for withdrawal and taper down the amount and frequency over several days to week. Recheck if not improving well over the next several days or so. Discharge Date/Time: 11/01/19 20:53
[2019-11-01] MEDS ORDERED: SODIUM CHLORIDE 0.9% 1,000 ML IV STA (17:00)
[2019-11-01] MEDS ORDERED: FAMOTIDINE 20 MG/2 ML SYRINGE IVP STA (17:01)
[2019-11-01] MEDS ORDERED: LORazepam 2 MG/ML VIAL IVP STA ×2 (17:01→20:18)
[2019-11-01] MEDS ORDERED: PROCHLORPERAZINE 10 MG/2 ML VIAL IVP STA (17:01)
[2019-11-01] MEDS ORDERED: FOLIC ACID INJ 1 MG, THIAMINE INJ 100 MG, MAGNESIUM SULFATE 2 GM, MULTIVITAMIN 10 ML in... IV STA ×5 (17:01)
[2019-11-01 17:18] LABS: BASOPHILS % (AUTO) 0.2 %; EOSINOPHILS % (AUTO) 0.2 %; HGB - HEMOGLOBIN 13.2 g/dL (14.0-18.0); LYMPHOCYTES # (AUTO) 1.2 10^3/uL (1.5-3.5); LYMPHOCYTES % (AUTO) 20.1 %; MEAN CORPUSCULAR HEMOGLOBIN 33.8 pg (27.0-31.0); MEAN CORPUSCULAR HGB CONC 36.4 g/dL (32.0-36.0); MEAN CORPUSCULAR VOLUME 93.1 fL (80.0-94.0); MEAN PLATELET VOLUME 9.3 fL (7.4-11.4); MONOCYTES # (AUTO) 0.5 10^3/uL (0.0-1.0); MONOCYTES % (AUTO) 8.9 %; NEUTROPHILS # (AUTO) 4.3 10^3/uL (1.5-6.6); NEUTROPHILS % (AUTO) 70.3 %; PLT - PLATELET COUNT 167 10^3/uL (130-450); RED CELL DISTRIBUTION WIDTH 12.8 % (12.0-15.0); WHITE BLOOD COUNT 6.1 x10^3/uL (4.8-10.8)
[2019-11-01 17:31] LABS: ALBUMIN 4.1 g/dL (3.2-5.5); ALBUMIN/GLOBULIN RATIO 1.6 (1.0-2.2); BILIRUBIN,TOTAL 1.1 mg/dL (0.2-1.0); CREATININE 0.7 mg/dL (0.6-1.2); MAGNESIUM 1.6 mg/dL (1.7-2.8); TOTAL PROTEIN 6.7 g/dL (6.7-8.2)
[2019-11-01] MEDS ORDERED: POTASSIUM CHLOR 10 MEQ/100 ML 10 MEQ/100 ML BAG IV ONE (18:23)
[2019-11-01 19:47] LABS: BILIRUBIN,URINE NEGATIVE (NEGATIVE); GLUCOSE, URINE (UA) NEGATIVE (NEGATIVE); KETONES,URINE (UA) NEGATIVE (NEGATIVE); LEUKOCYTE ESTERASE, URINE NEGATIVE (NEGATIVE); NITRITE,URINE NEGATIVE (NEGATIVE); OCCULT BLOOD,URINE NEGATIVE (NEGATIVE); PROTEIN,URINE NEGATIVE (NEGATIVE); UROBILINOGEN,URINE 0.2 (NORMAL) E.U./dL (NORMAL)
[2019-11-01 19:49] LABS: CLARITY,URINE CLEAR (CLEAR)
[2019-11-01] MEDS ORDERED: HALOPERIDOL 5 MG/ML VIAL IVP ONE (20:18)
[2019-11-01 20:53] VITALS: BP 124/88
== END 2019-11-01 20:53 | disposition home or self-care (01) ==
LOC: EDUNIT# → ED 16:15
DX: F10.230 Alcohol dependence with withdrawal, uncomplicated (principal); K29.20 Alcoholic gastritis without bleeding; F17.200 Nicotine dependence, unspecified, uncomplicated; E86.0 Dehydration
CPT/HCPCS: 36415; 80053; 80320; 81003; 83690; 83735; 85025; 96365; 96366; 96367; 96375; 99284; 99285; J2060; J3411; 81001; 87086

== ENCOUNTER 2019-11-20 11:26 | Outpatient (CLI) | payer MEDICAID | END 2019-11-20 11:27 | disposition critical access hospital (66) | LOC: EMS 11:26 | PROVIDERS: ATTEND Surgery | DX: R22.0 Localized swelling, mass and lump, head (principal); R51 Headache | CPT/HCPCS: A0425; A0429 ==

== ENCOUNTER 2019-11-20 11:59 | Emergency (ER) | payer MEDICAID ==
[2019-11-20] MEDS ORDERED: cefTRIAXone 1 GM in SODIUM CHLORIDE 0.9% MINIBAG 100 ML IV STA (12:30)
[2019-11-20] MEDS ORDERED: VANCOMYCIN INJ 1 GM in SODIUM CHLORIDE 0.9% 500 ML IV STA (12:30)
[2019-11-20] MEDS ORDERED: MORPHINE 2 MG/ML CARPUJECT IVP STA ×2 (12:40→13:36)
[2019-11-20] MEDS ORDERED: SODIUM CHLORIDE 0.9% 1,000 ML IV STA (12:41)
--- NOTE | 2019-11-20 12:41 | ED Physician Documentation ---
History of Present Illness - Stated complaint Stated Complaint: ABSCESS - Chief complaint Chief Complaint: General - History obtained from History obtained from: Patient - History of Present Illness Timing: How many days ago (Several days) Pain level max: 8 Pain level now: 8 - Additonal information Additional information: 54-year-old male presents to the emergency department stating that he had a large right-sided facial abscess that was drained 2 days ago at the [facility]. He states he was discharged home yesterday. He is continued to have drainage from the drains that were inserted. He states he is now having increased swelling and redness to the right side of the face now going up the forehead as well. He called 911 and asked to be transported to the [facility], EMS refused and brought him here instead. Review of Systems Ten Systems: 10 systems reviewed and negative Constitutional: denies: Fever, Chills : denies: Dysuria Skin: denies: Rash Musculoskeletal: denies: Neck pain, Back pain Neurologic: denies: Headache PD PAST MEDICAL HISTORY - Past Medical History Cardiovascular: High cholesterol, Arrhythmia Respiratory: Other Neuro: None Endocrine/Autoimmune: None GI: None : None HEENT: Chronic sinusitis Psych: Depression, Anxiety Musculoskeletal: None Derm: None - Past Surgical History Past Surgical History: No - Present Medications Home Medications: Ambulatory Orders Medication Instructions Recorded Confirmed Propranolol HCl 20 mg PO TID 05/02/18 11/20/19 hydroCHLOROthiazide 12.5 mg PO DAILY 05/02/18 11/20/19 [Hydrochlorothiazide] lisinopriL [Lisinopril] 10 mg PO DAILY 05/02/18 11/20/19 Ondansetron Odt [Zofran] 4 mg TL Q6H PRN #10 tablet 11/01/19 11/20/19 Amox/Clav 500/125 [Augmentin] 1 each PO Q8H 11/20/19 11/20/19 Atorvastatin [Lipitor] 10 mg PO DAILY 11/20/19 11/20/19 Chlorhexidine Gluconate 15 ml MM TID 11/20/19 11/20/19 - Allergies Allergies/Adverse Reactions: Allergies Allergy/AdvReac Type Severity Reaction Status Date / Time Penicillins Allergy Mild Unknown Verified 11/20/19 12:13 sertraline Allergy Unknown Verified 11/20/19 12:13 - Social History Does the pt smoke?: Yes Smoking Status: Current every day smoker Does the pt drink ETOH?: Yes Does the pt have substance abuse?: No - Immunizations Immunizations are current?: Yes - POLST Patient has POLST: No POLST Status: Full Code PD ED PE NORMAL - Vitals Vital signs reviewed: Yes - General General: Alert and oriented X 3, No acute distress - HEENT HEENT: Moist mucous membranes, Other (Tender to palpation and swelling from the right bahai down to the mandible. Mild trismus. Normal phonation. Not drooling. Able to handle secretions. There is a large open incision underneath the mandible with 2 Elda drains that is draining purulent material.) - Neck Neck: Supple, no meningeal sign - Cardiac Cardiac: RRR - Respiratory Respiratory: No respiratory distress, Clear bilaterally - Derm Derm: Warm and dry, No rash - Extremities Extremities: No edema - Neuro Neuro: Alert and oriented X 3, lion trainer 2-12 intact, No motor deficit, No sensory deficit, Normal speech Results - Vitals Vitals: Vital Signs - 24 hr 11/20/19 11/20/19 12:08 13:54 Temperature 37.1 C Heart Rate 73 74 Respiratory 16 18 Rate Blood Pressure 157/103 H 142/99 H O2 Saturation 97 99 Oxygen O2 Source Room air - Labs Labs: Laboratory Tests 11/20/19 11/20/19 12:45 12:45 WBC 12.5 H RBC 3.35 L Hgb 11.5 L Hct 32.5 L MCV 97.0 H MCH 34.3 H MCHC 35.4 RDW 14.0 Plt Count 410 MPV 8.9 Neut # (Auto) Not Reportable Lymph # (Auto) Not Reportable Arthur # (Auto) Not Reportable Eos # (Auto) Not Reportable Baso # (Auto) Not Reportable Absolute Nucleated RBC Not Reportable Total Counted 100 Band Neuts % (Manual) 2 Reactive Lymphs % (Man) 1 Abnorm Lymph % (Manual) 0 Myelocytes % 2 H Nucleated RBC % Not Reportable Neutrophils # (Manual) 8.4 H Lymphocytes # (Manual) 2.5 Monocytes # (Manual) 1.4 H Eosinophils # (Manual) 0.0 Basophils # (Manual) 0.0 Differential Comment MANUAL DIFFERENTIAL Manual Slide Review Indicated WBC Morphology 1+ VACUOLATION Platelet Estimate NORMAL (130-450,000) Platelet Morphology NORMAL APPEARANCE RBC Morph Micro Appear 1+ HYPOCHROMASIA Sodium 133 L Potassium 2.9 L Chloride 90 L Carbon Dioxide 28 Anion Gap 15.0 H BUN 20 Creatinine 0.7 Estimated GFR (MDRD) 117 Glucose 108 H Calcium 9.3 PD MEDICAL DECISION MAKING - ED course Complexity details: reviewed old records, reviewed results, re-evaluated patient, considered differential, d/w patient, d/w lean process deployment consultant ED course: Patient seems to be worsening postoperatively. He will need to be transferred back to the [facility] for postoperative care. Given IV pain medication and antibiotics here. We will also give him IV fluids. [facility] contacted at 1240. Patient was accepted to the [facility] emergency department by Dr. Piper at 1420. Patient was given Rocephin and vancomycin here. COBRA forms completed This document was made in part using voice recognition software. While efforts are made to proofread this document, sound alike and grammatical errors may occur. Departure - Departure Disposition: 02 Transfer Acute Care Hosp Clinical Impression: Facial abscess Condition: Stable Discharge Date/Time: 11/20/19 15:02
[2019-11-20 12:53] LABS: BASOPHILS % (AUTO) 0.3 %; EOSINOPHILS % (AUTO) 0.1 %; HGB - HEMOGLOBIN 11.5 g/dL (14.0-18.0); LYMPHOCYTES % (AUTO) 15.6 %; MEAN CORPUSCULAR HEMOGLOBIN 34.3 pg (27.0-31.0); MEAN CORPUSCULAR HGB CONC 35.4 g/dL (32.0-36.0); MEAN PLATELET VOLUME 8.9 fL (7.4-11.4); MONOCYTES % (AUTO) 14.8 %; PLT - PLATELET COUNT 410 10^3/uL (130-450); RED BLOOD COUNT 3.35 10^6/uL (4.70-6.10); WHITE BLOOD COUNT 12.5 x10^3/uL (4.8-10.8)
[2019-11-20 13:05] LABS: CALCIUM 9.3 mg/dL (8.5-10.3); CREATININE 0.7 mg/dL (0.6-1.2)
[2019-11-20 13:21] LABS: ABNORMAL LYMPHS % (MANUAL) 0 %
[2019-11-20 13:28] LABS: BAND NEUTROPHILS % (MANUAL) 2 %; LYMPHOCYTES # (MANUAL) 2.5 10^3/uL (1.5-3.5); LYMPHOCYTES % (MANUAL) 19 %; MONOCYTES # (MANUAL) 1.4 10^3/uL (0.0-1.0); MYELOCYTES % (MANUAL) 2 %
[2019-11-20 13:29] LABS: DIFFERENTIAL COMMENT MANUAL DIFFERENTIAL; PLATELET ESTIMATE, MANUAL NORMAL (130-450,000) (NORMAL); PLATELET MORPHOLOGY NORMAL APPEARANCE (NORMAL); RBC MORPHOLOGY (MULTIPLE) 1+ HYPOCHROMASIA (NORMAL)
[2019-11-20 13:54] VITALS: BP 142/99
== END 2019-11-20 15:02 | disposition short-term general hospital (02) ==
LOC: EDUNIT# → ED 11:59
DX: L02.01 Cutaneous abscess of face (principal); F17.200 Nicotine dependence, unspecified, uncomplicated
CPT/HCPCS: 36415; 80048; 85025; 96365; 96375; 96376; 99284; 99285; J3370

== ENCOUNTER 2019-11-20 14:59 | Outpatient (CLI) | payer MEDICAID | END 2019-11-20 15:00 | disposition short-term general hospital (02) | LOC: EMS 14:59 | PROVIDERS: ATTEND Surgery | DX: T81.49XA Infection following a procedure, other surgical site, initial encounter (principal) | CPT/HCPCS: A0425; A0426 ==

== ENCOUNTER 2020-06-10 11:49 | Emergency (ER) | payer MEDICAID ==
[2020-06-10] MEDS ORDERED: cefTRIAXone 1 GM VIAL IM STA (12:35)
[2020-06-10] MEDS ORDERED: LIDOCAINE 1% 2 ML VIAL MC ONE (12:35)
--- NOTE | 2020-06-10 12:42 | ED Physician Documentation ---
PD HPI HEAD INJURY - Stated complaint Stated Complaint: FACE SWELLING,HEADACHE - Chief complaint Chief Complaint: Trauma Hd/Nk - History obtained from History obtained from: Patient - History of Present Illness Mechanism of head injury: Fell Where head injury occurred: Work Timing - onset: How many days ago (3) Location of injury: Right, Front Quality of pain: Pain Associated symptoms: Other (sudden worsening of swelling). No: LOC, AMS, Amnesia, Nausea / vomiting, Neck pain, Paresthesias, Seizures, Ear drainage, Nasal drainage Symptoms improve with: Rest Symptoms worsen with: Palpation, Movement Contributing factors: No: Anticoagulated Similar symptoms before: Has not had sx before Recently seen: Not recently seen - Additional information Additional information: Previously well 54-year-old alcoholic male was on a 3 foot stepladder when the ladder gave out and he fell to the right side of his face. He has a bruise over the right eye and he did not have loss of consciousness associated with the fall. He felt things were improving he went to blow his nose now he has a lot of swelling to the right periorbital tissues. He is able to move his eye around and has normal vision. Review of Systems Constitutional: denies: Fever Eyes: denies: Loss of vision, Decreased vision, Photophobia, Discharge, Irritation Ears: denies: Ear pain Nose: denies: Congestion Throat: denies: Sore throat Cardiac: denies: Chest pain / pressure, Palpitations Respiratory: denies: Dyspnea, Cough GI: denies: Abdominal Pain, Nausea, Vomiting, Diarrhea : denies: Dysuria, Frequency Skin: denies: Rash Musculoskeletal: denies: Neck pain, Back pain, Extremity pain Neurologic: denies: Generalized weakness, Focal weakness, Numbness PD PAST MEDICAL HISTORY - Past Medical History Past Medical History: Yes Cardiovascular: High cholesterol, Arrhythmia Respiratory: Other Neuro: None Endocrine/Autoimmune: None GI: None : None HEENT: Chronic sinusitis Psych: Depression, Anxiety Musculoskeletal: None Derm: None - Past Surgical History Past Surgical History: No - Present Medications Home Medications: Ambulatory Orders Medication Instructions Recorded Confirmed Propranolol HCl 20 mg PO TID 05/02/18 11/20/19 hydroCHLOROthiazide 12.5 mg PO DAILY 05/02/18 11/20/19 [Hydrochlorothiazide] lisinopriL [Lisinopril] 10 mg PO DAILY 05/02/18 11/20/19 Ondansetron Odt [Zofran] 4 mg TL Q6H PRN #10 tablet 11/01/19 11/20/19 Amox/Clav 500/125 [Augmentin] 1 each PO Q8H 11/20/19 11/20/19 Atorvastatin [Lipitor] 10 mg PO DAILY 11/20/19 11/20/19 Chlorhexidine Gluconate 15 ml MM TID 11/20/19 11/20/19 Cefdinir 300 mg PO BID #20 capsule 06/10/20 - Allergies Allergies/Adverse Reactions: Allergies Allergy/AdvReac Type Severity Reaction Status Date / Time Penicillins Allergy Mild Unknown Verified 06/10/20 11:55 sertraline Allergy Unknown Verified 06/10/20 11:55 - Social History Does the pt smoke?: Yes Smoking Status: Current every day smoker Does the pt drink ETOH?: Yes Does the pt have substance abuse?: No - Immunizations Immunizations are current?: Yes - POLST Patient has POLST: No POLST Status: Full Code PD ED PE NORMAL - Vitals Vital signs reviewed: Yes (hypertensive ) - General General: Alert and oriented X 3, No acute distress, Well developed/nourished - HEENT HEENT: PERRL, EOMI, Ears normal, Other (There is swelling and point tenderness to the right tad-orbital tissues with a superficial laceration above the right eyebrow. There is not significant tenderness to the maxillary sinus or the medial orbit. ) - Neck Neck: Supple, no meningeal sign, No bony TTP - Respiratory Respiratory: No respiratory distress - Derm Derm: Normal color, Warm and dry, No rash - Extremities Extremities: No deformity, No edema - Neuro Neuro: Alert and oriented X 3, roof panel hanger 2-12 intact, No motor deficit, No sensory deficit, Normal speech Eye Opening: Spontaneous Motor: Obeys Commands Verbal: Oriented GCS Score: 15 - Psych Psych: Normal mood, Normal affect Results - Vitals Vitals: Vital Signs - 24 hr 06/10/20 11:55 Temperature 37.2 C Heart Rate 93 Respiratory 18 Rate Blood Pressure 176/104 H O2 Saturation 100 Oxygen O2 Source Room air - Rads (name of study) facial bones Radiology: Prelim report reviewed (Impression: 1. Blowout fractures of the right inferior and medial orbital foss as described with herniation of orbital fat. No evidence of extraocular muscle herniation. Gas demonstrated within the right orbit as well as periorbital subcutaneous emphysema and soft tissue swelling. ), Final report received ( No retrobulbar or intraorbital fluid collections. Globes appear intact), EMP read indepedently, See rad report PD MEDICAL DECISION MAKING - ED course Complexity details: reviewed results, re-evaluated patient, considered differential, d/w patient ED course: 54-year-old male with a an orbital blowout fracture on the right side does not have evidence of entrapment. He did blow his nose and now has a lot of swelling to the area. He is given a dose of Rocephin IM we will place him on some antibiotic and have him follow-up with maxillofacial. Departure - Departure Disposition: 01 Home, Self Care Clinical Impression: Orbital floor (blow-out), closed fracture Condition: Stable Instructions: ED Fx Face Follow-Up: Chuy Borrero DDS [Provider Admit Priv/Credential] - Prescriptions: Cefdinir 300 mg PO BID #20 capsule
[2020-06-10] MEDS ORDERED: KETOROLAC 60 MG/2 ML VIAL IM STA (13:25)
--- NOTE | 2020-06-10 13:37 | CT Report ---
PROCEDURE: MAXILLOFACIAL WO INDICATIONS: R tad-orbital trauma TECHNIQUE: Noncontrast 1.5 mm thick axial images acquired from the mandible through the frontal sinuses, with co nando and sagittal reformatting. For radiation dose reduction, the following was used: automated ex posure control, adjustment of mA and/or kV according to patient size. COMPARISON: 11/16/2019. FINDINGS: Image quality: Excellent. Bones and teeth: There is an inferior blowout fracture of the right orbit with inferior herniation o f orbital fat contents. No herniation of the extraocular muscles. The fracture involves the right inf raorbital foramen. There is also a mildly displaced blowout fracture of the right lamina papyracea. N clemencia bones and septum are intact. Visualized portions of the mandible demonstrate no fractures or torres bluxation. Zygomatic arches are intact. Pterygoid plates are intact. Visualized portions of the sk ull base and auditory canals are intact. Sinuses: There is mild because of thickening within the bilateral maxillary sinuses, right greater t woods left, without air-fluid levels. There is mild mucosal thickening and partial fluid opacification of the right ethmoid air cells. Mastoid air cells are aerated. Soft tissues: There is extensive right periorbital soft tissue swelling with subcutaneous emphysema. The globes appear intact. There is gas within the right orbit with mild intraorbital fat stranding. No retrobulbar fluid collections. Vascular: Visualized vascular structures appear grossly normal in the absence of contrast. IMPRESSION: 1. Blowout fractures of the right inferior and medial orbital foss as described with herniation of o rbital fat. No evidence of extraocular muscle herniation. 2. Gas demonstrated within the right orbit as well as periorbital subcutaneous emphysema and soft tis baldo swelling. No retrobulbar intraorbital fluid collections. Globes appear intact. Reviewed by: Cody Garcia MD on 06/10/2020 1:35 PM [facility] Approved by: Cody Garcia MD on 06/10/2020 1:35 PM [facility] Station ID: [id number]
[2020-06-10 14:10] VITALS: BP 160/100
== END 2020-06-10 14:09 | disposition home or self-care (01) ==
LOC: ED 11:49
DX: S02.31XA Fracture of orbital floor, right side, initial encounter for closed fracture (principal); S02.831A Fracture of medial orbital wall, right side, initial encounter for closed fracture; S01.111A Laceration without foreign body of right eyelid and periocular area, initial encounter; W11.XXXA Fall on and from ladder, initial encounter; Y99.0 Civilian activity done for income or pay; F17.200 Nicotine dependence, unspecified, uncomplicated; Z88.0 Allergy status to penicillin
CPT/HCPCS: 70486; 96372; 99283; 99284

== ENCOUNTER 2020-09-17 10:05 | Outpatient (CLI) | payer MEDICAID ==
[2020-09-17 15:00] LABS: BASOPHILS % (AUTO) 0.4 %; EOSINOPHILS # (AUTO) 0.1 10^3/uL (0.0-0.7); EOSINOPHILS % (AUTO) 1.6 %; HCT - HEMATOCRIT 42.4 % (42.0-52.0); HGB - HEMOGLOBIN 14.3 g/dL (14.0-18.0); LYMPHOCYTES # (AUTO) 1.4 10^3/uL (1.5-3.5); LYMPHOCYTES % (AUTO) 28.3 %; MEAN CORPUSCULAR HEMOGLOBIN 32.9 pg (27.0-31.0); MEAN CORPUSCULAR HGB CONC 33.7 g/dL (32.0-36.0); MEAN CORPUSCULAR VOLUME 97.7 fL (80.0-94.0); MEAN PLATELET VOLUME 9.7 fL (7.4-11.4); MONOCYTES # (AUTO) 0.4 10^3/uL (0.0-1.0); MONOCYTES % (AUTO) 7.9 %; NEUTROPHILS % (AUTO) 61.6 %; PLT - PLATELET COUNT 253 10^3/uL (130-450); RED BLOOD COUNT 4.34 10^6/uL (4.70-6.10); RED CELL DISTRIBUTION WIDTH 12.6 % (12.0-15.0); WHITE BLOOD COUNT 4.9 x10^3/uL (4.8-10.8)
[2020-09-17 15:47] LABS: ALBUMIN 4.8 g/dL (3.2-5.5); ALBUMIN/GLOBULIN RATIO 1.8 (1.0-2.2); ALKALINE PHOSPHATASE 44 IU/L (42-121); ALT ALANINE AMINOTRANSFERASE 25 IU/L (10-60); AST ASPARTATE AMINOTRANSFERASE 31 IU/L (10-42); BUN - BLOOD UREA NITROGEN 15 mg/dL (6-20); CALCIUM 9.6 mg/dL (8.5-10.3); CARBON DIOXIDE - CO2 26 mmol/L (21-32); CHLORIDE 102 mmol/L (101-111); CHOL/HDL RATIO 2.9 (<5.0); CHOLESTEROL 194 mg/dL; CREATININE 0.8 mg/dL (0.6-1.2); GFR - MDRD 100 (>89); GLUCOSE 97 mg/dL (70-100); HDL CHOLESTEROL 68 mg/dL; LDL CHOLESTEROL,CALCULATED 102 mg/dL; LDL/HDL RATIO 1.5 (<3.6); POTASSIUM 4.3 mmol/L (3.5-5.0); SODIUM 137 mmol/L (135-145); TOTAL PROTEIN 7.4 g/dL (6.7-8.2); TRIGLYCERIDES 122 mg/dL; VLDL CHOLESTEROL 24 mg/dL
[2020-09-17 15:48] LABS: THYROID STIMULATING HORMONE 0.48 uIU/mL (0.34-5.60)
== END 2020-09-17 10:06 | disposition home or self-care (01) ==
LOC: LAB.S 10:05
PROVIDERS: ATTEND Registered Nurse
DX: I10 Essential (primary) hypertension (principal); D53.9 Nutritional anemia, unspecified; F10.20 Alcohol dependence, uncomplicated; E78.5 Hyperlipidemia, unspecified; F17.200 Nicotine dependence, unspecified, uncomplicated
CPT/HCPCS: 36415; 80050; 80061; 83721; 84153

== ENCOUNTER 2020-09-30 12:45 | Outpatient (CLI) | payer MEDICAID | END 2020-09-30 12:46 | disposition critical access hospital (66) | LOC: EMS 12:45 | DX: M79.10 Myalgia, unspecified site (principal); R11.0 Nausea; R51.9 Headache, unspecified | CPT/HCPCS: A0425; A0427; A0999 ==

== ENCOUNTER 2020-09-30 13:15 | Emergency (ER) | payer MEDICAID ==
[2020-09-30] MEDS ORDERED: ONDANSETRON 4 MG/2 ML VIAL IVP STA (13:21)
[2020-09-30] MEDS ORDERED: THIAMINE 100 MG TABLET PO STA (13:21)
[2020-09-30] MEDS ORDERED: SODIUM CHLORIDE 0.9% 1,000 ML IV STA (13:21)
--- NOTE | 2020-09-30 13:23 | ED Physician Documentation ---
History of Present Illness - Stated complaint Stated Complaint: ETOH - History obtained from History obtained from: Patient, EMS - Additonal information Additional information: 55-year-old gentleman presents by ambulance for help with alcohol use. States that for the last 5 days has been on a reynaga drinking half a gallon of vodka a day. He does want to quit, but does not want to go inpatient. He would like a prescription for something like Ativan to help him through the withdrawal process. Last drink was about 3 hours ago. Review of Systems Ten Systems: 10 systems reviewed and negative Constitutional: reports: Reviewed and negative Eyes: reports: Reviewed and negative Ears: reports: Reviewed and negative Nose: reports: Reviewed and negative Throat: reports: Reviewed and negative Cardiac: reports: Reviewed and negative Respiratory: reports: Reviewed and negative PD PAST MEDICAL HISTORY - Past Medical History Cardiovascular: High cholesterol, Arrhythmia Respiratory: Other Neuro: None Endocrine/Autoimmune: None GI: None : None HEENT: Chronic sinusitis Psych: Depression, Anxiety Musculoskeletal: None Derm: None - Past Surgical History Past Surgical History: No - Present Medications Home Medications: Ambulatory Orders Medication Instructions Recorded Confirmed hydroCHLOROthiazide 12.5 mg PO DAILY 05/02/18 09/30/20 [Hydrochlorothiazide] lisinopriL [Lisinopril] 10 mg PO DAILY 05/02/18 09/30/20 Atorvastatin [Lipitor] 10 mg PO DAILY 11/20/19 09/30/20 Cefdinir 300 mg PO BID #20 capsule 06/10/20 LORazepam [Ativan] 1 mg PO TID PRN #12 tablet 09/30/20 Potassium Chloride Oral Soln 20 meq PO BIDWM #7 09/30/20 [Potassium Chloride] Thiamine [Vitamin B-1] 100 mg PO DAILY #10 tablet 09/30/20 - Allergies Allergies/Adverse Reactions: Allergies Allergy/AdvReac Type Severity Reaction Status Date / Time Penicillins Allergy Mild Unknown Verified 09/30/20 13:29 sertraline Allergy Unknown Verified 09/30/20 13:29 - Social History Does the pt smoke?: Yes Smoking Status: Current every day smoker Does the pt drink ETOH?: Yes Does the pt have substance abuse?: No - Immunizations Immunizations are current?: Yes - POLST Patient has POLST: No POLST Status: Full Code PD ED PE NORMAL - Vitals Vital signs reviewed: Yes - General General: Alert and oriented X 3, Other (He is visibly shaky, that said the shakes defervesce when he is conversational or distracted. He has no tongue fasciculations or tremor.) - HEENT HEENT: PERRL, EOMI, Other (No scleral icterus) - Neck Neck: Supple, no meningeal sign, No bony TTP - Abdomen Abdomen: Non tender - Derm Derm: No rash - Neuro Neuro: Alert and oriented X 3, No motor deficit, No sensory deficit, Normal speech Results - Vitals Vitals: Vital Signs - 24 hr 09/30/20 09/30/20 09/30/20 13:15 13:22 14:38 Temperature 37.3 C Heart Rate 94 89 88 Respiratory 18 18 16 Rate Blood Pressure 171/101 H 152/104 H 133/93 H O2 Saturation 98 98 99 Oxygen O2 Source Room air - Labs Labs: Laboratory Tests 09/30/20 09/30/20 13:30 13:30 WBC 6.0 RBC 3.72 L Hgb 12.0 L Hct 33.9 L MCV 91.1 MCH 32.3 H MCHC 35.4 RDW 12.4 Plt Count 126 L MPV 9.1 Neut # (Auto) 4.8 Lymph # (Auto) 0.7 L [place] # (Auto) 0.4 Eos # (Auto) 0.0 Baso # (Auto) 0.0 Absolute Nucleated RBC 0.00 Nucleated RBC % 0.0 Sodium 128 L Potassium 2.9 L Chloride 90 L Carbon Dioxide 23 Anion Gap 15.0 H BUN 13 Creatinine 0.7 Estimated GFR (MDRD) 116 Glucose 134 H Calcium 8.7 Magnesium 1.7 Total Bilirubin 0.8 AST 129 H ALT 100 H Alkaline Phosphatase 52 Total Protein 6.6 L Albumin 4.4 Globulin 2.2 Albumin/Globulin Ratio 2.0 Lipase 65 H Ethyl Alcohol 252.1 PD MEDICAL DECISION MAKING - ED course ED course: 55-year-old gentleman presents with alcohol intoxication requesting meds for withdrawal. On arrival he is not in clinical trial, and well on study. He wants to start outpatient treatment. We will observe him until clinical sobriety. He received oral potassium and thiamine here. After couple hours he was clinically sober and requesting to leave. Still requesting both pain medication and Ativan while here but discussed with him that he really should not take any Ativan until late tonight or even tomorrow, as he has not started the withdrawal process yet. Departure - Departure Disposition: 01 Home, Self Care Clinical Impression: Alcohol intoxication Qualifiers: Complication of substance-induced condition: uncomplicated Qualified Code(s): F10.920 - Alcohol use, unspecified with intoxication, uncomplicated Condition: Stable Instructions: ED Alcohol Intoxication Prescriptions: LORazepam [Ativan] 1 mg PO TID PRN #12 tablet PRN Reason: alcohol withdrawl Potassium Chloride Oral Soln [Potassium Chloride] 20 meq PO BIDWM #7 Thiamine [Vitamin B-1] 100 mg PO DAILY #10 tablet Comments: Return if you change your mind and would like to consider inpatient treatment for Alcoholism. Follow-up with your primary care physician. do not drive while taking lorazepam. Also do not drive today. Do not drive while drunk.
[2020-09-30 13:40] LABS: BASOPHILS % (AUTO) 0.2 %; EOSINOPHILS % (AUTO) 0.2 %; HCT - HEMATOCRIT 33.9 % (42.0-52.0); LYMPHOCYTES # (AUTO) 0.7 10^3/uL (1.5-3.5); LYMPHOCYTES % (AUTO) 12.3 %; MEAN CORPUSCULAR HEMOGLOBIN 32.3 pg (27.0-31.0); MEAN CORPUSCULAR HGB CONC 35.4 g/dL (32.0-36.0); MEAN CORPUSCULAR VOLUME 91.1 fL (80.0-94.0); MEAN PLATELET VOLUME 9.1 fL (7.4-11.4); MONOCYTES # (AUTO) 0.4 10^3/uL (0.0-1.0); NEUTROPHILS # (AUTO) 4.8 10^3/uL (1.5-6.6); NEUTROPHILS % (AUTO) 79.6 %; PLT - PLATELET COUNT 126 10^3/uL (130-450); RED BLOOD COUNT 3.72 10^6/uL (4.70-6.10); RED CELL DISTRIBUTION WIDTH 12.4 % (12.0-15.0)
[2020-09-30 13:48] LABS: ALBUMIN 4.4 g/dL (3.2-5.5); BILIRUBIN,TOTAL 0.8 mg/dL (0.2-1.0); CALCIUM 8.7 mg/dL (8.5-10.3); CREATININE 0.7 mg/dL (0.6-1.2); ETOH - ETHANOL 252.1 mg/dL; MAGNESIUM 1.7 mg/dL (1.7-2.8); POTASSIUM 2.9 mmol/L (3.5-5.0); TOTAL PROTEIN 6.6 g/dL (6.7-8.2)
[2020-09-30] MEDS ORDERED: POTASSIUM CHLORIDE 20 MEQ TABLET PO STA (13:49)
[2020-09-30] MEDS ORDERED: ACETAMINOPHEN 325 MG TABLET PO STA (15:19)
[2020-09-30] MEDS ORDERED: IBUPROFEN 600 MG TABLET PO STA (15:22)
[2020-09-30 15:36] VITALS: BP 144/90
== END 2020-09-30 16:01 | disposition home or self-care (01) ==
LOC: EDUNIT# → ED 13:15
DX: F10.929 Alcohol use, unspecified with intoxication, unspecified (principal); F17.200 Nicotine dependence, unspecified, uncomplicated; Z79.899 Other long term (current) drug therapy
CPT/HCPCS: 36415; 80053; 80320; 83690; 83735; 85025; 96374; 99283; 99284; A9270

== ENCOUNTER 2020-11-19 17:37 | Outpatient (CLI) | payer MEDICAID | END 2020-11-19 17:38 | disposition critical access hospital (66) | LOC: EMS 17:37 | DX: Z76.89 Persons encountering health services in other specified circumstances (principal) | CPT/HCPCS: A0425; A0429; A0999 ==

== ENCOUNTER 2020-11-19 18:05 | Emergency (ER) | payer MEDICAID ==
[2020-11-19] MEDS ORDERED: FOLIC ACID INJ 1 MG, THIAMINE INJ 100 MG, MAGNESIUM SULFATE 2 GM, MULTIVITAMIN 10 ML in... IV STA ×5 (18:35)
--- NOTE | 2020-11-19 18:40 | ED Physician Documentation ---
History of Present Illness - Stated complaint Stated Complaint: ETOH - Chief complaint Chief Complaint: General - History obtained from History obtained from: Patient - History of Present Illness Timing: Today Pain level max: 0 Pain level now: 0 - Additonal information Additional information: 55-year-old male presents to the emergency department with alcohol intoxication. He states that his mother called a welfare check on him and when the police showed up to his house he stated that he wants help quitting drinking and wants to go to detox. He was brought here for evaluation. He is not suicidal or homicidal. He states he has gone through the "DTs before". He states he has had seizures in the past when he detoxed without medical supervision. Review of Systems Ten Systems: 10 systems reviewed and negative Constitutional: denies: Fever, Chills Cardiac: denies: Chest pain / pressure, Palpitations Respiratory: denies: Cough GI: denies: Vomiting, Diarrhea Skin: denies: Rash Musculoskeletal: denies: Neck pain, Back pain Neurologic: denies: Headache PD PAST MEDICAL HISTORY - Past Medical History Cardiovascular: High cholesterol, Arrhythmia Respiratory: Other Neuro: None Endocrine/Autoimmune: None GI: None : None HEENT: Chronic sinusitis Psych: Depression, Anxiety Musculoskeletal: None Derm: None - Past Surgical History Past Surgical History: No - Present Medications Home Medications: Ambulatory Orders Medication Instructions Recorded Confirmed hydroCHLOROthiazide 12.5 mg PO DAILY 05/02/18 09/30/20 [Hydrochlorothiazide] lisinopriL [Lisinopril] 10 mg PO DAILY 05/02/18 09/30/20 Atorvastatin [Lipitor] 10 mg PO DAILY 11/20/19 09/30/20 Cefdinir 300 mg PO BID #20 capsule 06/10/20 LORazepam [Ativan] 1 mg PO TID PRN #12 tablet 09/30/20 Potassium Chloride Oral Soln 20 meq PO BIDWM #7 09/30/20 [Potassium Chloride] Thiamine [Vitamin B-1] 100 mg PO DAILY #10 tablet 09/30/20 - Allergies Allergies/Adverse Reactions: Allergies Allergy/AdvReac Type Severity Reaction Status Date / Time Penicillins Allergy Mild Unknown Verified 11/19/20 18:16 sertraline Allergy Unknown Verified 11/19/20 18:16 - Social History Does the pt smoke?: Yes Smoking Status: Current every day smoker Does the pt drink ETOH?: Yes Does the pt have substance abuse?: No - Immunizations Immunizations are current?: Yes - POLST Patient has POLST: No POLST Status: Full Code PD ED PE NORMAL - Vitals Vital signs reviewed: Yes - General General: Alert and oriented X 3, No acute distress, Well developed/nourished - HEENT HEENT: PERRL, Moist mucous membranes - Neck Neck: Supple, no meningeal sign - Cardiac Cardiac: RRR, Strong equal pulses - Respiratory Respiratory: No respiratory distress, Clear bilaterally - Abdomen Abdomen: Soft, Non tender, Non distended - Derm Derm: Warm and dry - Extremities Extremities: Other (Mildly shaky and tachycardic, the tremors which are with intention. They go away when he starts to move.) - Neuro Neuro: Alert and oriented X 3 - Psych Psych: Normal mood, Normal affect Results - Vitals Vitals: Vital Signs - 24 hr 11/19/20 11/19/20 18:10 20:58 Temperature 37.1 C Heart Rate 117 H 108 H Respiratory 16 20 Rate Blood Pressure 137/105 H 132/98 H O2 Saturation 97 100 Oxygen O2 Source Room air - EKG (time done) 1849 Rate: Rate (enter#) (113) Rhythm: Sinus tachycardia [place]: Normal Intervals: Normal [place] QRS: Normal Ischemia: Normal ST segments - Labs Labs: Laboratory Tests 11/19/20 11/19/20 11/19/20 18:45 18:45 18:45 WBC 5.3 RBC 4.43 L Hgb 14.4 Hct 41.2 L MCV 93.0 MCH 32.5 H MCHC 35.0 RDW 13.2 Plt Count 207 MPV 8.8 Neut # (Auto) 3.7 Lymph # (Auto) 1.2 L [place] # (Auto) 0.4 Eos # (Auto) 0.0 Baso # (Auto) 0.0 Absolute Nucleated RBC 0.00 Nucleated RBC % 0.0 Sodium 135 Potassium 3.7 Chloride 96 L Carbon Dioxide 23 Anion Gap 16.0 H BUN 12 Creatinine 0.7 Estimated GFR (MDRD) 116 Glucose 117 H Calcium 8.7 Phosphorus 2.6 Magnesium 2.1 Total Bilirubin 0.5 AST 83 H ALT 68 H Alkaline Phosphatase 55 Total Protein 7.5 Albumin 5.0 Globulin 2.5 Albumin/Globulin Ratio 2.0 Lipase 58 H TSH 0.88 Salicylates < 6.0 Acetaminophen < 10 L Ethyl Alcohol 340.6 PD MEDICAL DECISION MAKING - ED course Complexity details: reviewed results, re-evaluated patient, considered differential, d/w patient ED course: Patient is not in active alcohol withdrawal at this time. He is intoxicated in the emergency department. His blood alcohol level needs to be below 250 in order to go to detox. He was given a banana bag here. When his alcohol level has decreased, we will attempt to find a detox bed for him. Patient signed out to the oncoming emergency department physician. This document was made in part using voice recognition software. While efforts are made to proofread this document, sound alike and grammatical errors may occur. Departure - Departure Clinical Impression: Alcohol abuse Alcohol intoxication Qualifiers: Complication of substance-induced condition: uncomplicated Qualified Code(s): F10.920 - Alcohol use, unspecified with intoxication, uncomplicated Condition: Stable
--- OUTSIDE RECORDS SUMMARY | 2020-11-19 18:42 | EXTERNAL MEDICAL SUMMARY RPT | Continuity of Care Document ---
:1965 Demographics Phone Unavailable Preferred Language Unknown Marital Status Unknown [employer] Affiliation Unknown Race Unknown Ethnic Group Unknown Author Organization [facility] Address [address] [id number] Phone Allergies Encounters Medications Problems Results
[2020-11-19 18:49] LABS: BASOPHILS % (AUTO) 0.4 %; HCT - HEMATOCRIT 41.2 % (42.0-52.0); HGB - HEMOGLOBIN 14.4 g/dL (14.0-18.0); LYMPHOCYTES # (AUTO) 1.2 10^3/uL (1.5-3.5); LYMPHOCYTES % (AUTO) 22.6 %; MEAN CORPUSCULAR HEMOGLOBIN 32.5 pg (27.0-31.0); MEAN PLATELET VOLUME 8.8 fL (7.4-11.4); MONOCYTES # (AUTO) 0.4 10^3/uL (0.0-1.0); MONOCYTES % (AUTO) 6.8 %; NEUTROPHILS # (AUTO) 3.7 10^3/uL (1.5-6.6); PLT - PLATELET COUNT 207 10^3/uL (130-450); RED BLOOD COUNT 4.43 10^6/uL (4.70-6.10); RED CELL DISTRIBUTION WIDTH 13.2 % (12.0-15.0); WHITE BLOOD COUNT 5.3 x10^3/uL (4.8-10.8)
[2020-11-19 19:06] LABS: ACETAMINOPHEN < 10 ug/mL (10-30); ALKALINE PHOSPHATASE 55 IU/L (42-121); ALT ALANINE AMINOTRANSFERASE 68 IU/L (10-60); AST ASPARTATE AMINOTRANSFERASE 83 IU/L (10-42); BILIRUBIN,TOTAL 0.5 mg/dL (0.2-1.0); BUN - BLOOD UREA NITROGEN 12 mg/dL (6-20); CALCIUM 8.7 mg/dL (8.5-10.3); CARBON DIOXIDE - CO2 23 mmol/L (21-32); CHLORIDE 96 mmol/L (101-111); CREATININE 0.7 mg/dL (0.6-1.2); ETOH - ETHANOL 340.6 mg/dL; GFR - MDRD 116 (>89); GLUCOSE 117 mg/dL (70-100); LIPASE 58 U/L (22-51); MAGNESIUM 2.1 mg/dL (1.7-2.8); PHOSPHORUS 2.6 mg/dL (2.5-4.6); POTASSIUM 3.7 mmol/L (3.5-5.0); SALICYLATE < 6.0 mg/dL; SODIUM 135 mmol/L (135-145); TOTAL PROTEIN 7.5 g/dL (6.7-8.2)
[2020-11-20 01:54] LABS: B. PARAPERTUSSIS- RESP PCR PAN NOT DETECTED; B. PERTUSSIS- RESP PCR PANEL NOT DETECTED; C. PNEUMONIAE- RESP PCR PANEL NOT DETECTED; CORONAVIRUS 229E-RESP PCR NOT DETECTED; CORONAVIRUS HKU1-RESP PCR NOT DETECTED; CORONAVIRUS NL63-RESP PCR NOT DETECTED; CORONAVIRUS OC43-RESP PCR NOT DETECTED; HUMAN METAPNEUMOVIRUS NOT DETECTED; INFLUENZA A- RESP PCR PANEL NOT DETECTED; INFLUENZA B - RESP PCR PANEL NOT DETECTED; M. PNEUMONIAE- RESP PCR PANEL NOT DETECTED; PARAINFLUENZA VIRUS 1 NOT DETECTED; PARAINFLUENZA VIRUS 2 NOT DETECTED; PARAINFLUENZA VIRUS 3 NOT DETECTED; PARAINFLUENZA VIRUS 4 NOT DETECTED; RHINOVIRUS/ENTEROVIRUS NOT DETECTED; RSV- RESP PCR PANEL NOT DETECTED; SARS-CoV-2 -RESP PCR PANEL NOT DETECTED
[2020-11-20] MEDS ORDERED: LORazepam 2 MG/ML VIAL IVP STA (02:54)
[2020-11-20 03:15] VITALS: BP 140/80
--- NOTE | 2020-11-20 04:47 | ED Physician Documentation ---
ED Addendum - Addendum Addendum: 11/20/20 04:46 Received sign out from Dr. Gutierrez at end of his shift. Patient is alcoholic and presented to ED requesting detox. Plan at sign out is repeat alcohol level and when it is below 250, can attempt placement at appropriate facility. Repeat alcohol level is 167 (down from 340 on initial draw). I went to reevaluate patient and find him sleeping and in NAD. I told him we can proceed with looking for placement for detox/rehab. He adamantly refuses placement and says he wants to go home. When I then talk to him about being discharged, he says he wants to stay in the emergency department for the express purpose of sleeping. I explained that staying in the ED for no other reason then getting sleep is inappropriate and that he will either be discharged or else he would need to have a medical reason for staying in ED (which would include seeking detox, which he again clearly refuses). He repeatedly requests medication for "shakes" (per patient), specifically ativan. He says this has helped before with withdrawal. He only exhibits tremulousness in one hand whenever he raises it up to demonstrate tremulousness, but repeatedly stops shaking when engaged in conversation. Although he does not currently exhibit signs/symptoms of withdrawal, he is at risk for withdrawal symptoms given the description he provides of recent heavy and regular alcohol intake and thus he is given a dose of PO ativan and rx for brief taper. He is in NAD at time of discharged and ambulated out of ED without difficulty or assistance.
== END 2020-11-20 03:13 | disposition home or self-care (01) ==
LOC: EDUNIT# → ED 18:05
DX: F10.129 Alcohol abuse with intoxication, unspecified (principal); Y90.8 Blood alcohol level of 240 mg/100 ml or more; R00.0 Tachycardia, unspecified; F17.200 Nicotine dependence, unspecified, uncomplicated; Z20.822 Contact with and (suspected) exposure to COVID-19
CPT/HCPCS: 0202U; 36415; 80053; 80307; 80320; 80329; 83690; 83735; 84100; 84443; 85025; 93005; 96365; 96375; 99283; 99284; J2060; J3411

== ENCOUNTER 2021-11-26 11:28 | Outpatient (CLI) | payer MEDICAID ==
[2021-11-26 14:40] LABS: BASOPHILS % (AUTO) 0.6 %; EOSINOPHILS # (AUTO) 0.1 10^3/uL (0.0-0.7); EOSINOPHILS % (AUTO) 1.6 %; HCT - HEMATOCRIT 39.9 % (42.0-52.0); HGB - HEMOGLOBIN 13.4 g/dL (14.0-18.0); LYMPHOCYTES # (AUTO) 1.7 10^3/uL (1.5-3.5); LYMPHOCYTES % (AUTO) 26.6 %; MEAN CORPUSCULAR HEMOGLOBIN 32.3 pg (27.0-31.0); MEAN CORPUSCULAR HGB CONC 33.6 g/dL (32.0-36.0); MEAN CORPUSCULAR VOLUME 96.1 fL (80.0-94.0); MEAN PLATELET VOLUME 9.4 fL (7.4-11.4); MONOCYTES # (AUTO) 0.7 10^3/uL (0.0-1.0); NEUTROPHILS # (AUTO) 3.8 10^3/uL (1.5-6.6); NEUTROPHILS % (AUTO) 59.7 %; PLT - PLATELET COUNT 306 10^3/uL (130-450); RED BLOOD COUNT 4.15 10^6/uL (4.70-6.10); RED CELL DISTRIBUTION WIDTH 12.8 % (12.0-15.0); WHITE BLOOD COUNT 6.4 x10^3/uL (4.8-10.8)
[2021-11-26 14:58] LABS: THYROID STIMULATING HORMONE 0.95 uIU/mL (0.34-5.60)
[2021-11-26 14:59] LABS: ALBUMIN 4.6 g/dL (3.2-5.5); ALBUMIN/GLOBULIN RATIO 1.8 (1.0-2.2); ALKALINE PHOSPHATASE 49 IU/L (42-121); ALT ALANINE AMINOTRANSFERASE 21 IU/L (10-60); AST ASPARTATE AMINOTRANSFERASE 26 IU/L (10-42); BILIRUBIN,TOTAL 1.4 mg/dL (0.2-1.0); BUN - BLOOD UREA NITROGEN 13 mg/dL (6-20); CARBON DIOXIDE - CO2 27 mmol/L (21-32); CHLORIDE 91 mmol/L (101-111); CHOL/HDL RATIO 3.8 (<5.0); CHOLESTEROL 215 mg/dL; CREATININE 0.9 mg/dL (0.6-1.2); GFR - MDRD 87 (>89); GLUCOSE 99 mg/dL (70-100); HDL CHOLESTEROL 57 mg/dL; LDL CHOLESTEROL,CALCULATED 125 mg/dL; LDL/HDL RATIO 2.2 (<3.6); POTASSIUM 4.5 mmol/L (3.5-5.0); SODIUM 128 mmol/L (135-145); TOTAL PROTEIN 7.1 g/dL (6.7-8.2); TRIGLYCERIDES 164 mg/dL; VLDL CHOLESTEROL 33 mg/dL
== END 2021-11-26 11:29 | disposition home or self-care (01) ==
LOC: LAB.S 11:28
PROVIDERS: ATTEND Registered Nurse
DX: Z13.228 Encounter for screening for other metabolic disorders (principal); Z13.220 Encounter for screening for lipoid disorders; Z12.5 Encounter for screening for malignant neoplasm of prostate; Z13.29 Encounter for screening for other suspected endocrine disorder; Z13.0 Encounter for screening for diseases of the blood and blood-forming organs and certain disorders involving the immune mechanism
CPT/HCPCS: 36415; 80050; 80061; 83721; 84153

== ENCOUNTER 2022-10-07 15:38 | Emergency (ER) | payer MEDICAID ==
[2022-10-07 16:07] VITALS: BP 150/116
[2022-10-07] MEDS ORDERED: FOLIC ACID INJ 1 MG in SODIUM CHLORIDE 0.9% 1,000 ML IV STA (16:57)
[2022-10-07] MEDS ORDERED: THIAMINE INJ 100 MG in SODIUM CHLORIDE 0.9% 50 ML IV STA (16:58)
[2022-10-07 17:11] LABS: BASOPHILS % (AUTO) 0.3 %; EOSINOPHILS % (AUTO) 0.2 %; HCT - HEMATOCRIT 38.2 % (42.0-52.0); HGB - HEMOGLOBIN 13.4 g/dL (14.0-18.0); LYMPHOCYTES # (AUTO) 1.3 10^3/uL (1.5-3.5); LYMPHOCYTES % (AUTO) 21.5 %; MEAN CORPUSCULAR HEMOGLOBIN 33.4 pg (27.0-31.0); MEAN CORPUSCULAR HGB CONC 35.1 g/dL (32.0-36.0); MEAN CORPUSCULAR VOLUME 95.3 fL (80.0-94.0); MEAN PLATELET VOLUME 8.7 fL (7.4-11.4); MONOCYTES # (AUTO) 0.5 10^3/uL (0.0-1.0); MONOCYTES % (AUTO) 7.7 %; NEUTROPHILS # (AUTO) 4.2 10^3/uL (1.5-6.6); NEUTROPHILS % (AUTO) 70.1 %; PLT - PLATELET COUNT 275 10^3/uL (130-450); RED BLOOD COUNT 4.01 10^6/uL (4.70-6.10); RED CELL DISTRIBUTION WIDTH 12.1 % (12.0-15.0)
[2022-10-07] MEDS ORDERED: FOLIC ACID 5 MG/1 ML 10ML MDV ONE (17:12)
--- NOTE | 2022-10-07 17:12 | ED Physician Documentation ---
History of Present Illness - Stated complaint Stated Complaint: UNABLE TO SLEEP - Chief complaint Chief Complaint: General - Additonal information Additional information: 57-year-old male who has a history of alcohol abuse as well as withdrawal/DT's presents to the ER with inability to sleep and requesting help to stop drinking. States that he has a long COVID symptoms. He decided a week ago to binge drink his way through long COVID and over the last week he has consumed 4 to 5 L of vodka. He last drank about an hour prior to arrival. He does want help to stop drinking but is fearful to do it on his own but does not want to go to detox today Review of Systems Constitutional: denies: Fever, Chills Skin: reports: Reviewed and negative Musculoskeletal: reports: Reviewed and negative Psychiatric: reports: Reviewed and negative PD PAST MEDICAL HISTORY - Past Medical History Past Medical History: Yes Cardiovascular: High cholesterol, Arrhythmia Respiratory: Other Neuro: None Endocrine/Autoimmune: None GI: None : None HEENT: Chronic sinusitis Psych: Depression, Anxiety Musculoskeletal: None Derm: None Other Past Medical History: ALCOHOLISM... - Past Surgical History Past Surgical History: No - Present Medications Home Medications: Ambulatory Orders Medication Instructions Recorded Confirmed hydroCHLOROthiazide 12.5 mg PO DAILY 05/02/18 09/30/20 [Hydrochlorothiazide] lisinopriL [Lisinopril] 10 mg PO DAILY 05/02/18 09/30/20 Atorvastatin [Lipitor] 10 mg PO DAILY 11/20/19 09/30/20 Thiamine [Vitamin B-1] 100 mg PO DAILY #10 tablet 09/30/20 LORazepam [Ativan] 1 mg PO TID PRN #12 tablet 10/07/22 PHENobarbitaL [Phenobarbital] 30 mg PO DAILY #9 tablet 10/07/22 - Allergies Allergies/Adverse Reactions: Allergies Allergy/AdvReac Type Severity Reaction Status Date / Time Penicillins Allergy Mild Unknown Verified 10/07/22 16:07 sertraline Allergy Unknown Verified 10/07/22 16:07 - Social History Does the pt smoke?: Yes Smoking Status: Current every day smoker Does the pt drink ETOH?: Yes Does the pt have substance abuse?: No - Immunizations Immunizations are current?: Yes - POLST Patient has POLST: No POLST Status: Full Code PD ED PE NORMAL - General General: Alert and oriented X 3, No acute distress, Well developed/nourished - HEENT HEENT: Atraumatic - Cardiac Cardiac: RRR, No murmur - Respiratory Respiratory: No respiratory distress, Clear bilaterally - Abdomen Abdomen: Normal bowel sounds, Soft - Back Back: No CVA TTP, No spinal TTP - Derm Derm: Normal color, Warm and dry, No rash - Extremities Extremities: No deformity, Other (No tremor noted) - Neuro Neuro: Alert and oriented X 3, 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 Eye Opening: Spontaneous Motor: Obeys Commands Verbal: Oriented GCS Score: 15 Results - Vitals Vitals: Vital Signs - 24 hr 10/07/22 10/07/22 10/07/22 15:59 16:10 16:31 Temperature 37.0 C Heart Rate 118 H Respiratory 183 H 17 17 Rate Blood Pressure 150/116 H O2 Saturation 96 10/07/22 10/07/22 10/07/22 16:37 17:04 17:25 Temperature Heart Rate 103 H 105 H 102 H Respiratory 17 17 17 Rate Blood Pressure O2 Saturation 94 96 96 10/07/22 17:34 Temperature Heart Rate 99 Respiratory 18 Rate Blood Pressure O2 Saturation 94 Oxygen O2 Source Room air - Labs Labs: Laboratory Tests 10/07/22 10/07/22 10/07/22 17:00 17:00 17:00 WBC 6.0 RBC 4.01 L Hgb 13.4 L Hct 38.2 L MCV 95.3 H MCH 33.4 H MCHC 35.1 RDW 12.1 Plt Count 275 MPV 8.7 Neut # (Auto) 4.2 Lymph # (Auto) 1.3 L [place] # (Auto) 0.5 Eos # (Auto) 0.0 Baso # (Auto) 0.0 Absolute Nucleated RBC 0.00 Nucleated RBC % 0.0 PT 10.6 INR 0.9 Sodium 127 L Potassium 3.9 Chloride 85 L Carbon Dioxide 21 Anion Gap 21.0 H BUN 17 Creatinine 1.2 Estimated GFR (MDRD) 62 L Glucose 120 H Calcium 9.5 Total Bilirubin 1.2 H AST 41 ALT 34 Alkaline Phosphatase 56 Ammonia Total Protein 7.0 Albumin 4.6 Globulin 2.4 Albumin/Globulin Ratio 1.9 Lipase 51 Ethyl Alcohol 276.3 10/07/22 17:00 WBC RBC Hgb Hct MCV MCH MCHC RDW Plt Count MPV Neut # (Auto) Lymph # (Auto) [place] # (Auto) Eos # (Auto) Baso # (Auto) Absolute Nucleated RBC Nucleated RBC % PT INR Sodium Potassium Chloride Carbon Dioxide Anion Gap BUN Creatinine Estimated GFR (MDRD) Glucose Calcium Total Bilirubin AST ALT Alkaline Phosphatase Ammonia 26.2 Total Protein Albumin Globulin Albumin/Globulin Ratio Lipase Ethyl Alcohol PD Medical Decision Making - ED course Complexity details: reviewed old records, reviewed results, re-evaluated patient, considered differential, d/w patient ED course: 57-year-old male who has a history of longstanding alcohol abuse presents to the emergency department requesting help to sleep. He states he has long COVID. In order to help manage the symptoms he has been binging on alcohol this week. He does have a history of withdrawal. On presentation the patient is clinically intoxicated with a blood alcohol of 270. Reported CIWA 9, secondary to headache. He has mild hypertension but no tremor. Pt was administered 30 mg phenobarbital here in the ED I discussed with the patient the risk of alcohol cessation abruptly which can be life-threatening. He is not yet ready for inpatient detox. He would like to try some outpatient medications first. As such I have acquiesced to prescribe him some phenobarbital 30 mg twice daily for 3 days followed by 1 mg daily for 3 days as well as some as needed Ativan. I have given the patient the number for [facility] to call when he is ready to go through formal detox. We discussed that abrupt alcohol cessation is life-threatening. He is advised to do it under a appropriate medical detox. Patient is discharged home in stable condition. We discussed the usual emergent return precautions for concerns of alcohol withdrawal Departure - Departure Disposition: 01 Home, Self Care Clinical Impression: Alcohol abuse Condition: Stable Record reviewed to determine appropriate education?: Yes Instructions: ED Withdrawal Alcohol Prescriptions: LORazepam [Ativan] 1 mg PO TID PRN #12 tablet PRN Reason: Alcohol Withdrawal PHENobarbitaL [Phenobarbital] 30 mg PO DAILY #9 tablet Comments: [facility] aptricio came to the emergency department because you are concerned that you could go into withdrawal if you stop drinking. You are not in withdrawal at this time. It is important not to suddenly stop drinking but if you are choosing not to drink I can prescribe you some medication that may help prevent or aid you through withdrawal. A prescription for phenobarbital has been sent to the [facility] in [place]. You will take this twice daily for 3 days followed by once daily for an additional 3 days. I have also prescribed some Ativan that can be used 3 times a day as needed for withdrawal. If at any point you feel that you are not successful, you begin to have tremor, shakes or discoordination you need to return immediately to the ER. It is never safe to suddenly stop drinking. I recommend that if you are going to stop drinking you do it in conjunction with an alcohol withdrawal or detox at this facility. [facility] in [place] can often help people manage their withdrawal. Please call them [phone] when you are ready to stop drinking Discharge Date/Time: 10/07/22 18:03
[2022-10-07] MEDS ORDERED: THIAMINE 100 MG/1 ML 2 ML MDV ONE (17:13)
[2022-10-07 17:22] LABS: INR 0.9 (0.8-1.2); PT - PROTHROMBIN TIME 10.6 secs (9.9-12.6)
[2022-10-07 17:24] LABS: ALBUMIN 4.6 g/dL (3.2-5.5); ALBUMIN/GLOBULIN RATIO 1.9 (1.0-2.2); BILIRUBIN,TOTAL 1.2 mg/dL (0.2-1.0); CALCIUM 9.5 mg/dL (8.5-10.3); CREATININE 1.2 mg/dL (0.6-1.2); ETOH - ETHANOL 276.3 mg/dL; POTASSIUM 3.9 mmol/L (3.5-5.0)
[2022-10-07] MEDS ORDERED: PHENobarbitaL 32.4 MG TABLET PO STA (17:32)
== END 2022-10-07 18:03 | disposition home or self-care (01) ==
LOC: ED 15:38
DX: F10.129 Alcohol abuse with intoxication, unspecified (principal); Y90.8 Blood alcohol level of 240 mg/100 ml or more; R51.9 Headache, unspecified; I10 Essential (primary) hypertension; F17.200 Nicotine dependence, unspecified, uncomplicated
CPT/HCPCS: 36415; 80053; 80320; 82140; 83690; 85025; 85610; 96365; 96368; 99283; 99284; A9270; J3411; J7040

== ENCOUNTER 2022-11-24 11:50 | Outpatient (CLI) | payer MEDICAID ==
[2022-11-24 14:46] LABS: BASOPHILS % (AUTO) 0.6 %; EOSINOPHILS # (AUTO) 0.1 10^3/uL (0.0-0.7); EOSINOPHILS % (AUTO) 1.6 %; HCT - HEMATOCRIT 38.4 % (42.0-52.0); HGB - HEMOGLOBIN 12.8 g/dL (14.0-18.0); LYMPHOCYTES # (AUTO) 1.4 10^3/uL (1.5-3.5); LYMPHOCYTES % (AUTO) 22.5 %; MEAN CORPUSCULAR HEMOGLOBIN 33.1 pg (27.0-31.0); MEAN CORPUSCULAR HGB CONC 33.3 g/dL (32.0-36.0); MEAN CORPUSCULAR VOLUME 99.2 fL (80.0-94.0); MONOCYTES # (AUTO) 0.6 10^3/uL (0.0-1.0); MONOCYTES % (AUTO) 9.8 %; NEUTROPHILS # (AUTO) 4.1 10^3/uL (1.5-6.6); NEUTROPHILS % (AUTO) 65.2 %; PLT - PLATELET COUNT 379 10^3/uL (130-450); RED BLOOD COUNT 3.87 10^6/uL (4.70-6.10); RED CELL DISTRIBUTION WIDTH 13.1 % (12.0-15.0); WHITE BLOOD COUNT 6.2 x10^3/uL (4.8-10.8)
[2022-11-24 15:39] LABS: ALBUMIN 4.4 g/dL (3.2-5.5); ALBUMIN/GLOBULIN RATIO 1.5 (1.0-2.2); ALKALINE PHOSPHATASE 59 IU/L (42-121); ALT ALANINE AMINOTRANSFERASE 22 IU/L (10-60); AST ASPARTATE AMINOTRANSFERASE 25 IU/L (10-42); BILIRUBIN,TOTAL 0.8 mg/dL (0.2-1.0); BUN - BLOOD UREA NITROGEN 12 mg/dL (6-20); CALCIUM 9.6 mg/dL (8.5-10.3); CARBON DIOXIDE - CO2 28 mmol/L (21-32); CHLORIDE 100 mmol/L (101-111); CHOL/HDL RATIO 2.7 (<5.0); CHOLESTEROL 178 mg/dL; CREATININE 0.9 mg/dL (0.6-1.2); GFR - MDRD 86 (>89); GLUCOSE 115 mg/dL (70-100); HDL CHOLESTEROL 65 mg/dL; LDL CHOLESTEROL,CALCULATED 89 mg/dL; LDL/HDL RATIO 1.4 (<3.6); SODIUM 138 mmol/L (135-145); TOTAL PROTEIN 7.4 g/dL (6.7-8.2); TRIGLYCERIDES 121 mg/dL; VLDL CHOLESTEROL 24 mg/dL
--- NOTE | 2022-11-24 16:34 | XRAY Report ---
PROCEDURE: Knee 2 View RT INDICATIONS: RIGHT KNEE PAIN TECHNIQUE: 2 views of the right knee(s) were acquired. COMPARISON: None. FINDINGS: Bones: No fractures or dislocations. No suspicious bony lesions. [id number] right knee tricom partmental osteoarthritic degenerative change with marginal osteophytosis and slight joint space narr owing. Soft tissues: Trace knee joint effusion. No suspicious soft tissue calcifications or masses. IMPRESSION: Tricompartmental osteoarthritis. Reviewed by: Lazara Russ MD, PhD on 11/24/2022 4:32 PM PDT Approved by: Lazara Russ MD, PhD on 11/24/2022 4:32 PM PDT Station ID: [id number]
--- NOTE | 2022-11-24 16:35 | XRAY Report ---
PROCEDURE: Shoulder 2 View BILAT INDICATIONS: SHOULDER PAIN TECHNIQUE: 3 views of the right shoulder and left shoulder were acquired. COMPARISON: None. FINDINGS: Bones: No fractures or dislocations. No suspicious bony lesions. Visualized ribs appear intact. Mo derate right and mild left acromioclavicular joint osteoarthritis. Mild bilateral glenohumeral joint osteoarthritis. Soft tissues: No suspicious soft tissue calcifications. IMPRESSION: Bilateral acromioclavicular joint and glenohumeral joint osteoarthritis. Reviewed by: Lazara Russ MD, PhD on 11/24/2022 4:33 PM PDT Approved by: Lazara Russ MD, PhD on 11/24/2022 4:33 PM PDT Station ID: [id number]
[2022-11-25 04:09] LABS: HIV SCREEN 4TH GENERATION Non Reactive (Non Reactive)
== END 2022-11-24 11:51 | disposition home or self-care (01) ==
LOC: DI.S 11:50
PROVIDERS: ATTEND Registered Nurse
DX: M19.012 Primary osteoarthritis, left shoulder (principal); M19.011 Primary osteoarthritis, right shoulder; M17.11 Unilateral primary osteoarthritis, right knee; Z11.4 Encounter for screening for human immunodeficiency virus [HIV]; Z13.220 Encounter for screening for lipoid disorders; Z13.228 Encounter for screening for other metabolic disorders
CPT/HCPCS: 36415; 80050; 80061; 83721; 84153; 87389

== ENCOUNTER 2022-12-31 08:00 | Outpatient (CLI) | payer MEDICAID ==
--- NOTE | 2022-12-31 15:51 | XRAY Report ---
PROCEDURE: Knee 3 View RT INDICATIONS: RIGHT KNEE PAIN BILAT AP, RIGHT TUNNEL, RIGHT [place] ONLY TECHNIQUE: 3 views of the right knee(s) were acquired. COMPARISON: None. FINDINGS: Bones: No fractures or dislocations. No suspicious bony lesions. Tricompartmental joint space shubham rowing with associated osteophytosis. Soft tissues: No knee joint effusion. No suspicious soft tissue calcifications or masses. IMPRESSION: Mild to moderate tricompartmental osteoarthritis. Kellgren-Kobi scale of osteoarthritis: 2 Reviewed by: Tim Castanon on 12/31/2022 3:49 PM PDT Approved by: Tim Castanon on 12/31/2022 3:49 PM PDT Station ID: [id number]
== END 2022-12-31 23:59 | disposition home or self-care (01) ==
LOC: DI.WOS 08:00
PROVIDERS: ATTEND Physician Assistant Surgical
DX: M17.11 Unilateral primary osteoarthritis, right knee (principal)

== ENCOUNTER 2023-01-16 18:32 | Emergency (ER) | payer MEDICAID ==
[2023-01-16] MEDS ORDERED: DEXAMETHASONE 10 MG/ML VIAL IM STA (19:03)
[2023-01-16] MEDS ORDERED: diphenhydrAMINE 25 MG CAPSULE PO STA (19:04)
[2023-01-16] MEDS ORDERED: FAMOTIDINE 20 MG TABLET PO STA (19:04)
[2023-01-16] MEDS ORDERED: chlordiazePOXIDE 25 MG CAPSULE PO STA (19:12)
--- NOTE | 2023-01-16 19:14 | ED Physician Documentation ---
History of Present Illness - Stated complaint Stated Complaint: RASH - Chief complaint Chief Complaint: General - History obtained from History obtained from: Patient - Additonal information Additional information: 57-year-old male with a history of alcohol use disorder presents with very pruritic rash on his arms, torso and groin and back. Is been present for the last 2 days. It comes and goes and is extremely itchy but not tender. He denies any new soaps lotions detergents or other topical contacts, no new medications or other potential allergens. He bought some clotrimazole cream as well as a spray [id number] and has been using that without relief. He thinks he may have taken benadryl as well because he believes this is what he takes to help him sleep, but he is not sure. Review of Systems Constitutional: reports: Reviewed and negative Cardiac: reports: Reviewed and negative Respiratory: reports: Reviewed and negative GI: reports: Reviewed and negative : reports: Reviewed and negative Skin: reports: Rash Musculoskeletal: reports: Reviewed and negative Neurologic: reports: Reviewed and negative Psychiatric: reports: Reviewed and negative Endocrine: reports: Reviewed and negative PD PAST MEDICAL HISTORY - Past Medical History Past Medical History: Yes Cardiovascular: High cholesterol, Arrhythmia Respiratory: Other Neuro: None Endocrine/Autoimmune: None GI: None : None HEENT: Chronic sinusitis Psych: Depression, Anxiety Musculoskeletal: None Derm: None - Past Surgical History Past Surgical History: No - Present Medications Home Medications: Ambulatory Orders Medication Instructions Recorded Confirmed hydroCHLOROthiazide 25 mg PO DAILY 05/02/18 09/30/20 [Hydrochlorothiazide] lisinopriL [Lisinopril] 40 mg PO DAILY 05/02/18 09/30/20 Diclofenac Sodium 75 mg PO BID 01/16/23 01/16/23 Famotidine [Acid Beamer Helper] 20 mg PO BID #30 tab 01/16/23 chlordiazePOXIDE [Librium] 25 mg PO Q6H PRN #12 cap 01/16/23 diphenhydrAMINE [Benadryl] 25 mg PO Q4-6H PRN #30 cap 01/16/23 - Allergies Allergies/Adverse Reactions: Allergies Allergy/AdvReac Type Severity Reaction Status Date / Time Penicillins Allergy Mild Unknown Verified 01/16/23 18:46 sertraline Allergy Unknown Verified 01/16/23 18:46 - Social History Does the pt smoke?: Yes Smoking Status: Current every day smoker Does the pt drink ETOH?: Yes Does the pt have substance abuse?: No - Immunizations Immunizations are current?: Yes - POLST Patient has POLST: No POLST Status: Full Code PD ED PE NORMAL - Vitals Vital signs reviewed: Yes - General General: Alert and oriented X 3, No acute distress, Well developed/nourished, Other - HEENT HEENT: Atraumatic, Pharynx benign - Neck Neck: Supple, no meningeal sign, No JVD - Cardiac Cardiac: No murmur, No gallop, No rub, Strong equal pulses, Other (tachycardic) - Respiratory Respiratory: No respiratory distress, Clear bilaterally - Abdomen Abdomen: Normal bowel sounds, Soft, Non tender, Non distended - Derm Derm: Normal color, Warm and dry, Other (raised wheels/urticaria on torso, arms, and groin bilat. non tender to touch, no vesicles or pustules, no abscesses. ) - Extremities Extremities: No deformity, No tenderness to palpate, Normal ROM s pain, No edema Results - Vitals Vitals: Vital Signs - 24 hr 01/16/23 01/16/23 18:39 19:38 Temperature 37 C 36.4 C L Heart Rate 122 H 109 H Respiratory 20 18 Rate Blood Pressure 117/76 100/58 L O2 Saturation 97 97 Oxygen O2 Source Room air PD Medical Decision Making - ED course Complexity details: considered differential, d/w patient ED course: Lateral arms and groin area, no vesicles or pustules, nontender to touch. 57-year-old male presents with rash that is pruritic, on torso, arms and groin. Rash appears to be urticaria, raised wheals and is extremely pruritic. No signs of infection, no vesicles or pustules or abscesses. Patient was given 10 mg of IM Decadron given severity of itchiness and diffuseness of rash, he was also given Benadryl and famotidine with improvement in his symptoms while here. He is to continue Benadryl and famotidine at home over the next several days and urticaria should resolve. Patient was noted to be mildly anxious and tachycardic and we did discuss alcohol use, he states that he has not had a drink for 4 days and does feel mild withdrawal symptoms but "nothing I have not been through before." Patient states intention to abstain from drinking and would like medication to help if possible. He is not having any GI symptoms, no hematemesis, no hallucinations no agitation. Given his mild withdrawal symptoms, he is appropriate for outpatient management with Librium. He was given 1 dose of Librium here and can continue every 6 hours as needed over the next several days. The patient was counseled not to drink alcohol concurrently as this could lead to over sedation and . Patient states understanding And declines any alcohol rehab resources at this time. He is aware of local resources including [facility] and . Departure - Departure Disposition: Home, Self Care Clinical Impression: Urticaria Alcohol withdrawal Qualifiers: Complication of substance-induced condition: uncomplicated Qualified Code(s): F10.930 - Alcohol use, unspecified with withdrawal, uncomplicated Condition: Good Instructions: ED Withdrawal Alcohol, ED Urticaria Prescriptions: Famotidine [Acid Beamer Helper] 20 mg PO BID #30 tab diphenhydrAMINE [Benadryl] 25 mg PO Q4-6H PRN #30 cap PRN Reason: Itching chlordiazePOXIDE [Librium] 25 mg PO Q6H PRN #12 cap PRN Reason: alcohol withdrawal symptoms Comments: Please use the famotidine and benadryl to help with your rash. They were sent to [facility]. The rash may be due to alcohol withdrawal stress or a number of other causes of hives. They will resolve within the next few days. You have mild symptoms of alcohol withdrawal and were given one dose of librium. Please continue sobriety, return if withdrawal symptoms worsen. Forms: PCP List Discharge Date/Time: 01/16/23 19:45
[2023-01-16 19:51] VITALS: BP 100/58
== END 2023-01-16 19:45 | disposition home or self-care (01) ==
LOC: ED 18:32
DX: L50.9 Urticaria, unspecified (principal); F10.930 Alcohol use, unspecified with withdrawal, uncomplicated; E78.00 Pure hypercholesterolemia, unspecified; F17.200 Nicotine dependence, unspecified, uncomplicated; Z79.899 Other long term (current) drug therapy
CPT/HCPCS: 96372; 99283; A9270

== ENCOUNTER 2023-02-11 10:44 | Outpatient (CLI) | payer MEDICAID | END 2023-02-11 10:45 | disposition home or self-care (01) | LOC: RT 10:44 | PROVIDERS: ATTEND Registered Nurse | DX: R06.09 Other forms of dyspnea (principal); R53.83 Other fatigue | CPT/HCPCS: 94010; 94729 ==

== ENCOUNTER 2023-04-08 12:25 | Outpatient (CLI) | payer MEDICAID | END 2023-04-08 12:26 | disposition home or self-care (01) | LOC: DI 12:25 | PROVIDERS: ATTEND Registered Nurse | DX: R06.09 Other forms of dyspnea (principal); R55 Syncope and collapse; I10 Essential (primary) hypertension; F17.209 Nicotine dependence, unspecified, with unspecified nicotine-induced disorders; F10.99 Alcohol use, unspecified with unspecified alcohol-induced disorder; E78.5 Hyperlipidemia, unspecified | CPT/HCPCS: 93306 ==

== ENCOUNTER 2024-01-12 08:47 | Outpatient (CLI) | payer MEDICAID ==
[2024-01-12 14:50] LABS: BASOPHILS % (AUTO) 0.7 %; EOSINOPHILS # (AUTO) 0.1 10^3/uL (0.0-0.7); EOSINOPHILS % (AUTO) 2.3 %; HCT - HEMATOCRIT 41.4 % (42.0-52.0); HGB - HEMOGLOBIN 13.5 g/dL (14.0-18.0); LYMPHOCYTES # (AUTO) 1.2 10^3/uL (1.5-3.5); LYMPHOCYTES % (AUTO) 27.9 %; MEAN CORPUSCULAR HEMOGLOBIN 31.8 pg (27.0-31.0); MEAN CORPUSCULAR HGB CONC 32.6 g/dL (32.0-36.0); MEAN CORPUSCULAR VOLUME 97.6 fL (80.0-94.0); MEAN PLATELET VOLUME 9.6 fL (7.4-11.4); MONOCYTES # (AUTO) 0.8 10^3/uL (0.0-1.0); MONOCYTES % (AUTO) 17.7 %; NEUTROPHILS # (AUTO) 2.2 10^3/uL (1.5-6.6); NEUTROPHILS % (AUTO) 51.4 %; PLT - PLATELET COUNT 254 10^3/uL (130-450); RED BLOOD COUNT 4.24 10^6/uL (4.70-6.10); RED CELL DISTRIBUTION WIDTH 12.8 % (12.0-15.0); WHITE BLOOD COUNT 4.3 x10^3/uL (4.8-10.8)
[2024-01-12 15:30] LABS: ALBUMIN 4.9 g/dL (3.2-5.5); ALBUMIN/GLOBULIN RATIO 2.3 (1.0-2.2); ALKALINE PHOSPHATASE 48 IU/L (42-121); ALT ALANINE AMINOTRANSFERASE 21 IU/L (10-60); AST ASPARTATE AMINOTRANSFERASE 22 IU/L (10-42); BILIRUBIN,TOTAL 0.8 mg/dL (0.2-1.0); BUN - BLOOD UREA NITROGEN 14 mg/dL (6-20); CALCIUM 10.1 mg/dL (8.5-10.3); CARBON DIOXIDE - CO2 28 mmol/L (21-32); CHLORIDE 99 mmol/L (101-111); CHOL/HDL RATIO 3.8 (<5.0); CHOLESTEROL 241 mg/dL; GFR - MDRD 76 (>89); GLUCOSE 102 mg/dL (74-104); HDL CHOLESTEROL 63 mg/dL; LDL CHOLESTEROL,CALCULATED 153 mg/dL; LDL/HDL RATIO 2.4 (<3.6); POTASSIUM 3.5 mmol/L (3.5-4.5); SODIUM 134 mmol/L (135-145); TRIGLYCERIDES 126 mg/dL; VLDL CHOLESTEROL 25 mg/dL
[2024-01-12 15:43] LABS: THYROID STIMULATING HORMONE 0.95 uIU/mL (0.34-5.60)
== END 2024-01-12 08:48 | disposition home or self-care (01) ==
LOC: LAB.S 08:47
PROVIDERS: ATTEND Registered Nurse
DX: E78.5 Hyperlipidemia, unspecified (principal); Z13.228 Encounter for screening for other metabolic disorders; Z13.29 Encounter for screening for other suspected endocrine disorder; Z13.0 Encounter for screening for diseases of the blood and blood-forming organs and certain disorders involving the immune mechanism
CPT/HCPCS: 36415; 80050; 80061; 83721